=== PATIENT | male | born 1945 | race Caucasian/White ===

== ENCOUNTER 2016-03-16 10:26 | Outpatient (CLI) | payer MEDICARE | END 2016-03-16 10:27 | disposition home or self-care (01) | DX: Z95.2 Presence of prosthetic heart valve (principal); Z79.01 Long term (current) use of anticoagulants ==

== ENCOUNTER 2016-03-22 08:00 | Outpatient (CLI) | payer MEDICARE | END 2016-03-22 08:01 | disposition home or self-care (01) | DX: Z95.2 Presence of prosthetic heart valve (principal); Z79.01 Long term (current) use of anticoagulants ==

== ENCOUNTER 2016-03-24 06:15 | Day surgery (SDC) | payer MEDICARE ==
[~2016-03-24 06:15] MED LIST: MIDAZOLAM 2 MG/2 ML VIAL IVP ONE
[2016-03-24] MEDS ORDERED: PHENYLEPHRINE 2.5% OPHTH 2 ML DROPS ONE (06:24)
[2016-03-24] MEDS ORDERED: CYCLOPENTOLATE 1% OPHTH DROPS 2 ML OPTH ONE (06:45)
[2016-03-24] MEDS ORDERED: PROPARACAINE 0.5% OPHTH DROPS 15 ML OPTH ONE (06:45)
[2016-03-24] MEDS ORDERED: KETOROLAC 0.45% OPHTH DROPS OPTH ONE (06:45)
[2016-03-24] MEDS ORDERED: PHENYLEPHRINE 2.5% OPHTH 2 ML DROPS OPTH ONE (06:45)
[2016-03-24] MEDS ORDERED: LACTATED RINGERS 500 ML IV ONE (07:00)
[2016-03-24] MEDS ORDERED: EPINEPHrine 1 MG/ML AMP IVP ONE (07:30)
[2016-03-24] MEDS ORDERED: BSS/LIDOCAINE/EPINEPHRINE 1 ML SYRINGE IO ONE (07:30)
[2016-03-24] MEDS ORDERED: TRIAMCIN/MOXIFLOX/VANCO 1 ML VIAL IO ONE (07:30)
[2016-03-24] MEDS ORDERED: MIDAZOLAM 2 MG/2 ML VIAL IVP ONE (07:30)
[2016-03-24] MEDS ORDERED: LIDOCAINE-MPF 2% 5 ML VIAL IM ONE (07:30)
[2016-03-24] MEDS ORDERED: BRIMONIDINE 0.2% OPHTH DROPS 5 ML OPTH ONE (07:30)
[2016-03-24] MEDS ORDERED: CHONDR SULF/HYALURONATE SYRINGE IO ONE (07:30)
== END 2016-03-24 06:16 | disposition home or self-care (01) ==
PROC: 08RK3JZ Replacement of Left Lens with Synthetic Substitute, Percutaneous Approach (ICD-10-PCS; principal; 2016-03-24 07:30)
DX: H25.12 Age-related nuclear cataract, left eye (principal); I48.91 Unspecified atrial fibrillation; Z79.01 Long term (current) use of anticoagulants; G47.33 Obstructive sleep apnea (adult) (pediatric); H59.212 Accidental puncture and laceration of left eye and adnexa during an ophthalmic procedure; Y65.8 Other specified misadventures during surgical and medical care; Y92.234 Operating room of hospital as the place of occurrence of the external cause
CPT/HCPCS: 66984; A9270; V2632

== ENCOUNTER 2016-04-05 09:41 | Outpatient (CLI) | payer MEDICARE | END 2016-04-05 09:42 | disposition home or self-care (01) | DX: Z95.2 Presence of prosthetic heart valve (principal); Z79.01 Long term (current) use of anticoagulants ==

== ENCOUNTER 2016-04-29 14:34 | Outpatient (CLI) | payer MEDICARE | END 2016-04-29 14:35 | disposition home or self-care (01) | DX: Z95.2 Presence of prosthetic heart valve (principal); Z79.01 Long term (current) use of anticoagulants ==

== ENCOUNTER 2016-05-27 11:11 | Outpatient (CLI) | payer MEDICARE | END 2016-05-27 11:12 | disposition home or self-care (01) | DX: Z95.2 Presence of prosthetic heart valve (principal); Z79.01 Long term (current) use of anticoagulants ==

== ENCOUNTER 2016-06-03 10:00 | Outpatient (CLI) | payer MEDICARE | END 2016-06-03 10:01 | disposition home or self-care (01) | DX: Z95.2 Presence of prosthetic heart valve (principal); Z79.01 Long term (current) use of anticoagulants ==

== ENCOUNTER 2016-06-10 11:18 | Outpatient (CLI) | payer MEDICARE | END 2016-06-10 11:19 | disposition home or self-care (01) | DX: Z95.2 Presence of prosthetic heart valve (principal); Z79.01 Long term (current) use of anticoagulants ==

== ENCOUNTER 2016-06-24 11:01 | Outpatient (CLI) | payer MEDICARE | END 2016-06-24 11:02 | disposition home or self-care (01) | DX: Z95.2 Presence of prosthetic heart valve (principal); Z79.01 Long term (current) use of anticoagulants ==

== ENCOUNTER 2016-07-22 07:17 | Outpatient (CLI) | payer MEDICARE | END 2016-07-22 07:18 | disposition home or self-care (01) | LOC: LAB.F 07:17 | PROVIDERS: ATTEND Nurse Practitioner Family | DX: Z95.2 Presence of prosthetic heart valve (principal); Z79.01 Long term (current) use of anticoagulants | CPT/HCPCS: 85610 ==

== ENCOUNTER 2016-07-29 15:20 | Outpatient (CLI) | payer MEDICARE | END 2016-07-29 15:21 | disposition home or self-care (01) | LOC: LAB.F 15:20 | PROVIDERS: ATTEND Nurse Practitioner Family | DX: Z95.2 Presence of prosthetic heart valve (principal); Z79.01 Long term (current) use of anticoagulants | CPT/HCPCS: 85610 ==

== ENCOUNTER 2016-08-15 15:27 | Outpatient (CLI) | payer MEDICARE | END 2016-08-15 15:28 | disposition home or self-care (01) | LOC: LAB.S 15:27 | PROVIDERS: ATTEND Nurse Practitioner Family | DX: Z95.2 Presence of prosthetic heart valve (principal); Z79.01 Long term (current) use of anticoagulants | CPT/HCPCS: 85610 ==

== ENCOUNTER 2016-09-05 15:19 | Outpatient (CLI) | payer MEDICARE | END 2016-09-05 15:20 | disposition home or self-care (01) | LOC: LAB.F 15:19 | PROVIDERS: ATTEND Nurse Practitioner Family | DX: Z95.2 Presence of prosthetic heart valve (principal) | CPT/HCPCS: 85610 ==

== ENCOUNTER 2016-09-30 14:34 | Outpatient (CLI) | payer MEDICARE | END 2016-09-30 14:35 | disposition home or self-care (01) | LOC: LAB.F 14:34 | PROVIDERS: ATTEND Nurse Practitioner Family | DX: Z95.2 Presence of prosthetic heart valve (principal); Z79.01 Long term (current) use of anticoagulants | CPT/HCPCS: 85610 ==

== ENCOUNTER → 2016-10-10 | Outpatient (CLI) | payer MEDICARE | LOC: LAB.S 08:00 | PROVIDERS: ATTEND Nurse Practitioner Family | DX: Z95.2 Presence of prosthetic heart valve (principal); Z79.01 Long term (current) use of anticoagulants | CPT/HCPCS: 85610 ==

== ENCOUNTER 2016-10-19 15:19 | Outpatient (CLI) | payer MEDICARE | END 2016-10-19 15:20 | disposition home or self-care (01) | LOC: LAB.F 15:19 | PROVIDERS: ATTEND Nurse Practitioner Family | DX: Z95.2 Presence of prosthetic heart valve (principal); Z79.01 Long term (current) use of anticoagulants | CPT/HCPCS: 85610 ==

== ENCOUNTER 2016-11-04 08:29 | Outpatient (CLI) | payer MEDICARE | END 2016-11-04 08:30 | disposition home or self-care (01) | LOC: LAB.F 08:29 | PROVIDERS: ATTEND Nurse Practitioner Family | DX: Z95.2 Presence of prosthetic heart valve (principal); Z79.01 Long term (current) use of anticoagulants | CPT/HCPCS: 85610 ==

== ENCOUNTER 2016-12-05 15:33 | Outpatient (CLI) | payer MEDICARE | END 2016-12-05 15:34 | disposition home or self-care (01) | LOC: LAB.S 15:33 | PROVIDERS: ATTEND Nurse Practitioner Family | DX: Z95.2 Presence of prosthetic heart valve (principal); Z79.01 Long term (current) use of anticoagulants | CPT/HCPCS: 85610 ==

== ENCOUNTER 2017-01-06 09:52 | Outpatient (CLI) | payer MEDICARE | END 2017-01-06 09:53 | disposition home or self-care (01) | LOC: LAB.F 09:52 | PROVIDERS: ATTEND Nurse Practitioner Family | DX: Z95.2 Presence of prosthetic heart valve (principal); Z79.01 Long term (current) use of anticoagulants | CPT/HCPCS: 85610 ==

== ENCOUNTER 2017-01-27 09:56 | Outpatient (CLI) | payer MEDICARE | END 2017-01-27 09:57 | disposition home or self-care (01) | LOC: LAB.F 09:56 | PROVIDERS: ATTEND Nurse Practitioner Family | DX: Z95.2 Presence of prosthetic heart valve (principal); Z79.01 Long term (current) use of anticoagulants | CPT/HCPCS: 85610 ==

== ENCOUNTER 2017-03-24 10:35 | Outpatient (CLI) | payer MEDICARE | END 2017-03-24 10:36 | disposition home or self-care (01) | LOC: LAB.F 10:35 | PROVIDERS: ATTEND Nurse Practitioner Family | DX: Z95.2 Presence of prosthetic heart valve (principal); Z79.01 Long term (current) use of anticoagulants | CPT/HCPCS: 85610 ==

== ENCOUNTER 2017-03-27 10:08 | Outpatient (CLI) | payer MEDICARE | END 2017-03-27 10:09 | disposition home or self-care (01) | LOC: LAB.F 10:08 | PROVIDERS: ATTEND Nurse Practitioner Family | DX: Z95.2 Presence of prosthetic heart valve (principal); Z79.01 Long term (current) use of anticoagulants | CPT/HCPCS: 85610 ==

== ENCOUNTER 2017-04-03 14:38 | Outpatient (CLI) | payer MEDICARE | END 2017-04-03 14:39 | disposition home or self-care (01) | LOC: LAB.S 14:38 | PROVIDERS: ATTEND Nurse Practitioner Family | DX: Z95.2 Presence of prosthetic heart valve (principal); Z79.01 Long term (current) use of anticoagulants | CPT/HCPCS: 85610 ==

== ENCOUNTER 2017-04-10 15:18 | Outpatient (CLI) | payer MEDICARE | END 2017-04-10 15:19 | disposition home or self-care (01) | LOC: LAB.S 15:18 | PROVIDERS: ATTEND Nurse Practitioner Family | DX: Z95.2 Presence of prosthetic heart valve (principal); Z79.01 Long term (current) use of anticoagulants | CPT/HCPCS: 85610 ==

== ENCOUNTER 2017-04-24 08:00 | Outpatient (CLI) | payer MEDICARE | END 2017-04-24 08:01 | disposition home or self-care (01) | LOC: LAB.S 08:00 | PROVIDERS: ATTEND Nurse Practitioner Family | DX: Z95.2 Presence of prosthetic heart valve (principal); Z79.01 Long term (current) use of anticoagulants | CPT/HCPCS: 85610 ==

== ENCOUNTER 2017-05-05 09:25 | Outpatient (CLI) | payer MEDICARE | END 2017-05-05 09:26 | disposition home or self-care (01) | LOC: LAB.F 09:25 | PROVIDERS: ATTEND Nurse Practitioner Family | DX: Z95.2 Presence of prosthetic heart valve (principal); Z79.01 Long term (current) use of anticoagulants | CPT/HCPCS: 85610 ==

== ENCOUNTER 2017-05-12 09:49 | Outpatient (CLI) | payer MEDICARE | END 2017-05-12 09:50 | disposition home or self-care (01) | LOC: LAB.F 09:49 | PROVIDERS: ATTEND Nurse Practitioner Family | DX: Z95.2 Presence of prosthetic heart valve (principal); Z79.01 Long term (current) use of anticoagulants | CPT/HCPCS: 85610 ==

== ENCOUNTER 2017-05-15 08:00 | Outpatient (CLI) | payer MEDICARE | END 2017-05-15 08:01 | disposition home or self-care (01) | LOC: LAB.S 08:00 | PROVIDERS: ATTEND Nurse Practitioner Family | DX: Z95.2 Presence of prosthetic heart valve (principal); Z79.01 Long term (current) use of anticoagulants | CPT/HCPCS: 85610 ==

== ENCOUNTER 2017-05-22 10:49 | Outpatient (CLI) | payer MEDICARE | END 2017-05-22 10:50 | disposition home or self-care (01) | LOC: LAB.S 10:49 | PROVIDERS: ATTEND Nurse Practitioner Family | DX: Z95.2 Presence of prosthetic heart valve (principal); Z79.01 Long term (current) use of anticoagulants | CPT/HCPCS: 85610 ==

== ENCOUNTER 2017-06-02 08:30 | Outpatient (CLI) | payer MEDICARE | END 2017-06-02 08:31 | disposition home or self-care (01) | LOC: LAB.F 08:30 | PROVIDERS: ATTEND Nurse Practitioner Family | DX: Z95.2 Presence of prosthetic heart valve (principal); Z79.01 Long term (current) use of anticoagulants | CPT/HCPCS: 85610 ==

== ENCOUNTER 2017-06-16 09:28 | Outpatient (CLI) | payer MEDICARE | END 2017-06-16 09:29 | disposition home or self-care (01) | LOC: LAB.F 09:28 | PROVIDERS: ATTEND Nurse Practitioner Family | DX: Z95.2 Presence of prosthetic heart valve (principal); Z79.01 Long term (current) use of anticoagulants | CPT/HCPCS: 85610 ==

== ENCOUNTER 2017-07-14 07:45 | Outpatient (CLI) | payer MEDICARE | END 2017-07-14 07:46 | disposition home or self-care (01) | LOC: LAB.F 07:45 | PROVIDERS: ATTEND Nurse Practitioner Family | DX: Z95.2 Presence of prosthetic heart valve (principal); Z79.01 Long term (current) use of anticoagulants | CPT/HCPCS: 85610 ==

== ENCOUNTER 2017-07-28 08:43 | Outpatient (CLI) | payer MEDICARE | END 2017-07-28 08:44 | disposition home or self-care (01) | LOC: LAB.F 08:43 | PROVIDERS: ATTEND Nurse Practitioner Family | DX: Z79.01 Long term (current) use of anticoagulants (principal); Z95.2 Presence of prosthetic heart valve | CPT/HCPCS: 85610 ==

== ENCOUNTER 2017-08-07 14:47 | Outpatient (CLI) | payer MEDICARE ==
[2017-08-07 18:33] LABS: BASOPHILS # (AUTO) 0.1 10^3/uL (0.0-0.1); BASOPHILS % (AUTO) 1.2 %; EOSINOPHILS # (AUTO) 0.1 10^3/uL (0.0-0.7); EOSINOPHILS % (AUTO) 1.9 %; HGB - HEMOGLOBIN 14.7 g/dL (14.0-18.0); LYMPHOCYTES # (AUTO) 1.4 10^3/uL (1.5-3.5); LYMPHOCYTES % (AUTO) 25.8 %; MEAN CORPUSCULAR HEMOGLOBIN 30.3 pg (27.0-31.0); MEAN CORPUSCULAR HGB CONC 33.3 g/dL (32.0-36.0); MEAN CORPUSCULAR VOLUME 90.9 fL (80.0-94.0); MEAN PLATELET VOLUME 8.9 fL (7.4-11.4); MONOCYTES # (AUTO) 0.4 10^3/uL (0.0-1.0); MONOCYTES % (AUTO) 7.7 %; NEUTROPHILS # (AUTO) 3.5 10^3/uL (1.5-6.6); NEUTROPHILS % (AUTO) 63.4 %; PLT - PLATELET COUNT 212 10^3/uL (130-450); RED BLOOD COUNT 4.84 10^6/uL (4.70-6.10); RED CELL DISTRIBUTION WIDTH 13.8 % (12.0-15.0); WHITE BLOOD COUNT 5.5 x10^3/uL (4.8-10.8)
[2017-08-07 18:42] LABS: CREATININE 0.9 mg/dL (0.6-1.2)
== END 2017-08-07 14:48 | disposition home or self-care (01) ==
LOC: LAB.S 14:47
PROVIDERS: ATTEND Nurse Practitioner Family
DX: Z13.1 Encounter for screening for diabetes mellitus (principal); Z13.0 Encounter for screening for diseases of the blood and blood-forming organs and certain disorders involving the immune mechanism; Z95.3 Presence of xenogenic heart valve; Z95.2 Presence of prosthetic heart valve; Z79.01 Long term (current) use of anticoagulants
CPT/HCPCS: 36415; 80048; 85025; 85610

== ENCOUNTER 2017-08-09 08:03 | Outpatient (CLI) | payer MEDICARE | END 2017-08-09 08:04 | disposition home or self-care (01) | LOC: DI 08:03 | PROVIDERS: ATTEND Nurse Practitioner Family | DX: R05 Cough (principal); I77.810 Thoracic aortic ectasia; I51.7 Cardiomegaly; Z95.2 Presence of prosthetic heart valve | CPT/HCPCS: 93306 ==

== ENCOUNTER 2017-08-18 08:49 | Outpatient (CLI) | END 2017-08-18 08:50 | disposition home or self-care (01) ==

== ENCOUNTER 2017-08-25 08:28 | Outpatient (CLI) | payer MEDICARE | END 2017-08-25 08:29 | disposition home or self-care (01) | LOC: LAB.F 08:28 | PROVIDERS: ATTEND Nurse Practitioner Family | DX: Z95.2 Presence of prosthetic heart valve (principal); Z79.01 Long term (current) use of anticoagulants | CPT/HCPCS: 85610 ==

== ENCOUNTER 2017-09-01 09:37 | Outpatient (CLI) | payer MEDICARE | END 2017-09-01 09:38 | disposition home or self-care (01) | LOC: LAB.F 09:37 | PROVIDERS: ATTEND Nurse Practitioner Family | DX: Z95.2 Presence of prosthetic heart valve (principal); Z79.01 Long term (current) use of anticoagulants | CPT/HCPCS: 85610 ==

== ENCOUNTER 2017-09-08 09:06 | Outpatient (CLI) | payer MEDICARE | END 2017-09-08 09:07 | disposition home or self-care (01) | LOC: LAB.F 09:06 | PROVIDERS: ATTEND Nurse Practitioner Family | DX: Z79.01 Long term (current) use of anticoagulants (principal); Z95.2 Presence of prosthetic heart valve | CPT/HCPCS: 85610 ==

== ENCOUNTER 2017-10-09 16:09 | Outpatient (CLI) | payer MEDICARE ==
--- NOTE | 2017-10-09 16:39 | XRAY Report ---
Procedure Date: 10/09/2017 Accession Number: [id number] / [id number] Procedure: XRS - Cervical Spine 2 View CPT Code: FULL RESULT: EXAM: CERVICAL SPINE RADIOGRAPHY EXAM DATE: 10/09/2017 04:26 PM. CLINICAL HISTORY: CERVICALGIA. COMPARISONS: Cervical spine radiograph 05/18/2011. TECHNIQUE: 3 views. FINDINGS: Alignment: Straightening of the normal cervical lordosis may be positional and/or degenerative. Bones: The cervical vertebral bodies and posterior elements are well visualized from the skull base through C7-T1. No fractures or bone lesions. Disks: There is evidence of moderate multilevel cervical disk and facet degeneration, most pronounced at C4-C5 through C6-C7. Facets: As above. Soft Tissues: No prevertebral soft tissue swelling. The visualized lung apices are clear. Sternal wires are present. Tortuous, calcified aorta. IMPRESSION: 1. No acute osseous abnormality. 2. Multilevel cervical degeneration. RADIA
== END 2017-10-09 16:10 | disposition home or self-care (01) ==
LOC: DI.S 16:09
PROVIDERS: ATTEND Nurse Practitioner Family
DX: M50.321 Other cervical disc degeneration at C4-C5 level (principal); Z95.2 Presence of prosthetic heart valve; Z79.01 Long term (current) use of anticoagulants
CPT/HCPCS: 72040; 85610

== ENCOUNTER 2017-10-20 08:00 | Outpatient (CLI) | payer MEDICARE | END 2017-10-20 08:01 | LOC: LAB.F 08:00 | PROVIDERS: ATTEND Nurse Practitioner Family | DX: Z79.01 Long term (current) use of anticoagulants (principal); Z95.2 Presence of prosthetic heart valve | CPT/HCPCS: 85610 ==

== ENCOUNTER 2017-11-03 13:50 | Outpatient (CLI) | payer MEDICARE | END 2017-11-03 13:51 | disposition home or self-care (01) | LOC: LAB.F 13:50 | PROVIDERS: ATTEND Nurse Practitioner Family | DX: Z95.2 Presence of prosthetic heart valve (principal); Z79.1 Long term (current) use of non-steroidal anti-inflammatories (NSAID) | CPT/HCPCS: 85610 ==

== ENCOUNTER 2017-11-17 08:00 | Outpatient (CLI) | payer MEDICARE | END 2017-11-17 08:01 | disposition home or self-care (01) | LOC: LAB.F 08:00 | PROVIDERS: ATTEND Nurse Practitioner Family | DX: Z95.2 Presence of prosthetic heart valve (principal); Z79.01 Long term (current) use of anticoagulants | CPT/HCPCS: 85610 ==

== ENCOUNTER 2017-11-24 11:27 | Outpatient (CLI) | payer MEDICARE | END 2017-11-24 11:28 | disposition home or self-care (01) | LOC: LAB.F 11:27 | PROVIDERS: ATTEND Nurse Practitioner Family | DX: Z95.2 Presence of prosthetic heart valve (principal); Z79.01 Long term (current) use of anticoagulants | CPT/HCPCS: 85610 ==

== ENCOUNTER 2017-12-29 10:09 | Outpatient (CLI) | payer MEDICARE | END 2017-12-29 10:10 | disposition home or self-care (01) | LOC: LAB.F 10:09 | PROVIDERS: ATTEND Nurse Practitioner Family | DX: Z95.2 Presence of prosthetic heart valve (principal); Z79.01 Long term (current) use of anticoagulants | CPT/HCPCS: 85610 ==

== ENCOUNTER 2018-01-05 10:38 | Outpatient (CLI) | payer MEDICARE ==
[2018-01-05 18:00] LABS: INR 2.2 (0.8-1.2); PT - PROTHROMBIN TIME 24.3 secs (9.9-12.6)
== END 2018-01-05 10:39 | disposition home or self-care (01) ==
LOC: LAB.F 10:38
PROVIDERS: ATTEND Nurse Practitioner Family
DX: Z86.79 Personal history of other diseases of the circulatory system (principal)
CPT/HCPCS: 36415; 85610

== ENCOUNTER 2018-01-12 10:06 | Outpatient (CLI) | payer MEDICARE | END 2018-01-12 10:07 | disposition home or self-care (01) | LOC: LAB.F 10:06 | PROVIDERS: ATTEND Nurse Practitioner Family | DX: Z95.2 Presence of prosthetic heart valve (principal); Z79.01 Long term (current) use of anticoagulants | CPT/HCPCS: 85610 ==

== ENCOUNTER 2018-02-09 11:19 | Outpatient (CLI) | payer MEDICARE | END 2018-02-09 11:20 | disposition home or self-care (01) | LOC: LAB.F 11:19 | PROVIDERS: ATTEND Nurse Practitioner | DX: Z86.79 Personal history of other diseases of the circulatory system (principal); Z95.2 Presence of prosthetic heart valve | CPT/HCPCS: 85610 ==

== ENCOUNTER 2018-03-09 11:22 | Outpatient (CLI) | payer MEDICARE | END 2018-03-09 11:23 | disposition home or self-care (01) | LOC: LAB.F 11:22 | PROVIDERS: ATTEND Nurse Practitioner | DX: Z95.2 Presence of prosthetic heart valve (principal) | CPT/HCPCS: 85610 ==

== ENCOUNTER 2018-03-12 07:29 | Outpatient (CLI) | payer MEDICARE | END 2018-03-12 07:30 | disposition home or self-care (01) | LOC: LAB.F 07:29 | PROVIDERS: ATTEND Nurse Practitioner | DX: Z95.2 Presence of prosthetic heart valve (principal) | CPT/HCPCS: 85610 ==

== ENCOUNTER 2018-03-23 08:58 | Outpatient (CLI) | payer MEDICARE | END 2018-03-23 08:59 | disposition home or self-care (01) | LOC: LAB.F 08:58 | PROVIDERS: ATTEND Nurse Practitioner | DX: Z95.2 Presence of prosthetic heart valve (principal); Z86.79 Personal history of other diseases of the circulatory system | CPT/HCPCS: 85610 ==

== ENCOUNTER 2018-04-06 09:37 | Outpatient (CLI) | payer MEDICARE | END 2018-04-06 09:38 | disposition home or self-care (01) | LOC: LAB.F 09:37 | PROVIDERS: ATTEND Nurse Practitioner | DX: Z95.2 Presence of prosthetic heart valve (principal) | CPT/HCPCS: 85610 ==

== ENCOUNTER 2018-04-13 10:17 | Outpatient (CLI) | payer MEDICARE | END 2018-04-13 10:18 | disposition home or self-care (01) | LOC: LAB.F 10:17 | PROVIDERS: ATTEND Nurse Practitioner | DX: Z86.79 Personal history of other diseases of the circulatory system (principal); Z95.2 Presence of prosthetic heart valve | CPT/HCPCS: 85610 ==

== ENCOUNTER 2018-04-20 08:18 | Outpatient (CLI) | payer MEDICARE | END 2018-04-20 08:19 | disposition home or self-care (01) | LOC: LAB.F 08:18 | PROVIDERS: ATTEND Nurse Practitioner | DX: Z51.81 Encounter for therapeutic drug level monitoring (principal); Z86.79 Personal history of other diseases of the circulatory system; Z95.2 Presence of prosthetic heart valve | CPT/HCPCS: 85610 ==

== ENCOUNTER 2018-04-24 14:28 | Outpatient (CLI) | payer MEDICARE | END 2018-04-24 14:29 | disposition home or self-care (01) | LOC: SC 14:28 | PROVIDERS: ATTEND Internal Medicine Pulmonary Disease | DX: G47.33 Obstructive sleep apnea (adult) (pediatric) (principal) | CPT/HCPCS: 99203; G0463; 99212 ==

== ENCOUNTER 2018-05-04 09:40 | Outpatient (CLI) | payer MEDICARE | END 2018-05-04 09:41 | disposition home or self-care (01) | LOC: LAB.F 09:40 | PROVIDERS: ATTEND Nurse Practitioner | DX: Z86.79 Personal history of other diseases of the circulatory system (principal); Z95.2 Presence of prosthetic heart valve | CPT/HCPCS: 85610 ==

== ENCOUNTER 2018-05-07 13:24 | Outpatient (CLI) | payer MEDICARE | END 2018-05-07 13:25 | disposition home or self-care (01) | LOC: LAB.F 13:24 | PROVIDERS: ATTEND Nurse Practitioner | DX: Z86.79 Personal history of other diseases of the circulatory system (principal); Z95.2 Presence of prosthetic heart valve | CPT/HCPCS: 85610 ==

== ENCOUNTER 2018-05-14 10:35 | Outpatient (CLI) | payer MEDICARE | END 2018-05-14 10:36 | disposition home or self-care (01) | LOC: LAB.F 10:35 | PROVIDERS: ATTEND Nurse Practitioner | DX: Z95.2 Presence of prosthetic heart valve (principal); Z86.79 Personal history of other diseases of the circulatory system | CPT/HCPCS: 85610 ==

== ENCOUNTER 2018-05-21 12:38 | Outpatient (CLI) | payer MEDICARE | END 2018-05-21 23:59 | LOC: LAB.S 12:38 | PROVIDERS: ATTEND Nurse Practitioner | DX: Z86.79 Personal history of other diseases of the circulatory system (principal); Z95.2 Presence of prosthetic heart valve | CPT/HCPCS: 85610 ==

== ENCOUNTER 2018-05-28 13:25 | Outpatient (CLI) | payer MEDICARE | END 2018-05-28 23:59 | disposition home or self-care (01) | LOC: LAB.S 13:25 | PROVIDERS: ATTEND Nurse Practitioner | DX: Z86.79 Personal history of other diseases of the circulatory system (principal); Z95.2 Presence of prosthetic heart valve | CPT/HCPCS: 85610 ==

== ENCOUNTER 2018-06-04 08:00 | Outpatient (CLI) | payer MEDICARE | END 2018-06-04 23:59 | disposition home or self-care (01) | LOC: LAB.S 08:00 | PROVIDERS: ATTEND Nurse Practitioner | DX: Z86.79 Personal history of other diseases of the circulatory system (principal); Z95.2 Presence of prosthetic heart valve | CPT/HCPCS: 85610 ==

== ENCOUNTER 2018-06-18 08:00 | Outpatient (CLI) | payer MEDICARE | END 2018-06-18 23:59 | disposition home or self-care (01) | LOC: LAB.S 08:00 | PROVIDERS: ATTEND Nurse Practitioner | DX: Z95.2 Presence of prosthetic heart valve (principal); Z86.79 Personal history of other diseases of the circulatory system | CPT/HCPCS: 85610 ==

== ENCOUNTER 2018-06-20 10:30 | Outpatient (CLI) | payer MEDICARE | END 2018-06-20 10:31 | disposition home or self-care (01) | LOC: LAB.F 10:30 | PROVIDERS: ATTEND Nurse Practitioner | DX: Z86.79 Personal history of other diseases of the circulatory system (principal); Z95.2 Presence of prosthetic heart valve | CPT/HCPCS: 85610 ==

== ENCOUNTER 2018-06-29 07:19 | Outpatient (CLI) | payer MEDICARE | END 2018-06-29 07:20 | disposition home or self-care (01) | LOC: LAB.F 07:19 | PROVIDERS: ATTEND Nurse Practitioner | DX: Z86.79 Personal history of other diseases of the circulatory system (principal); Z95.2 Presence of prosthetic heart valve | CPT/HCPCS: 85610 ==

== ENCOUNTER 2018-07-09 08:00 | Outpatient (CLI) | payer MEDICARE | END 2018-07-09 23:59 | disposition home or self-care (01) | LOC: LAB.S 08:00 | PROVIDERS: ATTEND Nurse Practitioner | DX: Z95.2 Presence of prosthetic heart valve (principal); Z86.79 Personal history of other diseases of the circulatory system | CPT/HCPCS: 85610 ==

== ENCOUNTER 2018-07-16 08:00 | Outpatient (CLI) | payer MEDICARE | END 2018-07-16 23:59 | disposition home or self-care (01) | LOC: LAB.S 08:00 | PROVIDERS: ATTEND Nurse Practitioner | DX: Z95.2 Presence of prosthetic heart valve (principal); Z86.79 Personal history of other diseases of the circulatory system | CPT/HCPCS: 85610 ==

== ENCOUNTER 2018-07-24 07:48 | Outpatient (CLI) | payer MEDICARE | END 2018-07-24 07:49 | disposition home or self-care (01) | LOC: LAB.F 07:48 | PROVIDERS: ATTEND Nurse Practitioner | DX: Z86.79 Personal history of other diseases of the circulatory system (principal); Z95.2 Presence of prosthetic heart valve | CPT/HCPCS: 85610 ==

== ENCOUNTER 2018-07-30 07:03 | Outpatient (CLI) | payer MEDICARE | END 2018-07-30 07:04 | disposition home or self-care (01) | LOC: LAB.F 07:03 | PROVIDERS: ATTEND Nurse Practitioner | DX: Z86.79 Personal history of other diseases of the circulatory system (principal); Z95.2 Presence of prosthetic heart valve | CPT/HCPCS: 85610 ==

== ENCOUNTER 2018-08-07 07:10 | Outpatient (CLI) | payer MEDICARE | END 2018-08-07 07:11 | disposition home or self-care (01) | LOC: LAB.F 07:10 | PROVIDERS: ATTEND Nurse Practitioner | DX: Z86.79 Personal history of other diseases of the circulatory system (principal); Z95.2 Presence of prosthetic heart valve | CPT/HCPCS: 85610 ==

== ENCOUNTER 2018-08-17 07:23 | Outpatient (CLI) | payer MEDICARE | END 2018-08-17 07:24 | disposition home or self-care (01) | LOC: LAB.F 07:23 | PROVIDERS: ATTEND Nurse Practitioner | DX: Z86.79 Personal history of other diseases of the circulatory system (principal); Z95.2 Presence of prosthetic heart valve | CPT/HCPCS: 85610 ==

== ENCOUNTER 2018-08-28 15:13 | Outpatient (CLI) | payer MEDICARE | END 2018-08-28 15:14 | disposition home or self-care (01) | LOC: LAB.S 15:13 | PROVIDERS: ATTEND Registered Nurse | DX: Z86.79 Personal history of other diseases of the circulatory system (principal); Z95.2 Presence of prosthetic heart valve | CPT/HCPCS: 85610 ==

== ENCOUNTER 2018-09-04 06:56 | Outpatient (CLI) | payer MEDICARE | END 2018-09-04 06:57 | disposition home or self-care (01) | LOC: LAB.S 06:56 | PROVIDERS: ATTEND Nurse Practitioner | DX: Z86.79 Personal history of other diseases of the circulatory system (principal); Z95.2 Presence of prosthetic heart valve | CPT/HCPCS: 85610 ==

== ENCOUNTER 2018-09-11 08:16 | Outpatient (CLI) | payer MEDICARE | END 2018-09-11 08:17 | disposition home or self-care (01) | LOC: LAB.S 08:16 | PROVIDERS: ATTEND Registered Nurse | DX: Z95.2 Presence of prosthetic heart valve (principal) | CPT/HCPCS: 85610 ==

== ENCOUNTER 2018-10-05 09:23 | Outpatient (CLI) | payer MEDICARE | END 2018-10-05 09:24 | disposition home or self-care (01) | LOC: LAB.S 09:23 | PROVIDERS: ATTEND Registered Nurse | DX: Z95.2 Presence of prosthetic heart valve (principal) | CPT/HCPCS: 85610 ==

== ENCOUNTER 2018-10-09 06:55 | Outpatient (CLI) | payer MEDICARE | END 2018-10-09 06:56 | disposition home or self-care (01) | LOC: LAB.S 06:55 | PROVIDERS: ATTEND Registered Nurse | DX: Z95.2 Presence of prosthetic heart valve (principal) | CPT/HCPCS: 85610 ==

== ENCOUNTER 2018-10-16 06:58 | Outpatient (CLI) | payer MEDICARE | END 2018-10-16 06:59 | disposition home or self-care (01) | LOC: LAB.S 06:58 | PROVIDERS: ATTEND Registered Nurse | DX: Z95.2 Presence of prosthetic heart valve (principal) | CPT/HCPCS: 85610 ==

== ENCOUNTER 2018-10-22 06:51 | Outpatient (CLI) | payer MEDICARE | END 2018-10-22 06:52 | disposition home or self-care (01) | LOC: LAB.S 06:51 | PROVIDERS: ATTEND Registered Nurse | DX: Z95.2 Presence of prosthetic heart valve (principal) | CPT/HCPCS: 85610 ==

== ENCOUNTER 2018-10-30 07:10 | Outpatient (CLI) | payer MEDICARE | END 2018-10-30 07:11 | disposition home or self-care (01) | LOC: LAB.S 07:10 | PROVIDERS: ATTEND Registered Nurse | DX: Z95.2 Presence of prosthetic heart valve (principal) | CPT/HCPCS: 85610 ==

== ENCOUNTER 2018-11-06 07:11 | Outpatient (CLI) | payer MEDICARE | END 2018-11-06 07:12 | disposition home or self-care (01) | LOC: LAB.S 07:11 | PROVIDERS: ATTEND Registered Nurse | DX: Z95.2 Presence of prosthetic heart valve (principal) | CPT/HCPCS: 85610 ==

== ENCOUNTER 2018-11-12 06:57 | Outpatient (CLI) | payer MEDICARE | END 2018-11-12 06:58 | disposition home or self-care (01) | LOC: LAB.S 06:57 | PROVIDERS: ATTEND Registered Nurse | DX: Z95.2 Presence of prosthetic heart valve (principal) | CPT/HCPCS: 85610 ==

== ENCOUNTER 2018-11-14 07:07 | Outpatient (CLI) | payer MEDICARE | END 2018-11-14 07:08 | disposition home or self-care (01) | LOC: LAB.S 07:07 | PROVIDERS: ATTEND Registered Nurse | DX: Z95.2 Presence of prosthetic heart valve (principal) | CPT/HCPCS: 85610 ==

== ENCOUNTER 2018-11-20 07:03 | Outpatient (CLI) | payer MEDICARE | END 2018-11-20 07:04 | disposition home or self-care (01) | LOC: LAB.S 07:03 | PROVIDERS: ATTEND Registered Nurse | DX: Z95.2 Presence of prosthetic heart valve (principal) | CPT/HCPCS: 85610 ==

== ENCOUNTER 2018-11-26 11:13 | Outpatient (CLI) | payer MEDICARE | END 2018-11-26 11:14 | disposition home or self-care (01) | LOC: LAB.S 11:13 | PROVIDERS: ATTEND Registered Nurse | DX: Z95.2 Presence of prosthetic heart valve (principal) | CPT/HCPCS: 85610 ==

== ENCOUNTER 2018-12-03 07:14 | Outpatient (CLI) | payer MEDICARE | END 2018-12-03 07:15 | disposition home or self-care (01) | LOC: LAB.S 07:14 | PROVIDERS: ATTEND Registered Nurse | DX: Z95.2 Presence of prosthetic heart valve (principal) | CPT/HCPCS: 85610 ==

== ENCOUNTER 2018-12-11 13:05 | Outpatient (CLI) | payer MEDICARE | END 2018-12-11 13:06 | disposition home or self-care (01) | LOC: LAB.S 13:05 | PROVIDERS: ATTEND Registered Nurse | DX: Z95.2 Presence of prosthetic heart valve (principal) | CPT/HCPCS: 85610 ==

== ENCOUNTER 2018-12-14 07:18 | Outpatient (CLI) | payer MEDICARE | END 2018-12-14 07:19 | disposition home or self-care (01) | LOC: LAB.S 07:18 | PROVIDERS: ATTEND Registered Nurse | DX: Z95.2 Presence of prosthetic heart valve (principal) | CPT/HCPCS: 85610 ==

== ENCOUNTER 2018-12-21 09:39 | Outpatient (CLI) | payer MEDICARE | END 2018-12-21 09:40 | disposition home or self-care (01) | LOC: LAB.S 09:39 | PROVIDERS: ATTEND Registered Nurse | DX: Z95.2 Presence of prosthetic heart valve (principal) | CPT/HCPCS: 85610 ==

== ENCOUNTER 2018-12-25 07:02 | Outpatient (CLI) | payer MEDICARE | END 2018-12-25 07:03 | disposition home or self-care (01) | LOC: LAB.S 07:02 | PROVIDERS: ATTEND Registered Nurse | DX: Z86.79 Personal history of other diseases of the circulatory system (principal); R41.3 Other amnesia; Z95.2 Presence of prosthetic heart valve; Z79.01 Long term (current) use of anticoagulants | CPT/HCPCS: 36415; 81599; 82607; 84443; 85613; 85730 ==

== ENCOUNTER 2018-12-31 07:09 | Outpatient (CLI) | payer MEDICARE | END 2018-12-31 07:10 | disposition home or self-care (01) | LOC: LAB.S 07:09 | PROVIDERS: ATTEND Registered Nurse | DX: Z95.2 Presence of prosthetic heart valve (principal) | CPT/HCPCS: 85610 ==

== ENCOUNTER 2019-01-08 07:07 | Outpatient (CLI) | payer MEDICARE | END 2019-01-08 07:08 | disposition home or self-care (01) | LOC: LAB.S 07:07 | PROVIDERS: ATTEND Registered Nurse | DX: Z95.2 Presence of prosthetic heart valve (principal) | CPT/HCPCS: 85610 ==

== ENCOUNTER 2019-01-18 08:39 | Outpatient (CLI) | payer MEDICARE | END 2019-01-18 08:40 | disposition home or self-care (01) | LOC: LAB.S 08:39 | PROVIDERS: ATTEND Registered Nurse | DX: Z95.2 Presence of prosthetic heart valve (principal) | CPT/HCPCS: 85610 ==

== ENCOUNTER 2019-01-25 07:59 | Outpatient (CLI) | payer MEDICARE | END 2019-01-25 08:00 | disposition home or self-care (01) | LOC: LAB.S 07:59 | PROVIDERS: ATTEND Registered Nurse | DX: Z95.2 Presence of prosthetic heart valve (principal) | CPT/HCPCS: 85610 ==

== ENCOUNTER 2019-02-01 08:17 | Outpatient (CLI) | payer MEDICARE | END 2019-02-01 08:18 | disposition home or self-care (01) | LOC: LAB.S 08:17 | PROVIDERS: ATTEND Registered Nurse | DX: Z95.2 Presence of prosthetic heart valve (principal) | CPT/HCPCS: 85610 ==

== ENCOUNTER 2019-02-08 08:59 | Outpatient (CLI) | payer MEDICARE | END 2019-02-08 09:00 | disposition home or self-care (01) | LOC: LAB.S 08:59 | PROVIDERS: ATTEND Registered Nurse | DX: Z95.2 Presence of prosthetic heart valve (principal) | CPT/HCPCS: 85610 ==

== ENCOUNTER 2019-02-19 10:25 | Outpatient (CLI) | payer MEDICARE ==
[2019-02-19 14:24] LABS: INR 2.1 (0.8-1.2); PT - PROTHROMBIN TIME 23.3 secs (9.9-12.6)
[2019-02-19 14:41] LABS: ALBUMIN 4.2 g/dL (3.2-5.5); ALBUMIN/GLOBULIN RATIO 1.4 (1.0-2.2); BILIRUBIN,TOTAL 0.9 mg/dL (0.2-1.0); CALCIUM 8.9 mg/dL (8.5-10.3); CREATININE 0.9 mg/dL (0.6-1.2); TOTAL PROTEIN 7.2 g/dL (6.7-8.2)
== END 2019-02-19 10:26 | disposition home or self-care (01) ==
LOC: LAB.S 10:25
PROVIDERS: ATTEND Registered Nurse
DX: B35.1 Tinea unguium (principal); Z95.2 Presence of prosthetic heart valve
CPT/HCPCS: 36415; 80053; 85610

== ENCOUNTER 2019-02-22 08:00 | Outpatient (CLI) | payer MEDICARE | END 2019-02-22 23:59 | disposition home or self-care (01) | LOC: LAB.R 08:00 | PROVIDERS: ATTEND Registered Nurse | DX: J02.9 Acute pharyngitis, unspecified (principal) | CPT/HCPCS: 87070 ==

== ENCOUNTER 2019-02-28 14:36 | Outpatient (CLI) | payer MEDICARE, OTHER | END 2019-02-28 14:37 | disposition home or self-care (01) | LOC: LAB.S 14:36 | PROVIDERS: ATTEND Registered Nurse | DX: Z95.2 Presence of prosthetic heart valve (principal) | CPT/HCPCS: 85610 ==

== ENCOUNTER 2019-03-08 11:13 | Outpatient (CLI) | payer OTHER | END 2019-03-08 11:14 | disposition home or self-care (01) | LOC: LAB.S 11:13 | PROVIDERS: ATTEND Registered Nurse | DX: Z95.2 Presence of prosthetic heart valve (principal) | CPT/HCPCS: 85610 ==

== ENCOUNTER 2019-03-15 09:07 | Outpatient (CLI) | payer MEDICARE | END 2019-03-15 09:08 | disposition home or self-care (01) | LOC: LAB.S 09:07 | PROVIDERS: ATTEND Registered Nurse | DX: Z95.2 Presence of prosthetic heart valve (principal) | CPT/HCPCS: 85610 ==

== ENCOUNTER 2019-03-22 09:06 | Outpatient (CLI) | payer MEDICARE ==
[2019-03-22 18:49] LABS: ALBUMIN 4.3 g/dL (3.2-5.5); ALBUMIN/GLOBULIN RATIO 1.5 (1.0-2.2); BILIRUBIN,TOTAL 0.7 mg/dL (0.2-1.0); CALCIUM 8.8 mg/dL (8.5-10.3); CREATININE 0.8 mg/dL (0.6-1.2); TOTAL PROTEIN 7.2 g/dL (6.7-8.2)
== END 2019-03-22 09:07 | disposition home or self-care (01) ==
LOC: LAB.S 09:06
PROVIDERS: ATTEND Registered Nurse
DX: Z95.2 Presence of prosthetic heart valve (principal); B35.1 Tinea unguium
CPT/HCPCS: 36415; 80053; 85610

== ENCOUNTER 2019-03-28 12:35 | Outpatient (CLI) | payer MEDICARE | END 2019-03-28 12:36 | disposition home or self-care (01) | LOC: LAB.S 12:35 | PROVIDERS: ATTEND Registered Nurse | DX: Z95.2 Presence of prosthetic heart valve (principal) | CPT/HCPCS: 85610 ==

== ENCOUNTER 2019-04-05 09:22 | Outpatient (CLI) | payer MEDICARE | END 2019-04-05 09:23 | disposition home or self-care (01) | LOC: LAB.S 09:22 | PROVIDERS: ATTEND Registered Nurse | DX: Z95.2 Presence of prosthetic heart valve (principal) | CPT/HCPCS: 85610 ==

== ENCOUNTER 2019-04-12 08:19 | Outpatient (CLI) | payer MEDICARE | END 2019-04-12 08:20 | disposition home or self-care (01) | LOC: LAB.S 08:19 | PROVIDERS: ATTEND Registered Nurse | DX: Z95.2 Presence of prosthetic heart valve (principal) | CPT/HCPCS: 85610 ==

== ENCOUNTER 2019-04-19 09:23 | Outpatient (CLI) | payer MEDICARE | END 2019-04-19 09:24 | disposition home or self-care (01) | LOC: LAB.S 09:23 | PROVIDERS: ATTEND Registered Nurse | DX: Z95.2 Presence of prosthetic heart valve (principal) | CPT/HCPCS: 85610 ==

== ENCOUNTER 2019-04-26 08:57 | Outpatient (CLI) | payer MEDICARE | END 2019-04-26 08:58 | disposition home or self-care (01) | LOC: LAB.S 08:57 | PROVIDERS: ATTEND Registered Nurse | DX: Z95.2 Presence of prosthetic heart valve (principal) | CPT/HCPCS: 85610 ==

== ENCOUNTER 2019-05-03 09:13 | Outpatient (CLI) | payer MEDICARE | END 2019-05-03 09:14 | disposition home or self-care (01) | LOC: LAB.S 09:13 | PROVIDERS: ATTEND Registered Nurse | DX: Z95.2 Presence of prosthetic heart valve (principal) | CPT/HCPCS: 85610 ==

== ENCOUNTER 2019-05-10 09:01 | Outpatient (CLI) | payer MEDICARE | END 2019-05-10 09:02 | disposition home or self-care (01) | LOC: LAB.S 09:01 | PROVIDERS: ATTEND Registered Nurse | DX: Z95.2 Presence of prosthetic heart valve (principal) | CPT/HCPCS: 85610 ==

== ENCOUNTER 2019-05-17 08:27 | Outpatient (CLI) | payer MEDICARE | END 2019-05-17 08:28 | disposition home or self-care (01) | LOC: LAB.S 08:27 | PROVIDERS: ATTEND Registered Nurse | DX: Z95.2 Presence of prosthetic heart valve (principal) | CPT/HCPCS: 85610 ==

== ENCOUNTER 2019-05-24 08:35 | Outpatient (CLI) | payer MEDICARE | END 2019-05-24 08:36 | disposition home or self-care (01) | LOC: LAB.S 08:35 | PROVIDERS: ATTEND Registered Nurse | DX: Z95.2 Presence of prosthetic heart valve (principal) | CPT/HCPCS: 85610 ==

== ENCOUNTER 2019-06-07 12:03 | Outpatient (CLI) | payer MEDICARE | END 2019-06-07 12:04 | disposition home or self-care (01) | LOC: LAB 12:03 | PROVIDERS: ATTEND Registered Nurse | DX: Z95.2 Presence of prosthetic heart valve (principal) | CPT/HCPCS: 85610 ==

== ENCOUNTER 2019-06-14 10:34 | Outpatient (CLI) | payer MEDICARE | END 2019-06-14 10:35 | disposition home or self-care (01) | LOC: LAB 10:34 | PROVIDERS: ATTEND Registered Nurse | DX: Z95.2 Presence of prosthetic heart valve (principal) | CPT/HCPCS: 85610 ==

== ENCOUNTER 2019-06-28 11:00 | Outpatient (CLI) | payer MEDICARE | END 2019-06-28 11:01 | disposition home or self-care (01) | LOC: LAB 11:00 | PROVIDERS: ATTEND Registered Nurse | DX: Z95.2 Presence of prosthetic heart valve (principal) | CPT/HCPCS: 85610 ==

== ENCOUNTER 2019-07-12 09:46 | Outpatient (CLI) | payer MEDICARE | END 2019-07-12 09:47 | disposition home or self-care (01) | LOC: LAB 09:46 | PROVIDERS: ATTEND Registered Nurse | DX: Z95.2 Presence of prosthetic heart valve (principal) | CPT/HCPCS: 85610 ==

== ENCOUNTER 2019-07-26 09:59 | Outpatient (CLI) | payer MEDICARE | END 2019-07-26 10:00 | disposition home or self-care (01) | LOC: LAB 09:59 | PROVIDERS: ATTEND Registered Nurse | DX: Z95.2 Presence of prosthetic heart valve (principal) | CPT/HCPCS: 85610 ==

== ENCOUNTER 2019-08-22 12:47 | Outpatient (CLI) | payer MEDICARE | END 2019-08-22 12:48 | disposition home or self-care (01) | LOC: LAB.S 12:47 | PROVIDERS: ATTEND Registered Nurse | DX: Z95.2 Presence of prosthetic heart valve (principal) | CPT/HCPCS: 85610 ==

== ENCOUNTER 2019-09-20 09:32 | Outpatient (CLI) | payer MEDICARE | END 2019-09-20 09:33 | disposition home or self-care (01) | LOC: LAB.S 09:32 | PROVIDERS: ATTEND Registered Nurse | DX: Z95.2 Presence of prosthetic heart valve (principal) | CPT/HCPCS: 85610 ==

== ENCOUNTER 2019-10-11 08:09 | Outpatient (CLI) | payer OTHER ==
[2019-10-11 15:11] LABS: BASOPHILS % (AUTO) 0.8 %; EOSINOPHILS # (AUTO) 0.1 10^3/uL (0.0-0.7); HGB - HEMOGLOBIN 14.9 g/dL (14.0-18.0); LYMPHOCYTES # (AUTO) 0.8 10^3/uL (1.5-3.5); LYMPHOCYTES % (AUTO) 16.8 %; MEAN CORPUSCULAR HGB CONC 32.6 g/dL (32.0-36.0); MEAN PLATELET VOLUME 11.1 fL (7.4-11.4); MONOCYTES # (AUTO) 0.4 10^3/uL (0.0-1.0); MONOCYTES % (AUTO) 7.6 %; NEUTROPHILS # (AUTO) 3.6 10^3/uL (1.5-6.6); NEUTROPHILS % (AUTO) 73.6 %; PLT - PLATELET COUNT 220 10^3/uL (130-450); RED BLOOD COUNT 4.97 10^6/uL (4.70-6.10); RED CELL DISTRIBUTION WIDTH 12.9 % (12.0-15.0); WHITE BLOOD COUNT 4.9 x10^3/uL (4.8-10.8)
--- NOTE | 2019-10-11 15:36 | XRAY Report ---
PROCEDURE: Knee 3 View BILAT INDICATIONS: KNEE PAIN TECHNIQUE: 3 views of the bilateral knee(s) were acquired. COMPARISON: None. FINDINGS: Bones: No fractures or dislocations. No suspicious bony lesions. Left knee demonstrates moderate to severe medial as well as moderate patellofemoral compartment narro wing. There are no erosions. Prominent medial compartment periarticular osteophytes are present. The right knee demonstrates moderate to severe medial and minimal lateral as well as moderate patellofemo ral compartment narrowing. Minimal scattered periarticular osteophytes are present. Soft tissues: Minimal bilateral effusions. No suspicious soft tissue calcifications. IMPRESSION: 1. Bilateral osteoarthritic changes most severe in the medial compartment as above. Reviewed by: Toya Hanson MD on 10/11/2019 3:35 PM PDT Approved by: Toya Hanson MD on 10/11/2019 3:35 PM PDT Station ID: [id number]
[2019-10-11 16:17] LABS: ALBUMIN 4.4 g/dL (3.2-5.5); ALBUMIN/GLOBULIN RATIO 1.4 (1.0-2.2); ALKALINE PHOSPHATASE 55 IU/L (42-121); ALT ALANINE AMINOTRANSFERASE 23 IU/L (10-60); AST ASPARTATE AMINOTRANSFERASE 21 IU/L (10-42); BILIRUBIN,TOTAL 0.8 mg/dL (0.2-1.0); BUN - BLOOD UREA NITROGEN 17 mg/dL (6-20); CALCIUM 9.3 mg/dL (8.5-10.3); CARBON DIOXIDE - CO2 30 mmol/L (21-32); CHLORIDE 103 mmol/L (101-111); CHOL/HDL RATIO 3.2 (<5.0); CHOLESTEROL 221 mg/dL; CREATININE 0.9 mg/dL (0.6-1.2); GLUCOSE 102 mg/dL (70-100); HDL CHOLESTEROL 69 mg/dL; LDL CHOLESTEROL,CALCULATED 134 mg/dL; LDL/HDL RATIO 1.9 (<3.6); SODIUM 138 mmol/L (135-145); TOTAL PROTEIN 7.5 g/dL (6.7-8.2); VLDL CHOLESTEROL 18 mg/dL
== END 2019-10-11 08:10 | disposition home or self-care (01) ==
LOC: LAB.S 08:09 → DI.S 08:10
PROVIDERS: ATTEND Registered Nurse
DX: M17.0 Bilateral primary osteoarthritis of knee (principal); Z95.2 Presence of prosthetic heart valve; I48.0 Paroxysmal atrial fibrillation; R41.3 Other amnesia
CPT/HCPCS: 36415; 80053; 80061; 83721; 84443; 85025; 85610

== ENCOUNTER 2019-11-22 09:11 | Outpatient (CLI) | payer MEDICARE | END 2019-11-22 09:12 | disposition home or self-care (01) | LOC: LAB.S 09:11 | PROVIDERS: ATTEND Family Medicine | DX: Z95.2 Presence of prosthetic heart valve (principal) | CPT/HCPCS: 85610 ==

== ENCOUNTER 2019-12-27 10:03 | Outpatient (CLI) | payer MEDICARE | END 2019-12-27 10:04 | disposition home or self-care (01) | LOC: LAB.S 10:03 | PROVIDERS: ATTEND Family Medicine | DX: Z95.2 Presence of prosthetic heart valve (principal) | CPT/HCPCS: 85610 ==

== ENCOUNTER 2019-12-30 14:40 | Outpatient (CLI) | payer MEDICARE | END 2019-12-30 14:41 | disposition home or self-care (01) | LOC: LAB.S 14:40 | PROVIDERS: ATTEND Family Medicine | DX: Z95.2 Presence of prosthetic heart valve (principal) | CPT/HCPCS: 85610 ==

== ENCOUNTER 2020-01-06 09:37 | Outpatient (CLI) | payer MEDICARE | END 2020-01-06 09:38 | disposition home or self-care (01) | LOC: LAB.S 09:37 | PROVIDERS: ATTEND Registered Nurse | DX: Z95.2 Presence of prosthetic heart valve (principal) | CPT/HCPCS: 85610 ==

== ENCOUNTER 2020-01-13 12:45 | Outpatient (CLI) | payer MEDICARE | END 2020-01-13 12:46 | disposition home or self-care (01) | LOC: LAB.S 12:45 | PROVIDERS: ATTEND Family Medicine | DX: Z95.2 Presence of prosthetic heart valve (principal) | CPT/HCPCS: 85610 ==

== ENCOUNTER 2020-01-20 12:28 | Outpatient (CLI) | payer MEDICARE | END 2020-01-20 12:29 | disposition home or self-care (01) | LOC: LAB.S 12:28 | PROVIDERS: ATTEND Family Medicine | DX: Z95.2 Presence of prosthetic heart valve (principal) | CPT/HCPCS: 85610 ==

== ENCOUNTER 2020-01-31 11:17 | Outpatient (CLI) | payer MEDICARE | END 2020-01-31 11:18 | disposition home or self-care (01) | LOC: LAB.S 11:17 | PROVIDERS: ATTEND Registered Nurse | DX: Z95.2 Presence of prosthetic heart valve (principal) | CPT/HCPCS: 85610 ==

== ENCOUNTER 2020-02-17 13:37 | Outpatient (CLI) | payer MEDICARE | END 2020-02-17 13:38 | disposition home or self-care (01) | LOC: LAB.S 13:37 | PROVIDERS: ATTEND Family Medicine | DX: Z95.2 Presence of prosthetic heart valve (principal) | CPT/HCPCS: 85610 ==

== ENCOUNTER 2020-03-06 09:12 | Outpatient (CLI) | payer MEDICARE ==
--- OUTSIDE RECORDS SUMMARY | 2020-03-11 01:31 | EXTERNAL MEDICAL SUMMARY RPT | Continuity of Care Document ---
: Demographics Phone Unavailable Preferred Language Malay Marital Status Unknown Jain Affiliation Unknown Race Unknown Ethnic Group Unknown Author Organization [place] Address [address] [place] [address] Phone Care Team Providers Name Role Phone Nadiya HARKINS, Unavailable Unavailable Nadiya Parnell Unavailable Unavailable Jr Nieves Unavailable Unavailable Problems date description facility 2019-12-19 00:00:00 Other disease of nasal cavity [facility] Care and sinuses [facility] 2019-12-19 00:00:00 Cyst and mucocele of nose and [facility] nasal sinus [facility] 2019-12-19 00:00:00 Never smoker [facility] 2019-12-19 00:00:00 Infection of mucous cyst of [facility] nasal sinus [facility] 2019-12-27 10:03 PRESENCE OF PROSTHETIC HEART [facility] 2019-12-30 14:40 PRESENCE OF PROSTHETIC HEART [facility] 2020-01-06 09:37 PRESENCE OF PROSTHETIC HEART [facility] 2020-01-13 12:45 PRESENCE OF PROSTHETIC HEART [facility] 2020-01-20 12:28 PRESENCE OF PROSTHETIC HEART [facility] 2020-01-31 11:17 PRESENCE OF PROSTHETIC HEART [facility] 2020-02-17 13:37 PRESENCE OF PROSTHETIC HEART [facility] 2020-03-06 09:12 PRESENCE OF PROSTHETIC HEART [facility] Allergies date description facility SULFA (SULFONAMIDE ANTIBIOTICS) [facility] DROPERIDOL [facility] PROPOXYPHENE [facility] NAPROXEN [facility] CEPHALEXIN [facility] CLINDAMYCIN [facility] METRONIDAZOLE [facility] ERYTHROMYCIN [facility] ACETAMINOPHEN [facility] LIDOCAINE [facility] METOCLOPRAMIDE [facility] METRONIDAZOLE [facility]INE [facility] BUDESONIDE-FORMOTEROL FUMARATE [facility] CARBAMAZEPINE [facility] CEFPROZIL [facility] CHLORDIAZEPOXIDE-CLIDINIUM [facility] DICYCLOMINE HCL [facility] NO KNOWN ENVIRONMENTAL ALLERGIES [facility] PENICILLINS [facility] UNCODED NONSCREENABLE ALLERGEN [facility] ADHESIVE BANDAGE [facility] BIOFLAVONOIDS [facility] CARBAMAZEPINE [facility] METFORMIN [facility] PENICILLINS [facility] NO KNOWN ALLERGIES [facility] CITRUS AND DERIVATIVES [facility] edical [place] MILK [facility] IODINE [facility] LATEX [facility] No Known Drug Allergies [facility] MONOSODIUM GLUTAMATE [facility] RAGWEED POLLEN [facility] FENTANYL [facility] MIDAZOLAM [facility] JUNIPER [facility] AMOXICILLIN-POT CLAVULANATE [facility] SULFAMETHOXAZOLE-TRIMETHOPRIM [facility] No Known Drug Allergies [facility] Procedures date description facility 2019-12-27 00:00:00 ANTICOAG MGMT PT [facility] [place] [facility] date description facility 2019-12-27 00[facility]00[facility] date description facility 2020-01-01 00:00:00 ANTICOAG MGMT PT [facility] date description facility 2020-01-01 00:00:[facility] [place] [facility] date description facility 2020-01-06 00:00:00 ANTICOAG MGMT PT [facility] [place] date description facility 2020-01-06 00:00:00 [facility] [place] [facility] date description facility 2020-01-13 00:00:00 ANTICOAG MGMT PT [facility] [place] date description facility 2020-01-13 00:00:00 [facility] [place] [facility] date description facility 2020-01-20 00:00:00 ANTICOAG MGMT PT [facility] [place] date description facility 2020-01-20 00:00:00 [facility] [place] [facility] date description facility 2020-02-03 00:00:00 ANTICOAG MGMT PT [facility]IN [facility] [place] date description facility 2020-02-03 00:00:00 [facility] [place] [facility] date description facility 2020-02-17 00:00:00 ANTICOAG MGMT PT [facility]IN [facility] [place] date description facility 2020-02-17 00:00:00 [facility] [place] [facility] date description facility 2020-03-06 00:00:00 ANTICOAG MGMT PT WARFARIN [facility] date description facility 2020-03-06 00:00:00 [facility] Results test status date ordered by attending specimen shubham e null F 2019-12-27 DEMM. [facility] 2019-02 0 10:09:00 10:08:00 facility observation status value reference units lab abnor mal line notes range code [facility] F 5.0 0.8-1.[address] [facility] C summerd to TAMIKA beavers MA at 10 26 12/27/19 . Read back(Y/N )? Y Oral Anticoag ulant Indicati on INR rang e Venous Thrombos is, P.E. 2.0 - 3.0 Mech anical Valve 2.5 - 3.5 test status date ordered by attending specimen shubham e null F 2019-12-30 [email or web address].01 [facility] 2019-02 14:48:00 14:48:00 facility observation status value reference units lab abnor mal line notes range code [facility] F 1.5 0.8-1.2 H Y [facility] O ral Anticoag ulant Indicati on INR rang e Venous Thrombos is, P.E. 2.0 - 3.0 Mech anical Valve 2.5 - 3.5 test status date ordered by attending specimen shubham e null F 2020-01-06 KATU.11 Nadiya Parnell 9 09:43:00 09:43:00 facility observation status value reference units lab abnor mal line notes range code [facility] F 2.4 0.8-1.2 H Y [facility] O ral Anticoag ulant Indicati on INR rang e Venous Thrombos is, P.E. 2.0 - 3.0 Mech anical Valve 2.5 - 3.5 test status date ordered by attending specimen shubham e [facility] Lisandra 2020-01-13 DEM[facility]. [facility] 13:01:00 13:00:00 facility observation status value reference units lab abnor mal line notes range code [facility] F 3.8 0.8-1.2 H Y [facility] O ral Anticoag ulant Indicati on INR rang e Venous Thrombos is, P.E. 2.0 - 3.0 Mech anical Valve 2.5 - 3.5 test status date ordered by attending specimen shubham e null Lisandra 2020-01-20 DEMM. Jr Taykate 2019-02 12:42:00 12:42:00 facility observation status value reference units lab abnor mal line notes range code [facility] F 3.5 0.8-1.2 H Y [facility] O ral Anticoag ulant Indicati on INR rang e Venous Thrombos is, P.E. 2.0 - 3.0 Mech anical Valve 2.5 - 3.5 test status date ordered by attending specimen shubham e null F 2020-01-31 KATU.[email or web address] Nadiya Parnell 4 11:25:00 11:25:00 facility observation status value reference units lab abnor mal line notes range code [facility] F 3.0 0.8-1.2 H Y [facility] O ral Anticoag ulant Indicati on INR rang e Venous Thrombos is, P.E. 2.0 - 3.0 [facility] anical Valve 2.5 - 3.5 test status date ordered by attending specimen shubham e null F 2020-02-17 DEMM.01 Jr Taymler 2019-02 13:47:00 13:47:00 facility observation status value reference units lab abnor mal line notes range code [facility] F 3.4 0.8-1.2 H Y [facility] O ral Anticoag ulant Indicati on INR rang e Venous Thrombos is, P.E. 2.0 - 3.0 [facility] anical Valve 2.5 - 3.5 test status date ordered by attending specimen shubham e null F 2020-03-06 [email or web address].01A Jr Taymler 03-06 09:23:00 09:23:00 facility observation status value reference units lab abnor mal line notes range code [facility] F 3.2 0.8-1.2 H Y [facility] O ral Anticoag ulant Indicati on INR rang e Venous Thrombos is, P.E. 2.0 - 3.0 [facility] anical Valve 2.5 - 3.5 test status date ordered by attending specimen shubham e international_no unknown 2019-12-27 unknown unknown unkno wn rmalized_ratio_IN 00:00:00 R_ INR_in_Platelet_ unknown 2019-12-27 unknown unknown unkno wn poor_plasma_by_Co 00:00:00 agulation_assay international_no unknown 2020-01-01 unknown unknown unkno wn rmalized_ratio_IN 00:00:00 R_ INR_in_Platelet_ unknown 2020-01-01 unknown unknown unkno wn poor_plasma_by_Co 00:00:00 agulation_assay international_no unknown 2020-01-06 unknown unknown unkno wn rmalized_ratio_IN 00:00:00 R_ INR_in_Platelet_ unknown 2020-01-06 unknown unknown unkno wn poor_plasma_by_Co 00:00:00 agulation_assay international_no unknown 2020-01-13 unknown unknown unkno wn rmalized_ratio_IN 00:00:00 R_ INR_in_Platelet_ unknown 2020-01-13 unknown unknown unkno wn poor_plasma_by_Co 00:00:00 agulation_assay international_no unknown 2020-01-20 unknown unknown unkno wn rmalized_ratio_IN 00:00:00 R_ INR_in_Platelet_ unknown 2020-01-20 unknown unknown unkno wn poor_plasma_by_Co 00:00:00 agulation_assay international_no unknown 2020-02-03 unknown unknown unkno wn rmalized_ratio_IN 00:00:00 R_ INR_in_Platelet_ unknown 2020-02-03 unknown unknown unkno wn poor_plasma_by_Co 00:00:00 agulation_assay international_no unknown 2020-02-17 unknown unknown unkno wn rmalized_ratio_IN 00:00:00 R_ INR_in_Platelet_ unknown 2020-02-17 unknown unknown unkno wn poor_plasma_by_Co 00:00:00 agulation_assay international_no unknown 2020-03-06 unknown unknown unkno wn rmalized_ratio_IN 00:00:00 R_ INR_in_Platelet_ unknown 2020-03-06 unknown unknown unkno wn poor_plasma_by_Co 00:00:00 agulation_assay facility observation status value reference units lab abnor mal line range code notes [facility] internationa unknown 5.1 unknown _309 unknown unknown Primary Care l_normalized_ [place] ratio_INR_ [facility] INR_in_Plate unknown 5.1 unknown _6301 unknown unknown [facility] let_poor_plas -6 [facility] ma_by_Coagula tion_assay [facility] internationa unknown 1.5 unknown _309 unknown unknown [facility] l_normalized_ [place] [facility] ratio_INR_ [facility] INR_in_Plate unknown 1.5 unknown _6301 unknown unknown [facility] let_poor_plas -6 [facility] ma_by_Coagula tion_assay [facility] internationa unknown 2.4 unknown _309 unknown unknown [facility] l_normalized_ [place] [facility] ratio_INR_ [facility] INR_in_Plate unknown 2.4 unknown _6301 unknown unknown [facility] let_poor_plas -6 [facility] ma_by_Coagula tion_assay [facility] internationa unknown 3.8 unknown _309 unknown unknown [facility] l_normalized_ [place] [facility] ratio_INR_ [facility] INR_in_Plate unknown 3.8 unknown _6301 unknown unknown [facility] let_poor_plas -6 [facility] ma_by_Coagula tion_assay [facility] internationa unknown 3.5 unknown _309 unknown unknown [facility] l_normalized_ [place] [facility] ratio_INR_ [facility] INR_in_Plate unknown 3.5 unknown _6301 unknown unknown Primary Care let_poor_plas -6 [place] [facility] ma_by_Coagula tion_assay [facility] internationa unknown 3.0 unknown _309 unknown unknown [facility] l_normalized_ [facility] ratio_INR_ [facility] INR_in_Plate unknown 3.0 unknown _6301 unknown unknown Primary Care let_poor_plas -6 [place] [facility] ma_by_Coagula tion_assay [facility] internationa unknown 3.4 unknown _309 unknown unknown [facility] l_normalized_ [place] [facility] ratio_INR_ [facility] INR_in_Plate unknown 3.4 unknown _6301 unknown unknown Primary Care let_poor_plas -6 [place] [facility] ma_by_Coagula tion_assay [facility] internationa unknown 3.2 unknown _309 unknown unknown [facility] l_normalized_ [place] [facility] ratio_INR_ [facility] INR_in_Plate unknown 3.2 unknown _6301 unknown unknown [facility] let_poor_plas -6 [place] [facility] ma_by_Coagula tion_assay Social History date description facility 2019-12-19 00:00:00 Never smoker [facility] [place] [facility] Social History date description facility 2019-12-19 00:00:00 Never smoker [facility] date description facility [id number]
== END 2020-03-06 09:13 | disposition home or self-care (01) ==
LOC: LAB.S 09:12
PROVIDERS: ATTEND Family Medicine
DX: Z95.2 Presence of prosthetic heart valve (principal)
CPT/HCPCS: 85610

== ENCOUNTER 2020-04-02 08:00 | Outpatient (CLI) | payer MEDICARE | END 2020-04-02 23:59 | disposition home or self-care (01) | LOC: LAB.F 08:00 | PROVIDERS: ATTEND Registered Nurse | DX: Z79.01 Long term (current) use of anticoagulants (principal) ==

== ENCOUNTER 2020-04-09 08:00 | Outpatient (CLI) | payer MEDICARE | END 2020-04-09 23:59 | disposition home or self-care (01) | LOC: LAB.F 08:00 | PROVIDERS: ATTEND Registered Nurse | DX: Z79.01 Long term (current) use of anticoagulants (principal) ==

== ENCOUNTER 2020-04-16 08:04 | Outpatient (CLI) | payer MEDICARE | END 2020-04-16 08:05 | disposition home or self-care (01) | LOC: LAB.S 08:04 | PROVIDERS: ATTEND Family Medicine | DX: Z95.2 Presence of prosthetic heart valve (principal) | CPT/HCPCS: 85610 ==

== ENCOUNTER 2020-04-20 09:57 | Outpatient (CLI) | payer MEDICARE ==
[2020-04-20 11:21] LABS: BASOPHILS # (AUTO) 0.1 10^3/uL (0.0-0.1); BASOPHILS % (AUTO) 0.9 %; EOSINOPHILS # (AUTO) 0.1 10^3/uL (0.0-0.7); EOSINOPHILS % (AUTO) 1.7 %; HGB - HEMOGLOBIN 15.5 g/dL (14.0-18.0); LYMPHOCYTES # (AUTO) 1.1 10^3/uL (1.5-3.5); LYMPHOCYTES % (AUTO) 20.9 %; MEAN CORPUSCULAR HEMOGLOBIN 30.1 pg (27.0-31.0); MEAN CORPUSCULAR VOLUME 91.1 fL (80.0-94.0); MEAN PLATELET VOLUME 10.4 fL (7.4-11.4); MONOCYTES # (AUTO) 0.5 10^3/uL (0.0-1.0); MONOCYTES % (AUTO) 9.4 %; NEUTROPHILS # (AUTO) 3.6 10^3/uL (1.5-6.6); NEUTROPHILS % (AUTO) 66.9 %; PLT - PLATELET COUNT 232 10^3/uL (130-450); RED BLOOD COUNT 5.15 10^6/uL (4.70-6.10); RED CELL DISTRIBUTION WIDTH 12.8 % (12.0-15.0); WHITE BLOOD COUNT 5.3 x10^3/uL (4.8-10.8)
[2020-04-20 11:33] LABS: ALBUMIN 4.5 g/dL (3.2-5.5); ALBUMIN/GLOBULIN RATIO 1.4 (1.0-2.2); BILIRUBIN,TOTAL 1.4 mg/dL (0.2-1.0); CALCIUM 9.9 mg/dL (8.5-10.3); CREATININE 0.9 mg/dL (0.6-1.2); TOTAL PROTEIN 7.8 g/dL (6.7-8.2)
== END 2020-04-20 09:58 | disposition home or self-care (01) ==
LOC: LAB 09:57
PROVIDERS: ATTEND Orthopaedic Surgery
DX: Z01.812 Encounter for preprocedural laboratory examination (principal); M17.0 Bilateral primary osteoarthritis of knee; Z20.822 Contact with and (suspected) exposure to COVID-19
CPT/HCPCS: 36415; 80053; 85025; U0004; 0202U

== ENCOUNTER 2020-04-22 06:39 | Day surgery (SDC) | payer MEDICARE ==
[~2020-04-22 06:39] MED LIST changes: +ACETAMINOPHEN 1,000 MG/100 ML 100 ML IV ONE; +CELECOXIB 100 MG CAPSULE PO ONE; +DEXAMETHASONE 10 MG/ML VIAL ONE; -MIDAZOLAM 2 MG/2 ML VIAL IVP ONE; +ceFAZolin 2 GM/50 ML 2 GM/50 ML BAG IV ONE
[2020-04-22] MEDS ORDERED: LACTATED RINGERS 1,000 ML IV ONE ×3 (06:45→12:18)
[2020-04-22] MEDS ORDERED: MIDAZOLAM 2 MG/2 ML VIAL ONE (08:19)
[2020-04-22] MEDS ORDERED: ePHEDrine 50 MG/ML VIAL IVP ONE (08:29)
[2020-04-22] MEDS ORDERED: PROPOFOL 500 MG/50 ML 500 MG/50 ML VIAL ONE (08:37)
[2020-04-22] MEDS ORDERED: SEVOFLURANE 250 ML LIQUID INH ONE (08:37)
[2020-04-22] MEDS ORDERED: ONDANSETRON 4 MG/2 ML VIAL ONE (08:37)
[2020-04-22] MEDS ORDERED: PROPOFOL 200 MG/20 ML VIAL IVP ONE (08:37)
--- NOTE | 2020-04-22 09:14 | ANESTHESIA ---
Pre-Anesthesia VS, & Labs - Diagnosis Bilateral knee osteoarthritis - Procedure left total knee arthroplasty Vital Signs: Temp Pulse Resp BP Pulse Ox 36.6 C 68 16 153/86 H 99 04/22/20 06:45 04/22/20 06:45 04/22/20 06:45 04/22/20 06:45 04/22/20 06:45 Height: 5 ft 2 in Weight (kg): 79.3 kg Body Mass Index: 31.9 BMI Classification: Obese - NPO >8 hours - Lab Results Current Lab Results: Laboratory Tests 04/22/20 07:08: POC Whole Bld Glucose 96 Home Medications and Allergies Home Medications: Ambulatory Orders C,E,Zinc,Copper 11/Fdess8n/Lut [Ocuvite Adult 50 Plus Softgel] 1 each PO DAILY 04/16/20 Warfarin [Coumadin] 5 mg PO DAILY 11/05/13 Cholecalciferol (Vitamin D3) [Vitamin D3] 1 tab PO DAILY 03/24/16 Multivitamin [Multiple Vitamins] 1 tab PO DAILY 03/24/16 C,E,Zinc,Copper 11/Wxbxy2y/Lut [Ocuvite Adult 50 Plus Softgel] 1 each PO DAILY 04/16/20 Allergies/Adverse Reactions: Allergies Allergy/AdvReac Type Severity Reaction Status Date / Time No Known Drug Allergies Allergy Verified 11/05/13 14:22 Anes History & Medical History - Anesthetic History Family history of Anesthesia Complications: Denies Family history of Malignant Hyperthermia: Denies - Medical History Cardiovascular: reports: Hypertension, Atrial fibrillation, Arrhythmia (A fib), Valve disorder Pulmonary: reports: Sleep apnea, CPAP use Gastrointestinal: reports: None Urinary: reports: None Musculoskeletal: reports: Osteoarthritis Endocrine/Autoimmune: reports: None Skin: reports: Other Smoking Status: Never smoker Psychosocial: reports: No issues indicated History of Cancer?: No - Surgical History Eyes Ears Nose Throat (EENT): reports: Cataracts, Other Cardiothoracic: reports: Valve replacement Exam Dental: Dentures full Upper Mouth Openin Fingerbreadth Neck Mobility: Reduced Mallampati classification: II Thyromental Distance: less than 4 cm Respiratory: Lungs clear Cardiovascular: Other (A fib) Extremities: No clubbing Neurological: Normal gait Mental/Cognitive Status: Alert/Oriented X3 Cognitive Status: Within normal limits Plan Anesthesia Type: Spinal, Adductor Block Regional Block: Per Surgeon's request for Post Op pain control Consent for Procedure(s) Verified and Reviewed: Yes Code Status: Attempt Resuscitation ASA classification: 2-Mild systemic disease Is this case an emergency?: No
[2020-04-22] MEDS ORDERED: METOCLOPRAMIDE 10 MG/2 ML VIAL IVP PRN (09:15)
[2020-04-22] MEDS ORDERED: ePHEDrine 50 MG/ML VIAL IVP PRN (09:15)
[2020-04-22] MEDS ORDERED: ONDANSETRON 4 MG/2 ML VIAL IVP PRN ×2 (09:15→11:43)
[2020-04-22] MEDS ORDERED: HYDROmorphone 0.5 MG/0.5 ML SYRINGE IVP PRN (09:15)
[2020-04-22] MEDS ORDERED: NALOXONE 0.4 MG/ML VIAL IVP PRN (09:15)
[2020-04-22] MEDS ORDERED: ATROPINE ABBOJECT 1 MG/10 ML SYRINGE IVP PRN (09:15)
[2020-04-22] MEDS ORDERED: fentaNYL 100 MCG/2 ML VIAL IVP PRN (09:15)
[2020-04-22] MEDS ORDERED: MORPHINE 2 MG/ML CARPUJECT IVP PRN (09:15)
[2020-04-22] MEDS ORDERED: LACTATED RINGERS 1,000 ML IV SCH (10:00)
[2020-04-22] MEDS ORDERED: VANCOMYCIN 1 GM VIAL IV ONE (10:22)
[2020-04-22] MEDS ORDERED: ROPIVACAINE 0.5% PF 20 ML AMPULE ONE (10:29)
[2020-04-22] MEDS ORDERED: LIDOCAINE 2%-EPI 1:100000 20 ML MDV SUBQ ONE (10:53)
[2020-04-22] MEDS ORDERED: BUPIVACAINE 0.5% PF 30 ML VIAL INFIL ONE (10:53)
[2020-04-22] MEDS ORDERED: LIDOCAINE 2%-EPI 1:100000 20 ML MDV ONE (10:53)
[2020-04-22] MEDS ORDERED: BUPIVACAINE 0.5% PF 30 ML VIAL ONE (10:54)
--- NOTE | 2020-04-22 11:16 | OPERATIVE REPORT ---
Operative Report - General Procedure Date: 04/22/20 Planned Procedure: Left total knee arthroplasty Pre-Op Diagnosis: Varus osteoarthritis left knee Procedure Performed: Left total knee arthroplasty using all cemented components, [employer] tung 2: #6 cruciate retaining femoral component, #5 tibial baseplate with 9 mm deep dish articular insert, 29 mm biconvex all polyethylene patellar component; [employer] gentamicin antibiotic cement Post Op Diagnosis: Same as preoperative diagnosis - Procedure Note Primary Surgeon: Duke Goins MD Secondary Surgeon: Michel LOERA Anesthesia Provider: Josee Julio CRNA Anesthesia Technique: Spinal Estimated Blood Loss (mL): 200 Indications: This is a 75-year-old man with bilateral symptomatic varus osteoarthritis of knees, progressively worsening without relief from nonoperative treatment. He had fixed varus deformities bilaterally, good stability, joint line tenderness, x-rays which showed cjzn-so-eycb contact to the medial compartment with osteophytes consistent with advanced varus osteoarthritis of left knee. He had preoperative medical evaluation. He does have a history of a valve replacement and is on chronic Coumadin anticoagulation. He was seen by both cardiology and primary care. Informed consent was obtained with patient agreeing to the proposed procedure and has attended joint camp Findings: He had eburnated bone surfaces to the medial compartment on both sides of the joint with osteophytes about the entire femur and distal tibia. There was partial thickness loss to the lateral compartment. There was nonspecific synovitis. His posterior cruciate was intact, anterior cruciate ligament was absent. Complications: None noted - Other Other Information/Narrative: The patient was brought to the operating room and was placed in a supine position. She was given a adductor canal block by anesthesia. A sterile pneumatic tourniquet was applied to the proximal left thigh over cast padding. This was a conical shaped Sobia thigh tourniquet that was sterile. A bump was placed on the operating room table to facilitate knee flexion of the left knee during surgery. A timeout procedure was performed by the entire operating room team and all were in agreement. A midline longitudinal incision was made with the knee in flexion. A medial parapatellar arthrotomy was made. The anterior horn of medial and lateral menisci were released and part of patellar fat pad was excised. The knee was flexed and the patella was dislocated laterally. A drill hole was made in the intramedullary notch with a 9.5 mm drill. Osteophytes about the proximal tibia and femur had been removed with a rongeur. The distal femoral cutting guide was aligned parallel to the posterior condyles. The intramedullary josh and guide was advanced and the distal femoral guide was stabilized with half pins. The distal 5 degrees valgus cut was made through the distal femoral guide. Next the extra medullary tibial guide was assembled and applied and aligned to the mechanical axis in both sagittal and coronal planes. Tibial referencing was done to allow 3 mm of bone from the most affected side and 10 mm from the least affected side. The tibial guide was stabilized with half pins. Retractors were placed medially and laterally to protect the collateral ligaments and a retractor was placed directly against the posterior bone to sublux the tibia anteriorly. An oscillating saw was used to make the tibial proximal cut. The tibial block was removed as a single piece and the me nisci were removed as well. The extension gap was assessed with a extension block spacer using a 10 mm spacer and this was found to fit well as well as the 9 mm spacer block with the knee in 90 degrees of flexion. Next the femoral positioning guide was applied and aligned to the epicondylar axis and [place] line. This was secured in place with approximately 3 degrees of external rotation. The size of the femur at the anterior lateral trochlea was a #6. Drill holes were made in the 5 and 1 #6 cutting block was inserted and secured. The 5 cuts were made to the captured block using oscillating saw. The flexion gap was assessed with the 10 mm spacer and was found to fit well. The patella was then prepared. A biconvex patellar reamer was used. The tibial trial #5 was then applied to the tibia and aligned to the mechanical axis. The medullary drill and punch fin was utilized. Trial reduction was performed with the femoral and tibial components in place. Notch resection was then through the trial component. Pulsatile lavage was performed. A tourniquet was applied during the cementing process. The components were inserted sequentially: Tibia, femur and lastly patellar component. Excess cement was removed and the knee was placed in extension during the hardening. Three minute Dilute Betadine irrigation was performed. The knee had full range of motion, good patellar t racking. There was good stability of the knee in full extension mid flexion and 90 degrees of flexion. There was good alignment of the left knee. The tourniquet had been deflated and had been in place for 16 minutes. Hemostasis was achieved with electrocautery. The deep closure was performed with #2 Ethibond proximal and distal to the patella with the knee in 40 degrees of flexion. #1 ethibond suture was then used to close the arthrotomy incision. 2-0 Vicryl was used to close the subcutaneous tissue. 3-0 Monocryl was used to do a subcuticular skin closure. Dermabond was applied to the skin incision. After the Dermabond had hardened, a silver impregnated dressing was applied. The patient tolerated the procedure well and received 2 g of Ancef intravenously and 2 g of tranexamic acidDilute Betadine irrigation was utilized as well as vancomycin powder for the deep and superficial closures. A physician culinary assistant was utilized and was felt to be medically necessary to help with prepping draping, retraction and protection of vital structures, closure of wound and dressing.
[2020-04-22] MEDS ORDERED: DOCUSATE SODIUM 100 MG CAPSULE PO PRN (11:43)
[2020-04-22] MEDS ORDERED: SODIUM CHLORIDE FLUSH 0.9% 10 ML SYRINGE IVP PRN (11:43)
[2020-04-22] MEDS ORDERED: POTASSIUM CHLORIDE INJ 20 MEQ in SODIUM CHLORIDE 0.9% 1,000 ML IV SCH (12:00)
--- NOTE | 2020-04-22 12:32 | XRAY Report ---
PROCEDURE: Knee 2 View LT INDICATIONS: Postop TECHNIQUE: 2 views of the left knee were acquired. COMPARISON: Knee radiographs 10/11/2019 FINDINGS: Bones: Postsurgical changes are seen from left total knee arthroplasty. Hardware components are in ex pected alignment. No suspicious bony lesions. Soft tissues: Postoperative changes are seen in the soft tissues overlying the knee. IMPRESSION: Status post left total knee arthroplasty with expected postoperative findings. Reviewed by: Mac Rangel MD on 04/22/2020 12:31 PM PST Approved by: Mac Ranegl MD on 04/22/2020 12:31 PM PST Station ID: [id number]
[2020-04-22 12:45] LABS: INR 1.2 (0.8-1.2); PT - PROTHROMBIN TIME 13.3 secs (9.9-12.6)
[2020-04-22] MEDS: ACETAMINOPHEN 500 MG TABLET PO SCH ×2 (13:30→17:36)
[2020-04-22] MEDS: ceFAZolin 2 GM/50 ML 2 GM/50 ML BAG IV SCH ×2 (13:30→21:30)
[2020-04-22] MEDS: NS W/20 MEQ KCL 1,000 ML IV SCH (14:18)
--- NOTE | 2020-04-22 15:15 | ANESTHESIA POST OP EVALUATION ---
Anesthesia Post Eval - Post Anesthesia Eval Vitals: Last Vital Signs Temp 36.8 C 04/22/20 14:25 Pulse 67 04/22/20 14:25 Resp 18 04/22/20 14:25 BP 106/72 04/22/20 14:25 Pulse Ox 95 04/22/20 14:25 CV Function Including HR & BP: positive: Stable Pain Control: positive: Satisfactory Nausea & Vomiting: positive: Negative Mental Status: positive: Patient Participates Respiratory Status: Airway Patent Hydration Status: Satisfactory Anesthesia Complications: positive: None
--- NOTE | 2020-04-22 16:10 | CONSULTATION NOTE ---
DATE OF SERVICE: 04/22/2020 Physician: Priscila Tony MD HISTORY OF PRESENT ILLNESS: This is a 75-year-old male of origin. He only speaks Romanian. His is at bedside and is interpreting. The patient has a history of an aortic valve replacement, mechanical valve, done in 2004. He is on chronic Coumadin therapy. He has a history of sleep apnea and uses CPAP at home and has a history of osteoarthritis and history of mild cognitive decline with aging. The patient underwent clearance by Cardiology and his PCP to undergo elective knee surgery and he presented for total knee arthroplasty, which was done today successfully. The Hospitalist team is being called on consult to follow along for his non-orthopedic problems. The patient stopped his Coumadin 5 days before the surgery as advised by Orthopedics and his Road Contractor. There was no bridging with heparin or Lovenox or aspirin, according to the . The patient denies any cardiopulmonary complaints. He is currently postop and has knee pain, requiring narcotics. PAST MEDICAL HISTORY: Mechanical aortic valve replacement in 2004 on chronic Coumadin, sleep apnea on CPAP at home, osteoarthritis, mild cognitive impairment from aging. ALLERGIES: NONE. MEDICATIONS 1. Coumadin 5 mg daily, which he takes in the late afternoon. 2. Multivitamin daily. 3. Vitamin D3 2000 units daily. 4. Ocuvite daily. REVIEW OF SYSTEMS: A comprehensive review of systems was performed and the pertinent positives are listed, the rest are negative. SOCIAL HISTORY: He lives with his . He is a nonsmoker, unknown alcohol intake. FAMILY HISTORY: No inherited diseases. PHYSICAL EXAM GENERAL: Elderly male who is somnolent, but arouses and answers questions and speaks normally. He is in no gross distress. VITAL SIGNS: Blood pressure 129/76, heart rate 64 in sinus rhythm, afebrile, room air saturation 96%. HEENT: Unremarkable with moist oral mucosa. NECK: No JVD at a 30-degree upright angle. CHEST: Clear anteriorly. HEART: [place] mechanical S1 and S2, and a 1/6 systolic ejection murmur at the base. There is no gallop. ABDOMEN: Soft, nontender. Normal bowel sounds. EXTREMITIES: No clubbing, cyanosis, edema and the left knee is in a bandage. NEUROLOGIC: Grossly intact. LABORATORY DATA: Done several days before surgery and showed essentially normal BMP and CBC. Today, his INR is 1.2. Preop, he had a COVID test that was negative. EKG: None. IMAGING: No chest x-ray. IMPRESSION/DIAGNOSES: 1. Aortic valve disease 2. S/P mechanical aortic valve replacement, on Coumadin normally. 3. Status post left knee surgery today. 4. Osteoarthritis. 5. Sleep apnea, on CPAP. PLAN: Orthopedics wants the Coumadin not be started for 24 hours from postop, therefore at about 11:30 a.m. tomorrow, so as not to cause excessive bleeding into the operated knee. I am in agreement with this. He can then take his usual dose daily and the INR can then "buildup" to a therapeutic INR. A target INR would be 2.0 - 3.0 in a patient with a mechanical valve. Place the patient on telemetry while here. Continue with his other medications including his Ocuvite, multivitamins and vitamin D3. Proceed with physical therapy as planned post-knee surgery. Continue with pain medications as per Orthopedic orders. We will follow along with you. Thank you for allowing me to participate in the care of this patient. cc: MD Nadiya Tesfaye ARNP TD: 04/22/2020 16:01 CORRIE
[2020-04-22] MEDS: SODIUM CHLORIDE FLUSH 0.9% 10 ML SYRINGE IVP SCH (17:24)
[2020-04-22] MEDS: ethyl alcohoL 62% SWAB AMPULE NAS SCH (21:29)
[2020-04-23] MEDS: ACETAMINOPHEN 500 MG TABLET PO SCH ×4 (00:13→15:46)
[2020-04-23] MEDS: NS W/20 MEQ KCL 1,000 ML IV SCH (00:17)
[2020-04-23] MEDS: SODIUM CHLORIDE FLUSH 0.9% 10 ML SYRINGE IVP SCH ×2 (01:21→08:33)
[2020-04-23 04:43] LABS: BASOPHILS % (AUTO) 0.2 %; LYMPHOCYTES % (AUTO) 8.2 %; MEAN CORPUSCULAR HEMOGLOBIN 29.4 pg (27.0-31.0); MEAN CORPUSCULAR HGB CONC 32.3 g/dL (32.0-36.0); MEAN CORPUSCULAR VOLUME 90.9 fL (80.0-94.0); MEAN PLATELET VOLUME 10.9 fL (7.4-11.4); MONOCYTES # (AUTO) 1.3 10^3/uL (0.0-1.0); MONOCYTES % (AUTO) 10.5 %; NEUTROPHILS # (AUTO) 9.6 10^3/uL (1.5-6.6); NEUTROPHILS % (AUTO) 80.6 %; PLT - PLATELET COUNT 212 10^3/uL (130-450); RED BLOOD COUNT 4.08 10^6/uL (4.70-6.10); RED CELL DISTRIBUTION WIDTH 13.1 % (12.0-15.0); WHITE BLOOD COUNT 11.9 x10^3/uL (4.8-10.8)
[2020-04-23 04:47] LABS: INR 1.3 (0.8-1.2); PT - PROTHROMBIN TIME 14.3 secs (9.9-12.6)
[2020-04-23 04:52] LABS: CALCIUM 8.3 mg/dL (8.5-10.3); CREATININE 0.8 mg/dL (0.6-1.2)
[2020-04-23] MEDS: oxyCODONE 5 MG TABLET PO PRN ×2 (05:24→09:51)
--- NOTE | 2020-04-23 07:59 | PROVIDER PROGRESS NOTE ---
Subjective - General Procedure Date: 04/22/20 Post Op Days: 1 - Review of Systems Wound/Incisions: positive: Dressing dry and intact General: negative: Fever, Chills Pulmonary: negative: Shortness of breath Cardiovascular: negative: Chest pain Musculoskeletal: positive: Joint pain - Other Other Information/Narrative: Patient had an increase in pain when his block wore off, well controlled with oral medication Objective - Patient Data Vital Signs: Vital Signs x48h Temp Pulse Resp BP Pulse Ox 04/23/20 07:35 36.5 C 74 18 146/78 H 94 04/23/20 04:00 36.4 C L 73 18 124/82 H 95 04/23/20 00:00 36.5 C 78 18 118/67 94 Weight: Weight 04/21/20 04/22/20 04/23/20 23:59 23:59 23:59 Weight (kg) 79.3 kg Intake & Output: Intake and Output Totals x24h 04/21/20 04/22/20 04/23/20 23:59 23:59 23:59 Intake Total 600 1000 Output Total 2775 750 Balance -2175 250 - Lab Results Lab Results: 04/23/20 03:54 04/23/20 03:54 Other Lab Results: Lab Results x24hrs 04/23/20 04/23/20 04/23/20 Range/Units 03:54 03:54 03:54 WBC 11.9 H (4.8-10.8) x10^3/uL RBC 4.08 L (4.70-6.10) 10^6/uL Hgb 12.0 L (14.0-18.0) g/dL Hct 37.1 L (42.0-52.0) % MCV 90.9 (80.0-94.0) fL MCH 29.4 (27.0-31.0) pg MCHC 32.3 (32.0-36.0) g/dL RDW 13.1 (12.0-15.0) % Plt Count 212 (130-450) 10^3/uL MPV 10.9 (7.4-11.4) fL Neut # (Auto) 9.6 H (1.5-6.6) 10^3/uL Lymph # (Auto) 1.0 L (1.5-3.5) 10^3/uL [place] # (Auto) 1.3 H (0.0-1.0) 10^3/uL Eos # (Auto) 0.0 (0.0-0.7) 10^3/uL Baso # (Auto) 0.0 (0.0-0.1) 10^3/uL Absolute Nucleated RBC 0.00 x10^3/uL Nucleated RBC % 0.0 /100WBC PT 14.3 H (9.9-12.6) secs INR 1.3 H (0.8-1.2) Sodium 136 (135-145) mmol/L Potassium 3.7 (3.5-5.0) mmol/L Chloride 104 (101-111) mmol/L Carbon Dioxide 22 (21-32) mmol/L Anion Gap 10.0 (6-13) BUN 14 (6-20) mg/dL Creatinine 0.8 (0.6-1.2) mg/dL Estimated GFR (MDRD) 95 (>89) Glucose 120 H (70-100) mg/dL Calcium 8.3 L (8.5-10.3) mg/dL 04/22/20 Range/Units 12:35 WBC (4.8-10.8) x10^3/uL RBC (4.70-6.10) 10^6/uL Hgb (14.0-18.0) g/dL Hct (42.0-52.0) % MCV (80.0-94.0) fL MCH (27.0-31.0) pg MCHC (32.0-36.0) g/dL RDW (12.0-15.0) % Plt Count (130-450) 10^3/uL MPV (7.4-11.4) fL Neut # (Auto) (1.5-6.6) 10^3/uL Lymph # (Auto) (1.5-3.5) 10^3/uL [place] # (Auto) (0.0-1.0) 10^3/uL Eos # (Auto) (0.0-0.7) 10^3/uL Baso # (Auto) (0.0-0.1) 10^3/uL Absolute Nucleated RBC x10^3/uL Nucleated RBC % /100WBC PT 13.3 H (9.9-12.6) secs INR 1.2 (0.8-1.2) Sodium (135-145) mmol/L Potassium (3.5-5.0) mmol/L Chloride (101-111) mmol/L Carbon Dioxide (21-32) mmol/L Anion Gap (6-13) BUN (6-20) mg/dL Creatinine (0.6-1.2) mg/dL Estimated GFR (MDRD) (>89) Glucose (70-100) mg/dL Calcium (8.5-10.3) mg/dL - Imaging Results Radiology Imaging: positive: EMP read indepedently (Postop x-rays show good placement of total knee arthroplasty hardware no apparent loosening good anatomical alignment) - Current Medications Current Medications: Current Medications Generic Name Dose Route Start Last Admin Trade Name Freq PRN Reason Stop Dose Admin Acetaminophen 1,000 mg 04/22/20 12:00 04/23/20 05:41 Acetaminophen 500 Mg Tablet PO 1,000 mg Q6HR RUT Administration Alcohol 1 amp 04/22/20 21:00 04/22/20 21:29 Ethyl Alcohol 62% Swab Ampule IVORY 1 amp BID RUT Administration Potassium Chloride/Sodium Chloride 1,000 mls @ 100 mls/hr 04/22/20 14:00 04/23/20 00:17 Normal Saline 0.9% W/20 Meq Kcl IV 100 mls/hr .Q10H RUT Administration Oxycodone HCl 5 mg 04/22/20 11:43 04/23/20 05:24 Oxycodone 5 Mg Tablet PO 5 mg Q6HR PRN Administration PAIN >8 Sodium Chloride 10 ml 04/22/20 17:00 04/23/20 01:21 Sodium Chloride Flush 0.9% 10 Ml Syringe IVP Not Given 0100,0900,1700 RUT - Physical Exam Wound/Incisions: positive: Dressing dry and intact Skin: positive: Color nml (Patient able to move left foot and toes. Patient able to flex quad muscles.) ABX Reporting Has patient been on IV antibiotics over the past 48 hours?: Yes Impression/Plan - Problem List Problem List: Patient is a 75-year-old male Who takes Coumadin for a mechanical aortic valvepostop day 1 left total knee arthroplasty. Patient's pain is well controlled, patient is able to move his operative leg including foot and ankle and flex his quad. Provided he completes his physical therapy today and is able to safely discharge home he is cleared from a orthopedic standpoint. Patient is comanaged by hospitalist. Patient to receive initial dose 5 mg of Coumadin today around 11:30 AM and then to take his home Coumadin after discharge today starting tomorrow as normal.
--- NOTE | 2020-04-23 08:06 | Discharge Plan ---
Discharge Plan Problem Reviewed?: Yes Disposition: Home, Self Care Activity Restrictions: Wt Bearing as Tolerated Shower Restrictions: No Driving Restrictions: Yes (Need orthopedic clearance before driving) Assistance Devices: Walker (Front wheeled walker) Weight Bearing: As tolerated Additional Instructions or Follow Up instructions: Medication instructions: Take 1000 mg Tylenol and 50 mg Tramadol at 7 AM 1 PM And 8 PM Every day regardless of pain. Use 5 mg oxycodone for breakthrough pain greater than 8 out of 10. Take Celebrex 100 mg once a day at 8 AM for 7 days. Continue taking your regular dose of Coumadin every day starting on 04/25/2020 at home. Your follow-up appointment is this 04/27/2020 at 11:45 AM at the [facility] orthopedic clinic in [place]. No Smoking: If you smoke, Please STOP! Call for help. Follow-up with: Nadiya Parnell ARNP [Primary Care Provider] -
[2020-04-23] MEDS ORDERED: NS W/20 MEQ KCL 1,000 ML IV SCH (08:07)
[2020-04-23] MEDS: ethyl alcohoL 62% SWAB AMPULE NAS SCH (08:33)
[2020-04-23] MEDS ORDERED: CELECOXIB 100 MG CAPSULE PO SCH (09:00)
[2020-04-23] MEDS ORDERED: CHOLECALCIFEROL 25 MCG TABLET PO SCH (09:00)
[2020-04-23] MEDS ORDERED: MULTIVITAMIN TABLET PO SCH (09:00)
[2020-04-23] MEDS ORDERED: KETOROLAC 30 MG/ML VIAL IVP PRN (10:37)
[2020-04-23] MEDS ORDERED: WARFARIN 1 MG TABLET PO SCH (11:00)
[2020-04-23] MEDS ORDERED: WARFARIN 5 MG TABLET PO SCH (11:00)
[2020-04-23 15:34] VITALS: BP 134/83
== END 2020-04-23 16:15 | disposition home or self-care (01) ==
LOC: SDS 06:39 → MS3 13:00 → SDS 04-23 16:15
PROVIDERS: ATTEND Orthopaedic Surgery
DX: M17.12 Unilateral primary osteoarthritis, left knee (principal); I48.0 Paroxysmal atrial fibrillation; I10 Essential (primary) hypertension; G47.39 Other sleep apnea; M48.061 Spinal stenosis, lumbar region without neurogenic claudication; G89.29 Other chronic pain; M54.9 Dorsalgia, unspecified; E66.9 Obesity, unspecified; Z68.31 Body mass index [BMI] 31.0-31.9, adult; R41.840 Attention and concentration deficit; H35.30 Unspecified macular degeneration; Z79.01 Long term (current) use of anticoagulants; Z79.899 Other long term (current) drug therapy; Z95.2 Presence of prosthetic heart valve; Z99.89 Dependence on other enabling machines and devices
CPT/HCPCS: 27447; 36415; 73560; 80048; 85025; 85610; 97110; 97162; 97165; 97530; A9270; C1713; J0131; J0690; J3370; J3490; J7120

== ENCOUNTER 2020-04-28 08:51 | Outpatient (CLI) | payer MEDICARE | END 2020-04-28 08:52 | disposition home or self-care (01) | LOC: LAB.S 08:51 | PROVIDERS: ATTEND Family Medicine | DX: Z95.2 Presence of prosthetic heart valve (principal) | CPT/HCPCS: 85610 ==

== ENCOUNTER 2020-05-05 10:26 | Outpatient (CLI) | payer MEDICARE | END 2020-05-05 10:27 | disposition home or self-care (01) | LOC: LAB.S 10:26 | PROVIDERS: ATTEND Family Medicine | DX: Z95.2 Presence of prosthetic heart valve (principal) | CPT/HCPCS: 85610 ==

== ENCOUNTER 2020-05-08 07:05 | Outpatient (CLI) | payer MEDICARE | END 2020-05-08 07:06 | disposition home or self-care (01) | LOC: LAB.S 07:05 | PROVIDERS: ATTEND Family Medicine | DX: Z95.2 Presence of prosthetic heart valve (principal) | CPT/HCPCS: 85610 ==

== ENCOUNTER 2020-05-15 09:24 | Outpatient (CLI) | payer MEDICARE | END 2020-05-15 09:25 | disposition home or self-care (01) | LOC: LAB.S 09:24 | PROVIDERS: ATTEND Family Medicine | DX: Z95.2 Presence of prosthetic heart valve (principal) | CPT/HCPCS: 85610 ==

== ENCOUNTER 2020-05-18 11:15 | Outpatient (CLI) | payer MEDICARE ==
--- NOTE | 2020-05-20 20:58 | SLEEP CARE CONSULTATION ---
Information from patient questionnaire entered by Yvette Bullock. I have reviewed and concur with the information entered by Yvette Bullock. This document represents the service I personally performed and the decisions made by me, Brinda Adler MD, [facility]. History of Present Illness Service Date and Time: 05/18/2020 1115 Previous diagnosis: Severe, Obstructive Sleep Apnea-Hypopnea Syndrome AHI: 43.2 (in 2005) Reason for follow up: annual (last seen 03/2018) Equipment type: CPAP Equipment obtained from: [facility] Mask style: Full face Prior sleep studies: Yes Year and Where: 2005 - [facility] Type of Sleep Study: Polysomnography HPI additional information: HPI: Mr. Travis Peace was diagnosed to have severe obstructive sleep apnea- hypopnea syndrome and returns today with his for follow up of CPAP therapy. The patient purchased the device from [facility] and was fitted with a full face mask. He uses the device nightly and all through the night except during his recent knee replacement surgery. The compliance report shows that he uses the device 77 nights out of the past 90 nights, averaging 7.7 hours a night. He complains of insomnia but no particular problem with the device such as soreness on the face, dry nose, epistaxis, nasal congestion or headache. He thinks that the pressure of 8 cmH2O is comfortable. On the CPAP therapy he notices improvement in his sleep quality, and that he wakes up feeling fresher in the morning and more awake/alert during the day. His notices no snore at all. Kenner Sleepiness Scale score is 14. The average residual AHI is 1.1; and average air leak is 1.5 L/minute. CPAP Compliance Data - Data Reviewed with Patient Average duration of nightly device use: 7 hr 43 min Compliance rate %: 77 (90 days) Current pressure setting (cmH2O): 8 Average residual AHI: 1.1 Subjective Initial Kenner Sleepiness Scale score: 14 (in 2005) Current Kenner Sleepiness Scale score: 14 Allergies and Home Medications Drug allergies reviewed: Yes Home medication list reviewed: Yes Review of Systems Review of systems same as previous: Yes Physical Exam Height: 5 ft 2 in Weight: 172 lb Body Mass Index: 31.4 BMI Classification: Obese Impression and Plan IMPRESSION: 1. Obstructive Sleep Apnea-Hypopnea Syndrome, severe with the patient continuing to do well on nasal CPAP therapy. He has excellent compliance and significant clinical benefits. The current pressure appears effective and comfortable. Overall, he is very satisfied with treatment and plans to continue with it long-term. No adjustment is necessary today. The reason he is not getting supplies is that he thinks [facility] is still his supplier. 2. Insomnia, due to circadian rhythm disruption by his recent hospitalization. This should correct on its own once he can walk better and able to have more activities during the day. PLAN: 1. Continue with autoCPAP set at 8 cm H2O. 2. Contact [employer] for supplies. 3. Return in one year for follow up or earlier if there is any problem with the treatment. Visit Type: In Office Other Participants: Spouse/Significant Other Time Spent with Patient (minutes): 20 Provider Statement: I spent 100% of the Face to Face Visit with the patient with greater than 50% spent counseling the patient and coordination of care.
== END 2020-05-18 11:16 | disposition home or self-care (01) ==
LOC: SC 11:15
PROVIDERS: ATTEND Internal Medicine Pulmonary Disease
DX: G47.33 Obstructive sleep apnea (adult) (pediatric) (principal); E66.9 Obesity, unspecified; Z68.31 Body mass index [BMI] 31.0-31.9, adult
CPT/HCPCS: 99212; G0463

== ENCOUNTER 2020-05-19 17:21 | Outpatient (CLI) | payer MEDICARE | END 2020-05-19 17:22 | disposition critical access hospital (66) | LOC: EMS 17:21 | PROVIDERS: ATTEND Emergency Medicine | DX: R53.1 Weakness (principal); R53.83 Other fatigue; R47.02 Dysphasia | CPT/HCPCS: A0425; A0429 ==

== ENCOUNTER 2020-05-19 17:56 | Emergency (ER) | payer MEDICARE ==
--- NOTE | 2020-05-19 18:16 | ED Physician Documentation ---
History of Present Illness - Stated complaint Stated Complaint: AMS - Chief complaint Chief Complaint: Neuro - Additonal information Additional information: 75-year-old male is brought to the emergency department for evaluation of confusion and altered mental status. Through chart review it appears that he had a left knee replacement on 22 April last month. He had been recuperating at home. EMS reports that the family stated patient has been intermittently confused since being discharged from the hospital and has been sometimes slow to respond. This afternoon he laid down to take a nap and about 30 minutes later the family had a difficult time waking him up and found him unresponsive or very difficult to arouse therefore they called 911. Per EMS his blood glucose was 96 and he had a negative FAST exam. Here on presentation this gentleman is somewhat slow to respond but is able to follow commands though his verbal words are confused. There is likely a language barrier however as he is Estonian-speaking only. Much of this history is obtained from the . She reports that over the last week the patient has developed a cough. She does report that he is taking tramadol on average of twice daily but is not sure if this is contributing to his confusion. She did not like the way he responded to the oxycodone so she is refused to give him this. She denies that he has had any fevers or vomiting. He has not had any slurred words facial droop or focal arm and leg weakness. He does not have a history of previous TIA or CVA. Review of Systems Unable to obtain: AMS PD PAST MEDICAL HISTORY - Past Medical History Cardiovascular: Hypertension, Atrial fibrillation, Arrhythmia, Valve disorder Respiratory: Sleep apnea, CPAP use Endocrine/Autoimmune: None GI: None : None HEENT: Chronic vision loss, Chronic hearing loss, Other Psych: None Musculoskeletal: Osteoarthritis Derm: Other - Past Surgical History Past Surgical History: Yes Cardiovascular: Valve replacement HEENT: Cataracts, Other - Present Medications Home Medications: Ambulatory Orders Medication Instructions Recorded Confirmed Cholecalciferol (Vitamin D3) 1 tab PO DAILY 03/24/16 04/16/20 [Vitamin D3] Multivitamin [Multiple Vitamins] 1 tab PO DAILY 03/24/16 04/16/20 C,E,Zinc,Copper 11/Bfinu0j/Lut 1 each PO DAILY 04/16/20 04/16/20 [Ocuvite Adult 50 Plus Softgel] Warfarin [Coumadin] 5 mg PO .NATALIA ORELLANA,DEBO,BRETT,FR 04/23/20 04/23/20 Warfarin [Coumadin] 7.5 mg PO .Monday04/23/20 04/23/20 Amox/Clav 875/125 [Augmentin] 1 each PO Q12H #20 tablet 05/19/20 - Allergies Allergies/Adverse Reactions: Allergies Allergy/AdvReac Type Severity Reaction Status Date / Time No Known Drug Allergies Allergy Verified 05/19/20 18:05 - Social History Does the pt smoke?: No Smoking Status: Never smoker Does the pt drink ETOH?: No Does the pt have substance abuse?: No PD ED PE EXPANDED - General General: Well developed/nourished, Lethargic - Neck Neck: Supple w/out meningeal sx. No: Adenopathy - Cardiac Cardiac: Regular Rate, Regular Rhythm, Radial strong equal, Pedal strong equal, Cap refill < 2 sec - Respiratory Respiratory: Clear to ausultation arianna. No: Distress, Labored - Abdomen Abdomen: Normal Bowel sounds. No: Tender to palpation - Extremities Extremities: Tenderness, Left knee (Swollen left knee with a midline surgical incision generally intact. There is tenderness to palpation of the knee. Superior margins of the incision mildly erythematous without drainage). No: Deformity - Neuro Neuro: Confused, CNII-XII intact - GCS Eye Opening: Spontaneous Motor: Obeys Commands Verbal: Confused Total: 14 Results - Vitals Vitals: Vital Signs - 24 hr 05/19/20 05/19/20 05/19/20 18:05 20:02 21:00 Temperature 37.9 C 37.9 C 37.9 C Heart Rate 77 74 76 Respiratory 20 22 24 Rate Blood Pressure 146/87 H 126/91 H 134/80 H O2 Saturation 98 100 98 Oxygen O2 Source Room air - EKG (time done) 1814 Rate: Rate (enter#) (73) Rhythm: NSR, Other (with PAC) [place]: Normal Intervals: Normal NC QRS: LVH Ischemia: Q waves (inferior leads) Compare to prior EKG: Old EKG unavailable Computer interpretation: Agree with computer - Labs Labs: Laboratory Tests 05/19/20 05/19/20 05/19/20 18:26 18:26 18:26 WBC 7.0 RBC 4.07 L Hgb 11.7 L Hct 37.1 L MCV 91.2 MCH 28.7 MCHC 31.5 L RDW 13.3 Plt Count 413 MPV 9.2 Neut # (Auto) 4.8 Lymph # (Auto) 1.1 L [place] # (Auto) 0.8 Eos # (Auto) 0.1 Baso # (Auto) 0.1 Absolute Nucleated RBC 0.00 Nucleated RBC % 0.0 PT INR Sodium 135 Potassium 3.7 Chloride 99 L Carbon Dioxide 26 Anion Gap 10.0 BUN 17 Creatinine 1.0 Estimated GFR (MDRD) 73 L Glucose 110 H Lactic Acid 1.0 Calcium 9.1 Total Bilirubin 0.6 AST 17 ALT 16 Alkaline Phosphatase 67 Troponin I High Sens Total Protein 6.8 Albumin 3.9 Globulin 2.9 Albumin/Globulin Ratio 1.3 Urine Color Urine Clarity Urine pH Ur Specific Heath Urine Protein Urine Glucose (UA) Urine Ketones Urine Occult Blood Urine Nitrite Urine Bilirubin Urine Urobilinogen Ur Leukocyte Esterase Urine RBC Urine WBC Ur Squamous Epith Cells Urine Bacteria Urine Culture Comments Urine Opiates Screen Ur Oxycodone Screen Urine Methadone Screen Ur Propoxyphene Screen Ur Barbiturates Screen Ur Tricyclics Screen Ur Phencyclidine Scrn Ur Amphetamine Screen U Methamphetamines Scrn U Benzodiazepines Scrn Urine Cocaine Screen U Cannabinoids Screen 05/19/20 05/19/20 05/19/20 18:26 18:26 18:52 WBC RBC Hgb Hct MCV MCH MCHC RDW Plt Count MPV Neut # (Auto) Lymph # (Auto) [place] # (Auto) Eos # (Auto) Baso # (Auto) Absolute Nucleated RBC Nucleated RBC % PT 28.6 H INR 2.7 H Sodium Potassium Chloride Carbon Dioxide Anion Gap BUN Creatinine Estimated GFR (MDRD) Glucose Lactic Acid Calcium Total Bilirubin AST ALT Alkaline Phosphatase Troponin I High Sens 10.6 Total Protein Albumin Globulin Albumin/Globulin Ratio Urine Color Urine Clarity Urine pH Ur Specific Heath Urine Protein Urine Glucose (UA) Urine Ketones Urine Occult Blood Urine Nitrite Urine Bilirubin Urine Urobilinogen Ur Leukocyte Esterase Urine RBC Urine WBC Ur Squamous Epith Cells Urine Bacteria Urine Culture Comments Urine Opiates Screen NEGATIVE Ur Oxycodone Screen NEGATIVE Urine Methadone Screen NEGATIVE Ur Propoxyphene Screen NEGATIVE Ur Barbiturates Screen NEGATIVE Ur Tricyclics Screen NEGATIVE Ur Phencyclidine Scrn NEGATIVE Ur Amphetamine Screen NEGATIVE U Methamphetamines Scrn NEGATIVE U Benzodiazepines Scrn NEGATIVE Urine Cocaine Screen NEGATIVE U Cannabinoids Screen NEGATIVE 05/19/20 18:52 WBC RBC Hgb Hct MCV MCH MCHC RDW Plt Count MPV Neut # (Auto) Lymph # (Auto) [place] # (Auto) Eos # (Auto) Baso # (Auto) Absolute Nucleated RBC Nucleated RBC % PT INR Sodium Potassium Chloride Carbon Dioxide Anion Gap BUN Creatinine Estimated GFR (MDRD) Glucose Lactic Acid Calcium Total Bilirubin AST ALT Alkaline Phosphatase Troponin I High Sens Total Protein Albumin Globulin Albumin/Globulin Ratio Urine Color YELLOW Urine Clarity CLEAR Urine pH 6.0 Ur Specific Heath 1.025 Urine Protein NEGATIVE Urine Glucose (UA) NEGATIVE Urine Ketones NEGATIVE Urine Occult Blood NEGATIVE Urine Nitrite NEGATIVE Urine Bilirubin NEGATIVE Urine Urobilinogen 0.2 (NORMAL) Ur Leukocyte Esterase NEGATIVE Urine RBC None Seen Urine WBC 0-3 Ur Squamous Epith Cells RARE Squamous Urine Bacteria None Seen Urine Culture Comments NOT INDICATED Urine Opiates Screen Ur Oxycodone Screen Urine Methadone Screen Ur Propoxyphene Screen Ur Barbiturates Screen Ur Tricyclics Screen Ur Phencyclidine Scrn Ur Amphetamine Screen U Methamphetamines Scrn U Benzodiazepines Scrn Urine Cocaine Screen U Cannabinoids Screen - Rads (name of study) CXR Radiology: Final report received (Patchy left basilar opacities concerning for aspiration versus pneumonia) CT head Radiology: Final report received (No acute intracranial process) PD MEDICAL DECISION MAKING - ED course Complexity details: reviewed old records, reviewed results, re-evaluated patient, considered differential, d/w patient, d/w family ED course: This is a very well-appearing 75-year-old male that is brought to the emergency department for evaluation of confusion. He did undergo a left total knee replacement about 1 month ago and has been participating in rehab. Per his he is taking tramadol on average of about twice daily. He had also taken Celebrex for pain control as well as oxycodone for a short period of time. She does report that he has had a cough for about 1 week. On presentation he had a negative FAST exam. He did seem confused though there was a significant language barrier and by the time that his arrived to the bedside she reported that he was answering questions appropriately. CT of the head was negative. Urine drug screen urinalysis showed no signs of infection. Screening labs showed no leukocytosis. He did not have an elevated lactate. His vital signs here were normal though he did have a mild temperature elevation of 37.9. The incision on his left knee is healing well without secondary signs of infection. He is able to participate adequately in physical therapy. Chest x-ray revealed left lower lobe opacity consistent with suspected pneumonia or even aspiration pneumonia. I did discuss this case at [address] Tavarez. Patient does not meet the admission criteria and he would recommend outpatient treatment for the pneumonia. 2100: is at the bedside. I discussed the evaluation for confusion as well as the results which show a left lower lobe pneumonia. I suspect that the confusion is likely two factorial related to ramadol which can cause confusion in the elderly as well as an early pneumonia in the left lung. This gentleman was given ceftriaxone and azithromycin IV here in the emergency department and will be discharged with a 10-day course of Augmentin. I discussed with the that if at any point his cough does not improve, he has worsening confusion, develops any fevers he is to return immediately to the emergency department. Departure - Departure Disposition: 01 Home, Self Care Clinical Impression: Confusion Pneumonia Qualifiers: Pneumonia type: due to unspecified organism Laterality: left Lung location: lower lobe of lung Qualified Code(s): J18.9 - Pneumonia, unspecified organism Condition: Stable Record reviewed to determine appropriate education?: Yes Instructions: Pneumonia Dc Follow-Up: Nadiya Parnell ARNP [Primary Care Provider] - Duke Goins MD [Provider Admit Priv/Credential] - Prescriptions: Amox/Clav 875/125 [Augmentin] 1 each PO Q12H #20 tablet Comments: Endy was seen in the emergency department today for confusion. As we discussed his screening labs and urine were all essentially normal. We did do a CT of the head that was also normal. In addition to that we did perform a x- ray of his chest which did suggest that he has an early pneumonia in his left lower lobe. As we discussed I suspect that the intermittent confusion he has been having is likely due to the tramadol that he is using for pain as well as the early pneumonia. Please fill the prescription for the Augmentin and begin taking twice daily for the next 10 days. Please avoid the use of tramadol if at all possible. I would expect confusion to be improving over the next 24-48 hours. If at any point his symptoms are not improving, he develops fevers, has a worsening cough then please return immediately to the emergency department. Please discuss this emergency department visit with his primary care doctor as well as Dr. Sawyer who did the knee replacement.
[2020-05-19 18:33] LABS: BASOPHILS # (AUTO) 0.1 10^3/uL (0.0-0.1); BASOPHILS % (AUTO) 0.9 %; EOSINOPHILS # (AUTO) 0.1 10^3/uL (0.0-0.7); EOSINOPHILS % (AUTO) 1.7 %; HCT - HEMATOCRIT 37.1 % (42.0-52.0); HGB - HEMOGLOBIN 11.7 g/dL (14.0-18.0); LYMPHOCYTES # (AUTO) 1.1 10^3/uL (1.5-3.5); LYMPHOCYTES % (AUTO) 15.9 %; MEAN CORPUSCULAR HEMOGLOBIN 28.7 pg (27.0-31.0); MEAN CORPUSCULAR HGB CONC 31.5 g/dL (32.0-36.0); MEAN CORPUSCULAR VOLUME 91.2 fL (80.0-94.0); MEAN PLATELET VOLUME 9.2 fL (7.4-11.4); MONOCYTES # (AUTO) 0.8 10^3/uL (0.0-1.0); MONOCYTES % (AUTO) 11.9 %; NEUTROPHILS # (AUTO) 4.8 10^3/uL (1.5-6.6); NEUTROPHILS % (AUTO) 69.3 %; PLT - PLATELET COUNT 413 10^3/uL (130-450); RED BLOOD COUNT 4.07 10^6/uL (4.70-6.10); RED CELL DISTRIBUTION WIDTH 13.3 % (12.0-15.0)
[2020-05-19 18:39] LABS: INR 2.7 (0.8-1.2); PT - PROTHROMBIN TIME 28.6 secs (9.9-12.6)
[2020-05-19 18:45] LABS: ALBUMIN 3.9 g/dL (3.2-5.5); ALBUMIN/GLOBULIN RATIO 1.3 (1.0-2.2); BILIRUBIN,TOTAL 0.6 mg/dL (0.2-1.0); CALCIUM 9.1 mg/dL (8.5-10.3); POTASSIUM 3.7 mmol/L (3.5-5.0); TOTAL PROTEIN 6.8 g/dL (6.7-8.2)
[2020-05-19 18:56] LABS: MUDS CUTOFF CONCENTRATIONS CUTOFF CONC BELOW:
[2020-05-19 19:00] LABS: BILIRUBIN,URINE NEGATIVE (NEGATIVE); GLUCOSE, URINE (UA) NEGATIVE (NEGATIVE); KETONES,URINE (UA) NEGATIVE (NEGATIVE); LEUKOCYTE ESTERASE, URINE NEGATIVE (NEGATIVE); NITRITE,URINE NEGATIVE (NEGATIVE); OCCULT BLOOD,URINE NEGATIVE (NEGATIVE); PROTEIN,URINE NEGATIVE (NEGATIVE); UROBILINOGEN,URINE 0.2 (NORMAL) E.U./dL (NORMAL)
[2020-05-19 19:02] LABS: CLARITY,URINE CLEAR (CLEAR)
[2020-05-19 19:09] LABS: BACTERIA,URINE None Seen /HPF (None Seen); RBC,URINE None Seen /HPF (0-5); SQUAMOUS EPITHELIAL CELL,UR RARE Squamous (<= Few); WBC,URINE 0-3 /HPF (0-3)
[2020-05-19 19:10] LABS: AMPHETAMINE SCREEN,URINE NEGATIVE (NEGATIVE); BARBITURATE SCREEN,UR NEGATIVE (NEGATIVE); BENZODIAZEPINES SCREEN, URINE NEGATIVE (NEGATIVE); COCAINE SCREEN URINE NEGATIVE (NEGATIVE); METHADONE SCREEN, URINE NEGATIVE (NEGATIVE); METHAMPHETAMINES SCREEN, URINE NEGATIVE (NEGATIVE); OPIATE SCREEN, URINE NEGATIVE (NEGATIVE); OXYCODONE SCREEN, URINE NEGATIVE (NEGATIVE); PROPOXYPHENE SCREEN, URINE NEGATIVE (NEGATIVE); THC CANNABINOID SCREEN, URINE NEGATIVE (NEGATIVE); TRICYCLIC ANTIDEPRESSANT,URINE NEGATIVE (NEGATIVE)
--- NOTE | 2020-05-19 19:28 | CT Report ---
PROCEDURE: HEAD WO INDICATIONS: AMS TECHNIQUE: Noncontrast 4.5 mm thick angled axial sections acquired from the foramen magnum to the vertex. For r adiation dose reduction, the following was used: automated exposure control, adjustment of mA and/or kV according to patient size. COMPARISON: Acute altered mental status. FINDINGS: Image quality: Excellent. CSF spaces: Basal cisterns are patent. No extra-axial fluid collections. The ventricles are symmet rell in size and shape. Brain: No intracranial bleeds or masses. There is cerebral volume loss for age, with resultant vent ricular and sulcal prominence. There are periventricular and deep white matter chronic small vessel ischemic changes. There is intracranial internal carotid artery atherosclerosis. Skull and face: Calvarium and visualized facial bones appear intact, without suspicious lesions. Sinuses: Visualized sinuses and mastoids are clear. IMPRESSION: No acute intracranial disease process. Reviewed by: Carolyn Cool MD, PhD on 05/19/2020 7:27 PM PDT Approved by: Carolyn Cool MD, PhD on 05/19/2020 7:27 PM PDT Station ID: [id number]
--- NOTE | 2020-05-19 19:29 | XRAY Report ---
PROCEDURE: Chest 1 View X-Ray INDICATIONS: chest pain TECHNIQUE: One view of the chest was acquired. COMPARISON: None FINDINGS: Surgical changes and devices: Median sternotomy wires. Lungs and pleura: No pleural effusions or pneumothorax. Patchy opacity noted in the left lung base c oncerning for pneumonia versus aspiration. Mediastinum: Mediastinal contours appear normal. Heart size is normal. Bones and chest wall: No suspicious bony lesions. Overlying soft tissues appear unremarkable. IMPRESSION: Patchy left basilar opacities concerning for aspiration versus pneumonia. Reviewed by: Carolyn Cool MD, PhD on 05/19/2020 7:28 PM PDT Approved by: Carolyn Cool MD, PhD on 05/19/2020 7:28 PM PDT Station ID: [id number]
[2020-05-19] MEDS ORDERED: cefTRIAXone 1 GM in SODIUM CHLORIDE 0.9% MINIBAG 100 ML IV STA (19:36)
[2020-05-19] MEDS ORDERED: metroNIDAZOLE 500 MG/100 ML 500 MG/100 ML BAG IV ONE (19:36)
[2020-05-19] MEDS ORDERED: cefTRIAXone 1 GM VIAL ONE (19:54)
[2020-05-19 21:09] VITALS: BP 134/80
== END 2020-05-19 21:38 | disposition home or self-care (01) ==
LOC: EDUNIT# → SUPCPDRO 17:56 → ED 17:56
DX: J18.9 Pneumonia, unspecified organism (principal); I10 Essential (primary) hypertension; I48.91 Unspecified atrial fibrillation; Z79.01 Long term (current) use of anticoagulants
CPT/HCPCS: 36415; 80053; 80306; 81001; 83605; 84484; 85025; 85610; 87040; 87086; 93005; 96365; 96368; 99284

== ENCOUNTER 2020-05-21 09:52 | Outpatient (CLI) | payer MEDICARE | END 2020-05-21 09:53 | disposition home or self-care (01) | LOC: LAB.S 09:52 | PROVIDERS: ATTEND Family Medicine | DX: Z95.2 Presence of prosthetic heart valve (principal) | CPT/HCPCS: 85610 ==

== ENCOUNTER 2020-05-21 12:01 | Emergency (ER) | payer MEDICARE ==
[2020-05-21] MEDS ORDERED: SODIUM CHLORIDE 0.9% 1,000 ML IV STA (12:32)
[2020-05-21 12:53] LABS: VBG BASE EXCESS 2.3 mmol/L (-2 - +2); VBG OXYGEN SATURATION 39.4 % (60-80); VBG PCO2 47.6 mmHg (41-51); VBG PH 7.387 (7.31-7.41); VBG PO2 22.6 mmHg (25-47); VBG TOTAL CO2 29.4 mmol/L (24-29)
[2020-05-21 12:54] LABS: BASOPHILS # (AUTO) 0.1 10^3/uL (0.0-0.1); BASOPHILS % (AUTO) 1.1 %; EOSINOPHILS # (AUTO) 0.2 10^3/uL (0.0-0.7); EOSINOPHILS % (AUTO) 2.7 %; HCT - HEMATOCRIT 37.2 % (42.0-52.0); HGB - HEMOGLOBIN 11.8 g/dL (14.0-18.0); LYMPHOCYTES # (AUTO) 0.9 10^3/uL (1.5-3.5); LYMPHOCYTES % (AUTO) 13.7 %; MEAN CORPUSCULAR HEMOGLOBIN 28.9 pg (27.0-31.0); MEAN CORPUSCULAR HGB CONC 31.7 g/dL (32.0-36.0); MEAN CORPUSCULAR VOLUME 91.2 fL (80.0-94.0); MEAN PLATELET VOLUME 9.6 fL (7.4-11.4); MONOCYTES # (AUTO) 0.6 10^3/uL (0.0-1.0); NEUTROPHILS # (AUTO) 4.8 10^3/uL (1.5-6.6); NEUTROPHILS % (AUTO) 73.2 %; PLT - PLATELET COUNT 383 10^3/uL (130-450); RED BLOOD COUNT 4.08 10^6/uL (4.70-6.10); RED CELL DISTRIBUTION WIDTH 13.2 % (12.0-15.0); WHITE BLOOD COUNT 6.6 x10^3/uL (4.8-10.8)
[2020-05-21 13:07] LABS: ALBUMIN 3.8 g/dL (3.2-5.5); ALBUMIN/GLOBULIN RATIO 1.2 (1.0-2.2); BILIRUBIN,TOTAL 0.5 mg/dL (0.2-1.0); CALCIUM 9.3 mg/dL (8.5-10.3); CREATININE 0.8 mg/dL (0.6-1.2); POTASSIUM 4.1 mmol/L (3.5-5.0); TOTAL PROTEIN 7.1 g/dL (6.7-8.2)
[2020-05-21] MEDS ORDERED: IOVERSOL 320 100 ML VIAL IVP ONE ×2 (13:18→14:01)
[2020-05-21 13:43] LABS: BILIRUBIN,URINE NEGATIVE (NEGATIVE); GLUCOSE, URINE (UA) NEGATIVE (NEGATIVE); KETONES,URINE (UA) NEGATIVE (NEGATIVE); LEUKOCYTE ESTERASE, URINE NEGATIVE (NEGATIVE); NITRITE,URINE NEGATIVE (NEGATIVE); OCCULT BLOOD,URINE NEGATIVE (NEGATIVE); PH,URINE 6.5 PH (5.0-7.5); PROTEIN,URINE NEGATIVE (NEGATIVE); UROBILINOGEN,URINE 1 (NORMAL) E.U./dL (NORMAL)
[2020-05-21 13:45] LABS: CLARITY,URINE CLEAR (CLEAR)
[2020-05-21 14:03] LABS: BACTERIA,URINE None Seen /HPF (None Seen); RBC,URINE None Seen /HPF (0-5); SQUAMOUS EPITHELIAL CELL,UR NONE SEEN (<= Few); WBC,URINE 0-3 /HPF (0-3)
--- NOTE | 2020-05-21 14:30 | CT Report ---
PROCEDURE: ANGIO CHEST W/WO INDICATIONS: PE study CONTRAST: IV CONTRAST: Optiray 320 ml: 80 PO CONTRAST: *NO PO CONTRAST TECHNIQUE: After the administration of intravenous contrast, 2 mm thick sections acquired from the pulmonary api reyes to the posterior costophrenic angles. 3-dimensional maximum intensity projection (MIP) coronal a nd sagittal reformats were then acquired through the thorax. For radiation dose reduction, the follow ing was used: automated exposure control, adjustment of mA and/or kV according to patient size. COMPARISON: None FINDINGS: Image quality: Excellent. Pulmonary arteries: Pulmonary arteries are normal in size, and demonstrate no intraluminal filling d efects to suggest central pulmonary embolism. Lungs and pleura: Lungs are clear. Atelectasis noted in the dependent portion of the lungs. 4 mm ca lcified granuloma noted in the left lung base. No pleural effusions or pneumothorax. Central and per ipheral airways are patent. Mediastinum: Heart is enlarged. Aortic valve prosthesis noted. Atherosclerotic calcifications noted in the aorta, great vessels and coronary vasculature. No mediastinal or hilar adenopathy. 5.0 x 5.1 cm ascending thoracic aortic aneurysm. Esophagus is normal in caliber, without hiatal hernia. Bones and chest wall: Median sternotomy wires. No suspicious bony lesions. Ribs and thoracic spine appear intact throughout. Spine degenerative disc disease and facet arthropathy are noted. No axillar y or supraclavicular adenopathy. Abdomen: Visualized upper abdominal solid organs appear normal in the early arterial phase of enhanc ement. IMPRESSION: 1. No pulmonary embolus. 2. No lung consolidation or pleural effusions. 3. Atherosclerosis including the coronary vasculature. 4. Cardiomegaly. 5. 5.0 x 5.1 cm descending thoracic aortic aneurysm. Reviewed by: Carolyn Cool MD, PhD on 05/21/2020 2:29 PM PDT Approved by: Carolyn Cool MD, PhD on 05/21/2020 2:29 PM PDT Station ID: [id number]
--- NOTE | 2020-05-21 16:29 | ED Physician Documentation ---
History of Present Illness - Stated complaint Stated Complaint: ams - Chief complaint Chief Complaint: Neuro - History obtained from History obtained from: Patient, Family (, daughter) - Additonal information Additional information: 75yM with pmh medication induced delirium on recent hospitalization, also with history of knee replacement at that time in March, p/w intermittent confusion since surgery. patient was on tramadol but it was discontinued two days ago due to suspected contribution to his confusion. also with intermittent nonproductive cough and mild sob. he was dx with possible pna on xray two days ago. denies fevers, chest pain, back pain, hemoptysis, leg swelling (aside from at surgical site). no prior hx clots. of note patient is on warfarin s/p valvular replacement but it was briefly paused for surgery. Review of Systems Unable to obtain: Confused PD PAST MEDICAL HISTORY - Past Medical History Cardiovascular: Hypertension, Atrial fibrillation, Arrhythmia, Valve disorder Respiratory: Sleep apnea, CPAP use Endocrine/Autoimmune: None GI: None : None HEENT: Chronic vision loss, Chronic hearing loss, Other Psych: None Musculoskeletal: Osteoarthritis Derm: Other - Past Surgical History Past Surgical History: Yes Cardiovascular: Valve replacement HEENT: Cataracts, Other - Present Medications Home Medications: Ambulatory Orders Medication Instructions Recorded Confirmed Cholecalciferol (Vitamin D3) 1 tab PO DAILY 03/24/16 05/21/20 [Vitamin D3] Multivitamin [Multiple Vitamins] 1 tab PO DAILY 03/24/16 05/21/20 C,E,Zinc,Copper 11/Bofhv7h/Lut 1 each PO DAILY 04/16/20 05/21/20 [Ocuvite Adult 50 Plus Softgel] Warfarin [Coumadin] 5 mg PO .ORELLANA,MO,TU,WE,FR 04/23/20 05/21/20 Warfarin [Coumadin] 7.5 mg PO .Monday04/23/20 05/21/20 Amox/Clav 875/125 [Augmentin] 1 each PO Q12H #20 tablet 05/19/20 05/21/20 - Allergies Allergies/Adverse Reactions: Allergies Allergy/AdvReac Type Severity Reaction Status Date / Time No Known Drug Allergies Allergy Verified 05/21/20 12:12 - Social History Does the pt smoke?: No Smoking Status: Never smoker Does the pt drink ETOH?: No Does the pt have substance abuse?: No PD ED PE NORMAL - Vitals Vital signs reviewed: Yes - General General: No acute distress, Well developed/nourished, Other (AOX2) - HEENT HEENT: Atraumatic, PERRL, EOMI, Moist mucous membranes - Neck Neck: Supple, no meningeal sign - Cardiac Cardiac: RRR - Respiratory Respiratory: No respiratory distress, Clear bilaterally, Other (BL dependent rhonchi. mild tachypnea with shallow breaths. no increased wob) - Abdomen Abdomen: Non tender, Non distended - Derm Derm: Normal color, Warm and dry - Neuro Neuro: cord splicer 2-12 intact, No motor deficit, No sensory deficit, Normal speech - Psych Psych: Normal mood, Normal affect Results - Vitals Vitals: Vital Signs - 24 hr 05/21/20 05/21/20 05/21/20 12:07 13:07 13:30 Temperature 36.7 C Heart Rate 72 68 86 Respiratory 14 22 20 Rate Blood Pressure 138/75 H 146/92 H 146/95 H O2 Saturation 97 100 99 05/21/20 05/21/20 05/21/20 14:08 14:30 15:00 Temperature Heart Rate 73 70 72 Respiratory 25 H 20 26 H Rate Blood Pressure 151/80 H 156/87 H 141/82 H O2 Saturation 99 99 98 05/21/20 05/21/20 05/21/20 15:42 16:00 16:30 Temperature 98.5 C H Heart Rate 71 75 Respiratory 22 22 Rate Blood Pressure 117/64 144/90 H O2 Saturation 98 98 05/21/20 16:42 Temperature Heart Rate 74 Respiratory 20 Rate Blood Pressure 144/90 H O2 Saturation 95 Oxygen O2 Source Room air - Labs Labs: Laboratory Tests 05/21/20 05/21/20 05/21/20 12:48 12:48 12:48 WBC 6.6 RBC 4.08 L Hgb 11.8 L Hct 37.2 L MCV 91.2 MCH 28.9 MCHC 31.7 L RDW 13.2 Plt Count 383 MPV 9.6 Neut # (Auto) 4.8 Lymph # (Auto) 0.9 L [place] # (Auto) 0.6 Eos # (Auto) 0.2 Baso # (Auto) 0.1 Absolute Nucleated RBC 0.00 Nucleated RBC % 0.0 VBG pH VBG pCO2 VBG pO2 VBG HCO3 VBG Total CO2 VBG O2 Saturation VBG Base Excess Sodium 138 Potassium 4.1 Chloride 102 Carbon Dioxide 28 Anion Gap 8.0 BUN 18 Creatinine 0.8 Estimated GFR (MDRD) 95 Glucose 109 H Lactic Acid 0.9 Calcium 9.3 Total Bilirubin 0.5 AST 17 ALT 16 Alkaline Phosphatase 66 Total Protein 7.1 Albumin 3.8 Globulin 3.3 Albumin/Globulin Ratio 1.2 Urine Color Urine Clarity Urine pH Ur Specific [place] Urine Protein Urine Glucose (UA) Urine Ketones Urine Occult Blood Urine Nitrite Urine Bilirubin Urine Urobilinogen Ur Leukocyte Esterase Urine RBC Urine WBC Ur Squamous Epith Cells Urine Bacteria Urine Culture Comments 05/21/20 05/21/20 12:48 13:30 WBC RBC Hgb Hct MCV MCH MCHC RDW Plt Count MPV Neut # (Auto) Lymph # (Auto) [place] # (Auto) Eos # (Auto) Baso # (Auto) Absolute Nucleated RBC Nucleated RBC % VBG pH 7.387 VBG pCO2 47.6 VBG pO2 22.6 L VBG HCO3 28.0 VBG Total CO2 29.4 H VBG O2 Saturation 39.4 L VBG Base Excess 2.3 H Sodium Potassium Chloride Carbon Dioxide Anion Gap BUN Creatinine Estimated GFR (MDRD) Glucose Lactic Acid Calcium Total Bilirubin AST ALT Alkaline Phosphatase Total Protein Albumin Globulin Albumin/Globulin Ratio Urine Color YELLOW Urine Clarity CLEAR Urine pH 6.5 Ur Specific [place] 1.020 Urine Protein NEGATIVE Urine Glucose (UA) NEGATIVE Urine Ketones NEGATIVE Urine Occult Blood NEGATIVE Urine Nitrite NEGATIVE Urine Bilirubin NEGATIVE Urine Urobilinogen 1 (NORMAL) Ur Leukocyte Esterase NEGATIVE Urine RBC None Seen Urine WBC 0-3 Ur Squamous Epith Cells NONE SEEN Urine Bacteria None Seen Urine Culture Comments NOT INDICATED PD MEDICAL DECISION MAKING - ED course ED course: I d/w family in regards to his results including aortic aneurysm which will need ct surgery f/u at [facility]. he may also need admission for occult pneumonia. No fever on rectal temp and he is feeling better in the ED. AOX2. I discussed with Dr. Ramos who is our hospitalist today and she is familiar with the patient and states that he is highly sensitive to narcotic medication including tramadol. He has stopped the medication as of 2 days ago and we have advised the family to continue withdrawing all narcotic potentially sedating medications since he is so sensitive to it. Since his CT shows only atelectasis and no pneumonia we will plan to discharge with close outpatient follow-up with his primary doctor. Incentive spirometer and respiratory therapy education given. Please strict return precautions given. d/w Kinsey Baker - plan for CT surgeon Dr. Palacios to see him as an outpatient. Departure - Departure Disposition: 01 Home, Self Care Clinical Impression: Dementia, Atelectasis, Cough, Ascending aortic aneurysm Condition: Good Instructions: Aneurysm Abdominal Aortic, ED Confusion Follow-Up: Ana Palacios MD [Physician No Access] - Print Language: Liberian Comments: You were seen in the emergency department for cough and confusion. Your CT of your chest did not show any signs of a pulmonary embolism or pneumonia. You do have some smashed lung in the lower lung zuniga. This is called atelectasis. It is important to use an incentive spirometer and take lots of deep breaths and walk around regularly every day. Continue the full course of antibiotics (Augmentin) as prescribed. In addition to this, we did find that you have a Thoracic aortic aneurysm. I spoke with CT surgery at [facility] and they are expecting you to call to make a follow-up appointment. Their number is [phone]. Dr. Palacios is a cardiothoracic surgeon that can help with follow-up about this aneurysm. Please return to the emergency department if you have any new or worsening symptoms. Call today to make an appointment with your primary doctor. Discharge Date/Time: 05/21/20 17:00
[2020-05-21 16:38] VITALS: BP 144/90
== END 2020-05-21 17:00 | disposition home or self-care (01) ==
LOC: ED 12:01
DX: F03.90 Unspecified dementia, unspecified severity, without behavioral disturbance, psychotic disturbance, mood disturbance, and anxiety (principal); J98.11 Atelectasis; R05 Cough; I71.2 Thoracic aortic aneurysm, without rupture; Z95.2 Presence of prosthetic heart valve
CPT/HCPCS: 36415; 71275; 80053; 81001; 82803; 83605; 85025; 85610; 87040; 96360; 99284; 99285; Q9967; 87086

== ENCOUNTER 2020-05-28 10:34 | Outpatient (CLI) | payer MEDICARE | END 2020-05-28 10:35 | disposition home or self-care (01) | LOC: LAB.S 10:34 | PROVIDERS: ATTEND Family Medicine | DX: Z95.2 Presence of prosthetic heart valve (principal) | CPT/HCPCS: 85610 ==

== ENCOUNTER 2020-06-04 09:23 | Outpatient (CLI) | payer MEDICARE ==
--- NOTE | 2020-06-04 10:23 | XRAY Report ---
PROCEDURE: Knee Standing LT INDICATIONS: LEFT KNEE PAIN, POST-OP TECHNIQUE: 4 views of the left knee. COMPARISON: 04/22/2020. FINDINGS: Bones: Patient is status post left total knee arthroplasty with anatomic left knee alignment. No acut e fractures or dislocations. No gross hardware loosening or failure. No suspicious bony lesions. Rochelle int spaces appear normal with weightbearing. Soft tissues: Moderate suprapatellar joint effusion is seen.. No suspicious soft tissue calcificatio n. IMPRESSION: Prior left total knee arthroplasty with anatomic left knee alignment. No gross hardware complication. No acute fracture or dislocation. Reviewed by: Emmanuel Butcher MD on 06/04/2020 10:22 AM PDT Approved by: Emmanuel Butcher MD on 06/04/2020 10:22 AM PDT Station ID: [id number]
== END 2020-06-04 23:59 | disposition home or self-care (01) ==
LOC: DI.N 09:23
PROVIDERS: ATTEND Orthopaedic Surgery
DX: Z96.652 Presence of left artificial knee joint (principal)

== ENCOUNTER 2020-06-05 09:59 | Outpatient (CLI) | payer MEDICARE | END 2020-06-05 10:00 | disposition home or self-care (01) | LOC: LAB.S 09:59 | PROVIDERS: ATTEND Family Medicine | DX: Z95.2 Presence of prosthetic heart valve (principal) | CPT/HCPCS: 85610 ==

== ENCOUNTER 2020-06-12 10:06 | Outpatient (CLI) | payer MEDICARE | END 2020-06-12 10:07 | disposition home or self-care (01) | LOC: LAB.S 10:06 | PROVIDERS: ATTEND Family Medicine | DX: Z95.2 Presence of prosthetic heart valve (principal) | CPT/HCPCS: 85610 ==

== ENCOUNTER 2020-06-19 09:29 | Outpatient (CLI) | payer MEDICARE | END 2020-06-19 09:30 | disposition home or self-care (01) | LOC: LAB.S 09:29 | PROVIDERS: ATTEND Family Medicine | DX: Z95.2 Presence of prosthetic heart valve (principal) | CPT/HCPCS: 85610 ==

== ENCOUNTER 2020-07-03 10:11 | Outpatient (CLI) | payer MEDICARE | END 2020-07-03 10:12 | disposition home or self-care (01) | LOC: LAB.S 10:11 | PROVIDERS: ATTEND Family Medicine | DX: Z95.2 Presence of prosthetic heart valve (principal) | CPT/HCPCS: 36416; 85610 ==

== ENCOUNTER 2020-07-15 13:21 | Emergency (ER) | payer MEDICARE ==
[2020-07-15] MEDS ORDERED: IOVERSOL 320 100 ML VIAL IVP ONE ×2 (13:44→14:30)
--- NOTE | 2020-07-15 13:45 | ED Physician Documentation ---
PD HPI ALTERED MENTAL STATUS - Stated complaint Stated Complaint: RT ARM NUMBNESS,SENT BY CLINIC - Chief complaint Chief Complaint: Neuro - History obtained from History obtained from: Patient, Family - Additional information Additional information: 75-year-old gentleman with history of aortic valve replacement done in 2004 on warfarin, sleep apnea using CPAP and cognitive decline had a knee replacement in March here. Postoperatively was on tramadol and oxycodone and that made him confused. Despite not taking any narcotics in the last month the confusion continues and today developed intermittent squeezing right retro-orbital pain and was seen at urgent care. They noted some right hand weakness with abnormal khygps-je-vtky testing and a question of ataxia and he was referred here for f chayitother evaluation and treatment. Of note more recently was diagnosed with a 5 cm a sending aortic aneurysm which is being observed by a cardiothoracic surgeon with serial CTs. Review of Systems Unable to obtain: Confused PD PAST MEDICAL HISTORY - Past Medical History Cardiovascular: Hypertension, Atrial fibrillation, Arrhythmia, Valve disorder Respiratory: Sleep apnea, CPAP use Endocrine/Autoimmune: None GI: None : None HEENT: Chronic vision loss, Chronic hearing loss, Other Psych: None Musculoskeletal: Osteoarthritis Derm: Other - Past Surgical History Past Surgical History: Yes Cardiovascular: Valve replacement HEENT: Cataracts, Other - Present Medications Home Medications: Ambulatory Orders Medication Instructions Recorded Confirmed Cholecalciferol (Vitamin D3) 1 tab PO DAILY 03/24/16 07/15/20 [Vitamin D3] Multivitamin [Multiple Vitamins] 1 tab PO DAILY 03/24/16 07/15/20 C,E,Zinc,Copper 11/Xvctx5n/Lut 1 each PO DAILY 04/16/20 07/15/20 [Ocuvite Adult 50 Plus Softgel] Chlorthalidone 12.5 mg DAILY 07/15/20 07/15/20 Lisinopril [Zestril] 20 mg PO DAILY 07/15/20 07/15/20 Warfarin [Coumadin] 5 mg DAILY 07/15/20 07/15/20 - Allergies Allergies/Adverse Reactions: Allergies Allergy/AdvReac Type Severity Reaction Status Date / Time No Known Drug Allergies Allergy Verified 07/15/20 13:28 - Social History Does the pt smoke?: No Smoking Status: Never smoker Does the pt drink ETOH?: No Does the pt have substance abuse?: No PD ED PE NORMAL - Vitals Vital signs reviewed: Yes - General General: Other (He is alert and oriented to person and place, mediocre for events and completely flounders when asked the month and year.) - HEENT HEENT: PERRL, EOMI - Neck Neck: Supple, no meningeal sign, No bony TTP - Cardiac Cardiac: RRR, Other (Mechanical S2 which is loud) - Respiratory Respiratory: No respiratory distress, Clear bilaterally - Abdomen Abdomen: Soft, Non tender - Back Back: No CVA TTP, No spinal TTP - Derm Derm: Normal color, Warm and dry - Neuro Neuro: programming engineer 2-12 intact, No motor deficit, No sensory deficit, Normal speech, Other (NIH stroke scale is 2 due to lack of orientation. Otherwise everything seems normal and symmetric. Gait is slightly narrow based and waddling but without obvious ataxia.) Eye Opening: Spontaneous Motor: Obeys Commands Verbal: Oriented GCS Score: 15 Results - Vitals Vitals: Vital Signs - 24 hr 07/15/20 07/15/20 13:28 14:07 Heart Rate 68 63 Respiratory 28 H 22 Rate Blood Pressure 125/91 H 122/75 O2 Saturation 98 100 Oxygen O2 Source Room air - EKG (time done) 1333 Rate: Rate (enter#) (67) Rhythm: NSR [place]: Normal Intervals: Prolonged TN, Other (IVCD) QRS: Normal, LVH Ischemia: Q waves (inferior) Compare to prior EKG: Unchanged from prior EKG - Labs Labs: Laboratory Tests 07/15/20 07/15/20 07/15/20 13:37 13:37 13:37 WBC 6.5 RBC 5.00 Hgb 13.6 L Hct 42.0 MCV 84.0 MCH 27.2 MCHC 32.4 RDW 14.9 Plt Count 307 MPV 10.1 Neut # (Auto) 4.6 Lymph # (Auto) 1.0 L [place] # (Auto) 0.7 Eos # (Auto) 0.2 Baso # (Auto) 0.1 Absolute Nucleated RBC 0.00 Nucleated RBC % 0.0 PT 25.2 H INR 2.4 H Sodium 134 L Potassium 3.6 Chloride 96 L Carbon Dioxide 28 Anion Gap 10.0 BUN 31 H Creatinine 1.2 Estimated GFR (MDRD) 59 L Glucose 103 H Calcium 9.4 Magnesium 2.5 Total Bilirubin 1.0 AST 18 ALT 18 Alkaline Phosphatase 61 Total Protein 7.9 Albumin 4.6 Globulin 3.3 Albumin/Globulin Ratio 1.4 PD MEDICAL DECISION MAKING - ED course ED course: 75-year-old male with ongoing confusion since knee replacement in March. No longer on pain medication. This is concerning for dementia, but went to walk-in clinic today with some new intermittent right retro-orbital pain and concern for strokelike symptoms. NIH stroke scale here was negative except for disorientation. CT angiography of the head and neck was basically normal. He was pain-free while in the department. I had a long talk with the patient, his , and their daughter by phone and discussed the findings and need for follow-up. Departure - Departure Disposition: Home, Self Care Clinical Impression: Confusion Headache Qualifiers: Headache chronicity pattern: acute headache Intractability: not intractable Condition: Good Record reviewed to determine appropriate education?: Yes Instructions: ED Cephalgia Unspecified Comments: Your INR today is 2.4 which is good. Other labs look fine and the CAT scan of your head and neck was without any evidence of stroke or blood clots in your head. Return for new or worsening symptoms. Follow-up with your primary care physician, next available appointment. The persistent confusion despite not taking any medications that would cause confusion is concerning for dementia. Discuss this with your physician. Tu INR hoy es de 2,4, lo cual es isbell. Otros laboratorios se christiana nic y la tomografa computarizada de sams fermin y alejandra se realiz sin ninguna evidencia de accidente cerebrovascular o cogulos de patrick en la fermin. Regrese por sntomas nuevos o que empeoran. Alphonso un seguimiento con sams mdico de atencin primaria, prxima shade disponible. La confusin persistente a pesar de no taj ningn medicamento que pueda causar confusin es preocupante para la demencia. Discuta esto con sams mdico.
[2020-07-15 13:50] LABS: BASOPHILS # (AUTO) 0.1 10^3/uL (0.0-0.1); BASOPHILS % (AUTO) 1.1 %; EOSINOPHILS # (AUTO) 0.2 10^3/uL (0.0-0.7); EOSINOPHILS % (AUTO) 2.6 %; HGB - HEMOGLOBIN 13.6 g/dL (14.0-18.0); LYMPHOCYTES % (AUTO) 15.4 %; MEAN CORPUSCULAR HEMOGLOBIN 27.2 pg (27.0-31.0); MEAN CORPUSCULAR HGB CONC 32.4 g/dL (32.0-36.0); MEAN PLATELET VOLUME 10.1 fL (7.4-11.4); MONOCYTES # (AUTO) 0.7 10^3/uL (0.0-1.0); MONOCYTES % (AUTO) 10.4 %; NEUTROPHILS # (AUTO) 4.6 10^3/uL (1.5-6.6); NEUTROPHILS % (AUTO) 70.3 %; PLT - PLATELET COUNT 307 10^3/uL (130-450); RED CELL DISTRIBUTION WIDTH 14.9 % (12.0-15.0); WHITE BLOOD COUNT 6.5 x10^3/uL (4.8-10.8)
[2020-07-15 13:58] LABS: INR 2.4 (0.8-1.2); PT - PROTHROMBIN TIME 25.2 secs (9.9-12.6)
[2020-07-15 14:03] LABS: ALBUMIN 4.6 g/dL (3.2-5.5); ALBUMIN/GLOBULIN RATIO 1.4 (1.0-2.2); CALCIUM 9.4 mg/dL (8.5-10.3); CREATININE 1.2 mg/dL (0.6-1.2); MAGNESIUM 2.5 mg/dL (1.7-2.8); POTASSIUM 3.6 mmol/L (3.5-5.0); TOTAL PROTEIN 7.9 g/dL (6.7-8.2)
--- NOTE | 2020-07-15 14:24 | CT Report ---
PROCEDURE: ANGIO HEAD W/WO INDICATIONS: CVA sx CONTRAST: IV CONTRAST: Optiray 320 ml: 80 PO CONTRAST: *NO PO CONTRAST TECHNIQUE: Precontrast 4.5 mm thick angled axial sections acquired from the foramen magnum to the vertex. Afte r the administration of intravenous contrast, 1 mm thick sections acquired through the [place] of [place] is. Postcontrast 4.5 mm thick sections then re-acquired from the foramen magnum to the vertex. 3-di mensional vqiiljy-ozyqjpcvb-ahbwkkttsb (MIP) and/or volume rendering reformats were acquired of the c entral intracranial vasculature. For radiation dose reduction, the following was used: automated ex posure control, adjustment of mA and/or kV according to patient size. COMPARISON: Prior head CT, 05/19/2020. Correlation is also made with the accompanying neck CT angiogr am, 07/14/2020. FINDINGS: Image quality: Excellent. Anterior circulation: Intracranial internal carotid arteries are normal in size and flow. The flow within the paired anterior cerebral arteries is normal and symmetric. The flow within the middle cer ebral arteries is normal and symmetric. The anterior communicating artery is seen. No sanaz aneurysm s can be seen, although there is an infundibulum seen involving the origin of the right A2 segment, a s on series 13 image 55. Posterior circulation: Visualized portions of the vertebral arteries demonstrate normal caliber, and join to form a normal appearing basilar artery. Flow within the posterior cerebral arteries is norm al and symmetric. No aneurysms are seen. CSF spaces: Ventricles are normal in size and shape. Basal cisterns are patent. No extra-axial flu id collections. Brain: No midline shift. No intracranial bleeds or masses. [place]-white matter interface appears int act. Skull and face: Calvarium and facial bones appear intact, without suspicious lesions. Sinuses: Visualized sinuses and mastoids are clear. IMPRESSION: No significant intracranial abnormality is seen. No intracranial hemorrhage is seen. No significant intracranial arterial abnormalities are seen. Reviewed by: Giuliano Patel MD on 07/15/2020 1:22 PM KDOI Approved by: Giuliano Patel MD on 07/15/2020 1:22 PM KODI Station ID: [id number]
--- NOTE | 2020-07-15 14:26 | CT Report ---
PROCEDURE: ANGIO NECK W INDICATIONS: CVA sx CONTRAST: IV CONTRAST: Optiray 320 ml: 80 PO CONTRAST: *NO PO CONTRAST TECHNIQUE: After the administration of intravenous contrast, 1.5 mm axial sections acquired from the aortic arch to the [place] of [place]. Coronal 3-D maximum intensity projection (MIP) and/or volume rendering ref ormats were then performed. For radiation dose reduction, the following was used: automated exposur e control, adjustment of mA and/or kV according to patient size. COMPARISON: Correlation is made with the accompanying head CT angiogram, 07/15/2020. FINDINGS: Image quality: Limited by artifact from collateral circulation. Carotid system: The great vessels demonstrate a conventional anatomy as they arise from the aortic a rch. The origins of the common carotid arteries appear patent. The common carotid arteries demonstr ate normal calibers and courses. The bifurcation regions appear normal bilaterally. The internal ca rotid arteries demonstrate normal caliber and course. Posterior circulation: The origins of the vertebral arteries appear patent. The more superior porti ons of the vertebral arteries demonstrate normal course and caliber. They join to form a normal appe aring basilar artery. Soft tissues: Narrowing of the left brachycephalic vein can be seen along the right side, as on seri es 2 image 20. There is associated collateral venous circulation. Visualized neck soft tissues demonstrate no suspicious abnormalities. The thyroid is normal in size and there are no incidental findings. Bones: No suspicious bony lesions. Visualized cervical spine appears normally aligned. Moderate deg enerative changes are seen, which are worst involving the lower cervical spine at the C6-C7 level. S ternotomy changes are noted. IMPRESSION: No hemodynamically significant stenosis can be seen within the arteries of the neck. 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 Sternotomy wires noted. The estimate of stenosis included in the report of the imaging study was calculated using the NASCET method Reviewed by: Giuliano Patel MD on 07/15/2020 1:25 PM AKDT Approved by: Giuliano Patel MD on 07/15/2020 1:25 PM AKDT Station ID: [id number]
[2020-07-15 15:24] VITALS: BP 109/77
== END 2020-07-15 15:24 | disposition home or self-care (01) ==
LOC: ED 13:21
DX: R41.0 Disorientation, unspecified (principal); R51.9 Headache, unspecified; I44.0 Atrioventricular block, first degree; I10 Essential (primary) hypertension; Z95.828 Presence of other vascular implants and grafts; Z79.01 Long term (current) use of anticoagulants
CPT/HCPCS: 36415; 70496; 70498; 80053; 83735; 85025; 85610; 93005; 99281; 99284; Q9967

== ENCOUNTER 2020-08-03 09:22 | Outpatient (CLI) | payer MEDICARE | END 2020-08-03 09:23 | disposition home or self-care (01) | LOC: LAB.S 09:22 | PROVIDERS: ATTEND Family Medicine | DX: Z95.2 Presence of prosthetic heart valve (principal) | CPT/HCPCS: 36416; 85610 ==

== ENCOUNTER 2020-08-07 09:30 | Outpatient (CLI) | payer MEDICARE | END 2020-08-07 09:31 | disposition home or self-care (01) | LOC: LAB.S 09:30 | PROVIDERS: ATTEND Family Medicine | DX: Z95.2 Presence of prosthetic heart valve (principal) | CPT/HCPCS: 36416; 85610 ==

== ENCOUNTER 2020-08-14 09:12 | Outpatient (CLI) | payer MEDICARE | END 2020-08-14 09:13 | disposition home or self-care (01) | LOC: LAB.S 09:12 | PROVIDERS: ATTEND Family Medicine | DX: Z95.2 Presence of prosthetic heart valve (principal) | CPT/HCPCS: 36416; 85610 ==

== ENCOUNTER 2020-08-24 08:30 | Outpatient (CLI) | payer MEDICARE | END 2020-08-24 08:31 | disposition home or self-care (01) | LOC: LAB.S 08:30 | PROVIDERS: ATTEND Family Medicine | DX: Z95.2 Presence of prosthetic heart valve (principal) | CPT/HCPCS: 36416; 85610 ==

== ENCOUNTER 2020-09-04 08:58 | Outpatient (CLI) | payer MEDICARE | END 2020-09-04 08:59 | disposition home or self-care (01) | LOC: LAB.S 08:58 | PROVIDERS: ATTEND Family Medicine | DX: Z95.2 Presence of prosthetic heart valve (principal) | CPT/HCPCS: 36416; 85610 ==

== ENCOUNTER 2020-09-18 10:17 | Outpatient (CLI) | payer MEDICARE | END 2020-09-18 10:18 | disposition home or self-care (01) | LOC: LAB.S 10:17 | PROVIDERS: ATTEND Family Medicine | DX: Z95.2 Presence of prosthetic heart valve (principal) | CPT/HCPCS: 36416; 85610 ==

== ENCOUNTER 2020-09-25 00:14 | Emergency (ER) | payer MEDICARE ==
[2020-09-25 00:22] VITALS: BP 132/77
[2020-09-25] MEDS ORDERED: BACITRACIN ZINC OINT 1 PACKET TOP STA (00:39)
[2020-09-25] MEDS ORDERED: OXYMETAZOLINE HCL 100 SPRAYS BOTTLE NAS STA (00:39)
[2020-09-25] MEDS ORDERED: TRANEXAMIC ACID 1,000 MG/10 ML VIAL NAS STA (00:39)
[2020-09-25] MEDS ORDERED: SILVER NITRATE APPLICATOR TOP STA (00:52)
--- NOTE | 2020-09-25 01:34 | ED Physician Documentation ---
History of Present Illness - Stated complaint Stated Complaint: NOSE BLEED - Chief complaint Chief Complaint: Heent - History obtained from History obtained from: Patient, Family () - Additonal information Additional information: 75-year-old man on Coumadin with last INR 2.73 weeks ago presents with epistaxis spontaneously occurring this evening in the left nare. It resolved with direct pressure and afrin in the emergency department. No other complaints Review of Systems Nose: reports: Epistaxis PD PAST MEDICAL HISTORY - Past Medical History Cardiovascular: Hypertension, Atrial fibrillation, Arrhythmia, Valve disorder Respiratory: Sleep apnea, CPAP use Endocrine/Autoimmune: None GI: None : None HEENT: Chronic vision loss, Chronic hearing loss, Other Psych: None Musculoskeletal: Osteoarthritis Derm: Other - Past Surgical History Past Surgical History: Yes Cardiovascular: Valve replacement HEENT: Cataracts, Other - Present Medications Home Medications: Ambulatory Orders Medication Instructions Recorded Confirmed Cholecalciferol (Vitamin D3) 1 tab PO DAILY 03/24/16 07/15/20 [Vitamin D3] Multivitamin [Multiple Vitamins] 1 tab PO DAILY 03/24/16 07/15/20 C,E,Zinc,Copper 11/Kwvqa0c/Lut 1 each PO DAILY 04/16/20 07/15/20 [Ocuvite Adult 50 Plus Softgel] Chlorthalidone 12.5 mg ORAL DAILY 07/15/20 07/15/20 Lisinopril [Zestril] 20 mg PO DAILY 07/15/20 07/15/20 Warfarin [Coumadin] 5 mg DAILY 07/15/20 07/15/20 Warfarin [Coumadin] 7.5 mg PO 1400 09/25/20 09/25/20 - Allergies Allergies/Adverse Reactions: Allergies Allergy/AdvReac Type Severity Reaction Status Date / Time No Known Drug Allergies Allergy Verified 09/25/20 00:17 - Social History Does the pt smoke?: No Smoking Status: Never smoker Does the pt drink ETOH?: No Does the pt have substance abuse?: No PD ED PE NORMAL - Vitals Vital signs reviewed: Yes - General General: Alert and oriented X 3, No acute distress, Well developed/nourished - HEENT HEENT: Atraumatic, PERRL, EOMI, Moist mucous membranes, Pharynx benign, Other (BL nares without NSH or source of bleeding) Results - Vitals Vitals: Vital Signs - 24 hr 09/25/20 00:18 Temperature 36.5 C Heart Rate 74 Respiratory 16 Rate Blood Pressure 132/77 H O2 Saturation 97 Oxygen O2 Source Room air PD MEDICAL DECISION MAKING - ED course ED course: Patient presented with spontaneous epistaxis. Extensive exploration of the naris revealed no source of bleeding for silver nitrate cautery. Education given about epistaxis care. Return precautions given. Upon discharge, his mentioned concerns about a chronic cough he has at nighttime. Patient denies hemoptysis, shortness of breath, fever and states that he has a chronic cough at nighttime. Since he is asymptomatic at present I advised patient to follow-up with his primary doctor in regards to these symptoms. Return precautions given. Departure - Departure Disposition: 01 Home, Self Care Clinical Impression: Epistaxis Condition: Good Instructions: Nosebleed Comments: You were seen in the emergency department for nosebleed that stopped after direct pressure and Afrin nasal spray. Please follow-up with your primary doctor. Return to the emergency department if you have any new or worsening symptoms or other concerns.
== END 2020-09-25 01:51 | disposition home or self-care (01) ==
LOC: ED 00:14
DX: R04.0 Epistaxis (principal); Z95.2 Presence of prosthetic heart valve
CPT/HCPCS: 36416; 85610; 99282; A9270

== ENCOUNTER 2020-09-25 12:18 | Outpatient (CLI) | payer MEDICARE | END 2020-09-25 12:19 | disposition home or self-care (01) | LOC: LAB.S 12:18 | PROVIDERS: ATTEND Family Medicine | DX: Z95.2 Presence of prosthetic heart valve (principal) | CPT/HCPCS: 36416; 85610 ==

== ENCOUNTER 2020-10-09 10:11 | Outpatient (CLI) | payer MEDICARE | END 2020-10-09 10:12 | disposition home or self-care (01) | LOC: LAB.S 10:11 | PROVIDERS: ATTEND Family Medicine | DX: Z95.2 Presence of prosthetic heart valve (principal) | CPT/HCPCS: 85610 ==

== ENCOUNTER 2020-11-02 09:10 | Outpatient (CLI) | payer MEDICARE | END 2020-11-02 09:11 | disposition home or self-care (01) | LOC: LAB.S 09:10 | PROVIDERS: ATTEND Family Medicine | DX: Z95.2 Presence of prosthetic heart valve (principal) | CPT/HCPCS: 36416; 85610 ==

== ENCOUNTER 2020-11-05 10:48 | Outpatient (CLI) | payer MEDICARE | END 2020-11-05 10:49 | disposition home or self-care (01) | LOC: LAB.S 10:48 | PROVIDERS: ATTEND Family Medicine | DX: Z95.2 Presence of prosthetic heart valve (principal) | CPT/HCPCS: 36416; 85610 ==

== ENCOUNTER 2020-11-10 21:40 | Emergency (ER) | payer MEDICARE ==
[2020-11-10 22:19] LABS: BILIRUBIN,URINE NEGATIVE (NEGATIVE); GLUCOSE, URINE (UA) NEGATIVE (NEGATIVE); KETONES,URINE (UA) NEGATIVE (NEGATIVE); LEUKOCYTE ESTERASE, URINE NEGATIVE (NEGATIVE); NITRITE,URINE NEGATIVE (NEGATIVE); OCCULT BLOOD,URINE NEGATIVE (NEGATIVE); PROTEIN,URINE NEGATIVE (NEGATIVE); UROBILINOGEN,URINE 0.2 (NORMAL) E.U./dL (NORMAL)
[2020-11-10 22:20] LABS: CLARITY,URINE CLEAR (CLEAR)
[2020-11-10] MEDS ORDERED: LOSARTAN 50 MG TABLET PO STA (22:26)
--- NOTE | 2020-11-10 22:27 | ED Physician Documentation ---
History of Present Illness - Stated complaint Stated Complaint: IRREGULAR BLOOD PRESSURE - Chief complaint Chief Complaint: General - History obtained from History obtained from: Patient - History of Present Illness Timing: Today - Additonal information Additional information: 75-year-old male with a history of hypertension and aortic valve replacement with an aortic aneurysm watch his blood pressure very closely and he has noted today that his blood pressure is elevated. He is noted a little bit of a headache without other symptoms. His brings in his medication list he is apparently reduced his chlorthalidone and losartan about 2 weeks ago cut both doses in half. Review of Systems Constitutional: denies: Fever Eyes: denies: Decreased vision Ears: denies: Ear pain Nose: denies: Congestion Throat: denies: Sore throat Cardiac: denies: Chest pain / pressure, Palpitations Respiratory: denies: Dyspnea, Cough GI: denies: Abdominal Pain, Nausea, Vomiting : denies: Dysuria, Frequency Skin: denies: Rash Musculoskeletal: denies: Neck pain, Back pain, Extremity pain Neurologic: reports: Headache. denies: Generalized weakness, Focal weakness, Numbness, Head injury, LOC PD PAST MEDICAL HISTORY - Past Medical History Past Medical History: Yes Cardiovascular: Hypertension, Atrial fibrillation, Arrhythmia, Valve disorder Respiratory: Sleep apnea, CPAP use Endocrine/Autoimmune: None GI: None : None HEENT: Chronic vision loss, Chronic hearing loss, Other Psych: None Musculoskeletal: Osteoarthritis Derm: Other - Past Surgical History Past Surgical History: Yes Cardiovascular: Valve replacement HEENT: Cataracts, Other - Present Medications Home Medications: Ambulatory Orders Medication Instructions Recorded Confirmed Cholecalciferol (Vitamin D3) 1 tab PO DAILY 03/24/16 11/10/20 [Vitamin D3] Multivitamin [Multiple Vitamins] 1 tab PO DAILY 03/24/16 11/10/20 C,E,Zinc,Copper 11/Oogaw0f/Lut 1 each PO DAILY 04/16/20 11/10/20 [Ocuvite Adult 50 Plus Softgel] Chlorthalidone 12.5 mg ORAL DAILY 07/15/20 11/10/20 Lisinopril [Zestril] 20 mg PO DAILY 07/15/20 11/10/20 Warfarin [Coumadin] 5 mg DAILY 07/15/20 11/10/20 Warfarin [Coumadin] 7.5 mg PO 1400 09/25/20 11/10/20 - Allergies Allergies/Adverse Reactions: Allergies Allergy/AdvReac Type Severity Reaction Status Date / Time No Known Drug Allergies Allergy Verified 11/10/20 22:06 - Social History Does the pt smoke?: No Smoking Status: Never smoker Does the pt drink ETOH?: No Does the pt have substance abuse?: No PD ED PE NORMAL - Vitals Vital signs reviewed: Yes (hypertensive ) - General General: Alert and oriented X 3, No acute distress, Well developed/nourished - HEENT HEENT: Atraumatic, PERRL, EOMI - Neck Neck: Supple, no meningeal sign, No bony TTP - Cardiac Cardiac: RRR, Other (end systolic click) - Respiratory Respiratory: No respiratory distress - Abdomen Abdomen: Soft, Non tender - Back Back: No CVA TTP, No spinal TTP - Derm Derm: Normal color, Warm and dry, No rash - Extremities Extremities: No deformity, No edema - Neuro Neuro: Alert and oriented X 3, drill runner 2-12 intact, No motor deficit, No sensory deficit, Normal speech Eye Opening: Spontaneous Motor: Obeys Commands Verbal: Oriented GCS Score: 15 - Psych Psych: Normal mood, Normal affect Results - Vitals Vitals: Vital Signs - 24 hr 11/10/20 11/10/20 11/10/20 21:59 22:06 22:26 Temperature 36.4 C L 36.4 C L Heart Rate 62 62 63 Respiratory 16 16 22 Rate Blood Pressure 146/81 H 146/81 H 154/81 H O2 Saturation 98 98 98 11/10/20 11/10/20 22:47 23:03 Temperature Heart Rate 60 61 Respiratory 19 21 Rate Blood Pressure 131/82 H 128/79 O2 Saturation 98 97 Oxygen O2 Source Room air - EKG (time done) 2209 Rate: Rate (enter#) (65) Rhythm: NSR Intervals: Prolonged VT, Wide QRS Ischemia: Q waves Compare to prior EKG: Unchanged from prior EKG (SPT 07-15-20 no changes ) Computer interpretation: Agree with computer - Labs Labs: Laboratory Tests 11/10/20 11/10/20 11/10/20 21:58 22:35 22:35 WBC 5.1 RBC 4.14 L Hgb 11.9 L Hct 36.8 L MCV 88.9 MCH 28.7 MCHC 32.3 RDW 13.8 Plt Count 286 MPV 10.3 Neut # (Auto) 3.5 Lymph # (Auto) 1.0 L Forrest # (Auto) 0.5 Eos # (Auto) 0.1 Baso # (Auto) 0.1 Absolute Nucleated RBC 0.00 Nucleated RBC % 0.0 PT 34.1 H INR 3.1 H Sodium Potassium Chloride Carbon Dioxide Anion Gap BUN Creatinine Estimated GFR (MDRD) Glucose Calcium Total Bilirubin AST ALT Alkaline Phosphatase Total Protein Albumin Globulin Albumin/Globulin Ratio Lipase Urine Color YELLOW Urine Clarity CLEAR Urine pH 6.0 Ur Specific [place] 1.010 Urine Protein NEGATIVE Urine Glucose (UA) NEGATIVE Urine Ketones NEGATIVE Urine Occult Blood NEGATIVE Urine Nitrite NEGATIVE Urine Bilirubin NEGATIVE Urine Urobilinogen 0.2 (NORMAL) Ur Leukocyte Esterase NEGATIVE Ur Microscopic Review NOT INDICATED Urine Culture Comments NOT INDICATED 11/10/20 22:35 WBC RBC Hgb Hct MCV MCH MCHC RDW Plt Count MPV Neut # (Auto) Lymph # (Auto) Forrest # (Auto) Eos # (Auto) Baso # (Auto) Absolute Nucleated RBC Nucleated RBC % PT INR Sodium 138 Potassium 3.6 Chloride 101 Carbon Dioxide 26 Anion Gap 11.0 BUN 24 H Creatinine 0.8 Estimated GFR (MDRD) 95 Glucose 104 H Calcium 9.3 Total Bilirubin 0.9 AST 20 ALT 19 Alkaline Phosphatase 51 Total Protein 7.5 Albumin 4.1 Globulin 3.4 Albumin/Globulin Ratio 1.2 Lipase 32 Urine Color Urine Clarity Urine pH Ur Specific [place] Urine Protein Urine Glucose (UA) Urine Ketones Urine Occult Blood Urine Nitrite Urine Bilirubin Urine Urobilinogen Ur Leukocyte Esterase Ur Microscopic Review Urine Culture Comments Procedures - Bedside sono Bedside sono by EMP: With his bedside ultrasound the heart is briefly imaged without sign of pericardial effusion. - IVC sono (time) 2229 Bedside IVC sono: IVC measures (cm) (1.43), Euvolemia PD MEDICAL DECISION MAKING - ED course Complexity details: reviewed old records, reviewed results, re-evaluated patient, considered differential, d/w patient, d/w family ED course: 75-year-old male with history of aortic aneurysm ascending watch his blood pressure very closely and today has had elevated numbers. He has not had withdrawal from other medications he has not had withdrawal from alcohol or narcotic. He has not had excessive salt load. He has been taking his medications regularly but he has had a reduction in his dose of 2 of his blood pressure medications were cut in half a little over 2 weeks ago. We evaluated the patient from the perspective of the risk of his aneurysm and I have administered his losartan at his prior full dose. I did not find evidence of pericardial effusion with bedside ultrasound which is reassuring for concern of active dissection. Departure - Departure Disposition: 01 Home, Self Care Clinical Impression: Hypertension Qualifiers: Hypertension type: unspecified Qualified Code(s): I10 - Essential (primary) hypertension Condition: Stable Instructions: ED HTN Established Follow-Up: Nadiya Parnell ARNP [Primary Care Provider] - Comments: Today we have found that your blood pressure was elevated and my recommendation is to restart your losartan at the full dose of 25 mg daily. Follow-up with your primary care provider for blood pressure recheck this week.
[2020-11-10 22:40] LABS: BASOPHILS # (AUTO) 0.1 10^3/uL (0.0-0.1); EOSINOPHILS # (AUTO) 0.1 10^3/uL (0.0-0.7); EOSINOPHILS % (AUTO) 1.8 %; HCT - HEMATOCRIT 36.8 % (42.0-52.0); HGB - HEMOGLOBIN 11.9 g/dL (14.0-18.0); LYMPHOCYTES % (AUTO) 19.8 %; MEAN CORPUSCULAR HEMOGLOBIN 28.7 pg (27.0-31.0); MEAN CORPUSCULAR HGB CONC 32.3 g/dL (32.0-36.0); MEAN CORPUSCULAR VOLUME 88.9 fL (80.0-94.0); MEAN PLATELET VOLUME 10.3 fL (7.4-11.4); MONOCYTES # (AUTO) 0.5 10^3/uL (0.0-1.0); MONOCYTES % (AUTO) 10.1 %; NEUTROPHILS # (AUTO) 3.5 10^3/uL (1.5-6.6); NEUTROPHILS % (AUTO) 67.1 %; PLT - PLATELET COUNT 286 10^3/uL (130-450); RED BLOOD COUNT 4.14 10^6/uL (4.70-6.10); RED CELL DISTRIBUTION WIDTH 13.8 % (12.0-15.0); WHITE BLOOD COUNT 5.1 x10^3/uL (4.8-10.8)
[2020-11-10 22:46] LABS: INR 3.1 (0.8-1.2); PT - PROTHROMBIN TIME 34.1 secs (9.9-12.6)
[2020-11-10 22:55] LABS: ALBUMIN 4.1 g/dL (3.2-5.5); ALBUMIN/GLOBULIN RATIO 1.2 (1.0-2.2); BILIRUBIN,TOTAL 0.9 mg/dL (0.2-1.0); CALCIUM 9.3 mg/dL (8.5-10.3); CREATININE 0.8 mg/dL (0.6-1.2); POTASSIUM 3.6 mmol/L (3.5-5.0); TOTAL PROTEIN 7.5 g/dL (6.7-8.2)
[2020-11-11 00:13] VITALS: BP 128/78
--- NOTE | 2020-11-11 12:50 | XRAY Report ---
PROCEDURE: Chest 1 View X-Ray INDICATIONS: chest pain TECHNIQUE: One view of the chest was acquired. COMPARISON: Chest x-ray 04/21/2020 FINDINGS: Surgical changes and devices: Sternal wires. Lungs and pleura: No pleural effusions or pneumothorax. Left basilar scarring versus atelectasis. Mediastinum: Mediastinal contours appear normal. Heart size is normal. Bones and chest wall: No suspicious bony lesions. Overlying soft tissues appear unremarkable. IMPRESSION: No acute pulmonary process. The above findings are concordant with preliminary report.. Reviewed by: Toya Hanson MD on 11/11/2020 12:49 PM PDT Approved by: Toya Hanson MD on 11/11/2020 12:49 PM PDT Station ID: [id number]
== END 2020-11-11 00:12 | disposition home or self-care (01) ==
LOC: ED 21:40
DX: I10 Essential (primary) hypertension (principal); I48.91 Unspecified atrial fibrillation; Z79.01 Long term (current) use of anticoagulants
CPT/HCPCS: 36415; 71045; 80053; 81003; 83690; 85025; 85610; 93005; 99283; 99284; A9270; 81001; 87086

== ENCOUNTER 2020-11-13 10:40 | Outpatient (CLI) | payer MEDICARE | END 2020-11-13 10:41 | disposition home or self-care (01) | LOC: LAB.S 10:40 | PROVIDERS: ATTEND Family Medicine | DX: Z95.2 Presence of prosthetic heart valve (principal) | CPT/HCPCS: 36416; 85610 ==

== ENCOUNTER 2020-11-16 10:32 | Outpatient (CLI) | payer MEDICARE | END 2020-11-16 10:33 | disposition home or self-care (01) | LOC: LAB.S 10:32 | PROVIDERS: ATTEND Family Medicine | DX: Z95.2 Presence of prosthetic heart valve (principal) | CPT/HCPCS: 36416; 85610 ==

== ENCOUNTER 2020-11-30 10:20 | Outpatient (CLI) | payer MEDICARE | END 2020-11-30 10:21 | disposition home or self-care (01) | LOC: LAB.S 10:20 | PROVIDERS: ATTEND Family Medicine | DX: Z95.2 Presence of prosthetic heart valve (principal) | CPT/HCPCS: 36416; 85610 ==

== ENCOUNTER 2020-12-11 14:25 | Outpatient (CLI) | payer MEDICARE | END 2020-12-11 14:26 | disposition home or self-care (01) | LOC: LAB.S 14:25 | PROVIDERS: ATTEND Family Medicine | DX: Z95.2 Presence of prosthetic heart valve (principal) | CPT/HCPCS: 36416; 85610 ==

== ENCOUNTER 2020-12-29 23:58 | Emergency (ER) | payer MEDICARE ==
--- NOTE | 2020-12-30 00:58 | ED Physician Documentation ---
History of Present Illness - Stated complaint Stated Complaint: HIGH BP - Chief complaint Chief Complaint: Neuro - History obtained from History obtained from: Patient - History of Present Illness Timing: Today Pain level now: 3 Improved by: nothing Worsened by: no exacerbating factors - Additonal information Additional information: chief complaint is concern he has regarding persistent blood pressure readings all day today that have been a little high, per patient. he cannot recall specific numbers regarding his blood pressures. he has had episodic mild global headache although this resolved TROUBLE TRACER. he received an influenza vaccination yesterday. Review of Systems Eyes: reports: Reviewed and negative Cardiac: reports: Reviewed and negative Respiratory: reports: Reviewed and negative GI: reports: Reviewed and negative Musculoskeletal: reports: Reviewed and negative Neurologic: reports: Headache (resolved TROUBLE TRACER). denies: Generalized weakness, Focal weakness, Numbness PD PAST MEDICAL HISTORY - Past Medical History Past Medical History: Yes Cardiovascular: Hypertension, Atrial fibrillation, Arrhythmia, Valve disorder, Other Respiratory: Sleep apnea, CPAP use Endocrine/Autoimmune: None GI: None : None HEENT: Chronic vision loss, Chronic hearing loss, Other Psych: None Musculoskeletal: Osteoarthritis Derm: Other Other Past Medical History: Aortic Aneurysm - Past Surgical History Past Surgical History: Yes Cardiovascular: Valve replacement HEENT: Cataracts, Other - Present Medications Home Medications: Ambulatory Orders Medication Instructions Recorded Confirmed Cholecalciferol (Vitamin D3) 1 tab PO DAILY 03/24/16 12/30/20 [Vitamin D3] Multivitamin [Multiple Vitamins] 1 tab PO DAILY 03/24/16 11/10/20 C,E,Zinc,Copper 11/Falpc7r/Lut 1 each PO DAILY 04/16/20 11/10/20 [Ocuvite Adult 50 Plus Softgel] Chlorthalidone 25 mg ORAL DAILY 07/15/20 12/30/20 Losartan [Cozaar] 50 mg PO DAILY 12/30/20 12/30/20 Warfarin Sodium [Jantoven] 5 mg PO DAILY 12/30/20 12/30/20 - Allergies Allergies/Adverse Reactions: Allergies Allergy/AdvReac Type Severity Reaction Status Date / Time No Known Drug Allergies Allergy Verified 12/30/20 00:18 - Social History Does the pt smoke?: No Smoking Status: Never smoker Does the pt drink ETOH?: No Does the pt have substance abuse?: No - Immunizations Immunizations are current?: Yes PD ED PE NORMAL - Vitals Vital signs reviewed: Yes - General General: Alert and oriented X 3, No acute distress, Well developed/nourished - Neck Neck: Supple, no meningeal sign - Cardiac Cardiac: RRR, No murmur, Other (S2 click c/w mechanical valve) - Respiratory Respiratory: No respiratory distress, Clear bilaterally - Abdomen Abdomen: Soft, Non tender - Derm Derm: Normal color, Warm and dry - Extremities Extremities: No edema - Neuro Neuro: Alert and oriented X 3 Results - Vitals Vitals: Oxygen O2 Source Room air PD MEDICAL DECISION MAKING - ED course Complexity details: re-evaluated patient, considered differential, d/w patient ED course: patients chief concern is high blood pressures earlier tonight with generalized headache. he is normotensive (borderline DBP) in ED and headache resolved TROUBLE TRACER. Blood pressures in ED are mostly 130s / 80s, with 112/73 just prior to discharge. no emergent testing indicated at this time. Departure - Departure Disposition: 01 Home, Self Care Clinical Impression: Headache Qualifiers: Headache type: unspecified Headache chronicity pattern: acute headache Intractability: not intractable Qualified Code(s): R51.9 - Headache, unspecified Condition: Good Instructions: ED Cephalgia Unspecified Follow-Up: Nadiya Parnell ARNP [Primary Care Provider] - Discharge Date/Time: 12/30/20 02:10
[2020-12-30 02:03] VITALS: BP 125/78
== END 2020-12-30 02:10 | disposition home or self-care (01) ==
LOC: ED 23:58
DX: R51.9 Headache, unspecified (principal); I10 Essential (primary) hypertension; I48.91 Unspecified atrial fibrillation; Z79.01 Long term (current) use of anticoagulants
CPT/HCPCS: 99281; 99282

== ENCOUNTER 2021-01-01 10:50 | Outpatient (CLI) | payer MEDICARE | END 2021-01-01 10:51 | disposition home or self-care (01) | LOC: LAB.S 10:50 | PROVIDERS: ATTEND Family Medicine | DX: Z95.2 Presence of prosthetic heart valve (principal) | CPT/HCPCS: 36416; 85610 ==

== ENCOUNTER 2021-01-08 09:45 | Outpatient (CLI) | payer MEDICARE | END 2021-01-08 09:46 | disposition home or self-care (01) | LOC: LAB.S 09:45 | PROVIDERS: ATTEND Family Medicine | DX: Z95.2 Presence of prosthetic heart valve (principal) | CPT/HCPCS: 36416; 85610 ==

== ENCOUNTER 2021-01-15 08:00 | Outpatient (CLI) | payer MEDICARE | END 2021-01-15 23:59 | disposition home or self-care (01) | LOC: LAB.S 08:00 | PROVIDERS: ATTEND Family Medicine | DX: Z95.2 Presence of prosthetic heart valve (principal) | CPT/HCPCS: 36416; 85610 ==

== ENCOUNTER 2021-01-22 11:04 | Outpatient (CLI) | payer MEDICARE | END 2021-01-22 11:05 | disposition home or self-care (01) | LOC: LAB.S 11:04 | PROVIDERS: ATTEND Family Medicine | DX: Z95.2 Presence of prosthetic heart valve (principal) | CPT/HCPCS: 36416; 85610 ==

== ENCOUNTER 2021-01-26 12:04 | Outpatient (CLI) | payer MEDICARE | END 2021-01-26 12:05 | disposition home or self-care (01) | LOC: LAB.S 12:04 | PROVIDERS: ATTEND Family Medicine | DX: Z95.2 Presence of prosthetic heart valve (principal) | CPT/HCPCS: 36416; 85610 ==

== ENCOUNTER 2021-02-12 10:45 | Outpatient (CLI) | payer MEDICARE | END 2021-02-12 10:46 | disposition home or self-care (01) | LOC: LAB.S 10:45 | PROVIDERS: ATTEND Family Medicine | DX: Z95.2 Presence of prosthetic heart valve (principal) | CPT/HCPCS: 36416; 85610 ==

== ENCOUNTER 2021-03-06 10:48 | Outpatient (CLI) | payer MEDICARE | END 2021-03-06 10:49 | disposition home or self-care (01) | LOC: LAB.S 10:48 | PROVIDERS: ATTEND Family Medicine | DX: Z95.2 Presence of prosthetic heart valve (principal) | CPT/HCPCS: 36416; 85610 ==

== ENCOUNTER 2021-03-08 08:00 | Outpatient (CLI) | payer MEDICARE | END 2021-03-08 23:59 | disposition home or self-care (01) | LOC: LAB.N 08:00 | PROVIDERS: ATTEND Family Medicine | DX: I48.0 Paroxysmal atrial fibrillation (principal); Z95.2 Presence of prosthetic heart valve; Z79.01 Long term (current) use of anticoagulants ==

== ENCOUNTER 2021-03-26 08:50 | Outpatient (CLI) | payer MEDICARE | END 2021-03-26 08:51 | disposition home or self-care (01) | LOC: LAB.S 08:50 | PROVIDERS: ATTEND Family Medicine | DX: Z95.2 Presence of prosthetic heart valve (principal) | CPT/HCPCS: 36416; 85610 ==

== ENCOUNTER 2021-04-02 11:00 | Outpatient (CLI) | payer MEDICARE | END 2021-04-02 11:01 | disposition home or self-care (01) | LOC: LAB.S 11:00 | PROVIDERS: ATTEND Family Medicine | DX: Z95.2 Presence of prosthetic heart valve (principal) | CPT/HCPCS: 36416; 85610 ==

== ENCOUNTER 2021-04-07 08:00 | Outpatient (CLI) | payer MEDICARE ==
--- NOTE | 2021-04-07 14:29 | XRAY Report ---
PROCEDURE: Chest 2 View X-Ray INDICATIONS: COUGH TECHNIQUE: 2 view(s) of the chest. COMPARISON: 11/10/2020. FINDINGS: Surgical changes and devices: Median sternotomy wires are seen. Lungs and pleura: No pleural effusions or pneumothorax. Lungs are clear. Mediastinum: Tortuous thoracic aorta is noted. Heart size is normal. Bones and chest wall: No suspicious bony abnormalities. Soft tissues appear unremarkable. IMPRESSION: No acute cardiopulmonary pathology. Reviewed by: Emmanuel Butcher MD on 04/07/2021 2:28 PM PST Approved by: Emmanuel Butcher MD on 04/07/2021 2:28 PM PST Station ID: [id number]
[2021-04-07 20:54] LABS: HCT - HEMATOCRIT 38.6 % (42.0-52.0); HGB - HEMOGLOBIN 12.1 g/dL (14.0-18.0); MEAN CORPUSCULAR HEMOGLOBIN 26.1 pg (27.0-31.0); MEAN CORPUSCULAR HGB CONC 31.3 g/dL (32.0-36.0); MEAN CORPUSCULAR VOLUME 83.4 fL (80.0-94.0); MEAN PLATELET VOLUME 10.4 fL (7.4-11.4); RED BLOOD COUNT 4.63 10^6/uL (4.70-6.10); WHITE BLOOD COUNT 5.4 x10^3/uL (4.8-10.8)
[2021-04-07 21:10] LABS: CALCIUM 9.2 mg/dL (8.5-10.3); CREATININE 0.8 mg/dL (0.6-1.2); POTASSIUM 3.3 mmol/L (3.5-5.0)
== END 2021-04-07 23:59 | disposition home or self-care (01) ==
LOC: DI.S 08:00
PROVIDERS: ATTEND Emergency Medicine
DX: R05.9 Cough, unspecified (principal)
CPT/HCPCS: 36415; 80048; 83880; 85027

== ENCOUNTER 2021-04-08 09:30 | Outpatient (CLI) | payer MEDICARE | END 2021-04-08 23:59 | disposition home or self-care (01) | LOC: LAB.S 09:30 | PROVIDERS: ATTEND Emergency Medicine | DX: R05.9 Cough, unspecified (principal); Z20.822 Contact with and (suspected) exposure to COVID-19 ==

== ENCOUNTER 2021-04-16 09:44 | Outpatient (CLI) | payer MEDICARE | END 2021-04-16 09:45 | disposition home or self-care (01) | LOC: LAB.S 09:44 | PROVIDERS: ATTEND Family Medicine | DX: Z95.2 Presence of prosthetic heart valve (principal) | CPT/HCPCS: 36416; 85610 ==

== ENCOUNTER 2021-04-23 08:49 | Outpatient (CLI) | payer MEDICARE | END 2021-04-23 08:50 | disposition home or self-care (01) | LOC: LAB.S 08:49 | PROVIDERS: ATTEND Family Medicine | DX: Z95.2 Presence of prosthetic heart valve (principal) | CPT/HCPCS: 36416; 85610 ==

== ENCOUNTER 2021-04-30 09:49 | Outpatient (CLI) | payer MEDICARE | END 2021-04-30 09:50 | disposition home or self-care (01) | LOC: LAB.S 09:49 | PROVIDERS: ATTEND Family Medicine | DX: Z95.2 Presence of prosthetic heart valve (principal) | CPT/HCPCS: 36416; 85610 ==

== ENCOUNTER 2021-05-03 09:00 | Outpatient (CLI) | payer MEDICARE ==
--- NOTE | 2021-05-03 10:18 | XRAY Report ---
PROCEDURE: Knee 4 View LT INDICATIONS: LEFT TKA F/U TECHNIQUE: 4 views of the left knee(s) were acquired. COMPARISON: 06/04/2020 FINDINGS: Bones: There are stable postsurgical changes from prior left total knee arthroplasty. Stable alignme nt. No evidence for hardware failure. There is persistent mild lucency involving the posterior margin of the tibial component seen on the lateral view only. Persistent ossification superior to the desir la on the lateral view. No acute fractures or dislocations. No suspicious bony lesions. Soft tissues: Persistent nqtzh-xeqzxrwk-wcqyx joint effusion. No suspicious soft tissue calcificatio ns. IMPRESSION: Stable postsurgical changes from left total knee arthroplasty. No evidence for hardware failure. Stable appearance of mild posterior lucency surrounding the left tibial hardware component s een on the lateral view only. Persistent jfmdx-tktodbod-dodtu joint effusion. Reviewed by: Lionel Daily MD on 05/03/2021 10:17 AM PST Approved by: Lionel Daily MD on 05/03/2021 10:17 AM PST Station ID: [id number]
== END 2021-05-03 12:00 ==
LOC: DI.WOS 09:00
PROVIDERS: ATTEND Orthopaedic Surgery
DX: Z96.652 Presence of left artificial knee joint (principal); M25.462 Effusion, left knee

== ENCOUNTER 2021-05-10 09:03 | Outpatient (CLI) | payer MEDICARE | END 2021-05-10 09:04 | disposition home or self-care (01) | LOC: LAB.S 09:03 | PROVIDERS: ATTEND Registered Nurse | DX: Z95.2 Presence of prosthetic heart valve (principal) | CPT/HCPCS: 36416; 85610 ==

== ENCOUNTER 2021-05-14 14:38 | Outpatient (CLI) | payer MEDICARE | END 2021-05-14 14:39 | disposition home or self-care (01) | LOC: LAB.S 14:38 | PROVIDERS: ATTEND Registered Nurse | DX: Z95.2 Presence of prosthetic heart valve (principal) | CPT/HCPCS: 36416; 85610 ==

== ENCOUNTER 2021-05-21 10:40 | Outpatient (CLI) | payer MEDICARE | END 2021-05-21 10:41 | disposition home or self-care (01) | LOC: LAB.S 10:40 | PROVIDERS: ATTEND Registered Nurse | DX: Z95.2 Presence of prosthetic heart valve (principal) | CPT/HCPCS: 36416; 85610 ==

== ENCOUNTER 2021-05-28 08:28 | Outpatient (CLI) | payer MEDICARE | END 2021-05-28 08:29 | disposition home or self-care (01) | LOC: LAB.S 08:28 | PROVIDERS: ATTEND Family Medicine | DX: Z95.2 Presence of prosthetic heart valve (principal) | CPT/HCPCS: 36416; 85610 ==

== ENCOUNTER 2021-06-04 10:19 | Outpatient (CLI) | payer MEDICARE | END 2021-06-04 10:20 | disposition home or self-care (01) | LOC: LAB.S 10:19 | PROVIDERS: ATTEND Registered Nurse | DX: Z95.2 Presence of prosthetic heart valve (principal) | CPT/HCPCS: 36416; 85610 ==

== ENCOUNTER 2021-06-18 10:05 | Outpatient (CLI) | payer MEDICARE | END 2021-06-18 10:06 | disposition home or self-care (01) | LOC: LAB.S 10:05 | PROVIDERS: ATTEND Registered Nurse | DX: Z95.2 Presence of prosthetic heart valve (principal) | CPT/HCPCS: 36416; 85610 ==

== ENCOUNTER 2021-06-25 08:31 | Outpatient (CLI) | payer MEDICARE | END 2021-06-25 08:32 | disposition home or self-care (01) | LOC: LAB.S 08:31 | PROVIDERS: ATTEND Registered Nurse | DX: Z95.2 Presence of prosthetic heart valve (principal) | CPT/HCPCS: 36416; 85610 ==

== ENCOUNTER 2021-07-02 08:55 | Outpatient (CLI) | payer MEDICARE | END 2021-07-02 08:56 | disposition home or self-care (01) | LOC: LAB.S 08:55 | PROVIDERS: ATTEND Registered Nurse | DX: Z95.2 Presence of prosthetic heart valve (principal) | CPT/HCPCS: 36416; 85610 ==

== ENCOUNTER 2021-07-14 10:07 | Outpatient (CLI) | payer MEDICARE | END 2021-07-14 10:08 | disposition home or self-care (01) | LOC: LAB.S 10:07 | PROVIDERS: ATTEND Registered Nurse | DX: Z95.2 Presence of prosthetic heart valve (principal) | CPT/HCPCS: 36416; 85610 ==

== ENCOUNTER 2021-07-23 09:05 | Outpatient (CLI) | payer MEDICARE | END 2021-07-23 09:06 | disposition home or self-care (01) | LOC: LAB.S 09:05 | PROVIDERS: ATTEND Registered Nurse | DX: Z95.2 Presence of prosthetic heart valve (principal) | CPT/HCPCS: 36416; 85610 ==

== ENCOUNTER 2021-08-06 09:14 | Outpatient (CLI) | payer MEDICARE | END 2021-08-06 09:15 | disposition home or self-care (01) | LOC: LAB.S 09:14 | PROVIDERS: ATTEND Registered Nurse | DX: Z95.2 Presence of prosthetic heart valve (principal) | CPT/HCPCS: 36416; 85610 ==

== ENCOUNTER 2021-08-13 09:50 | Outpatient (CLI) | payer MEDICARE | END 2021-08-13 09:51 | disposition home or self-care (01) | LOC: LAB.S 09:50 | PROVIDERS: ATTEND Registered Nurse | DX: Z95.2 Presence of prosthetic heart valve (principal) | CPT/HCPCS: 36416; 85610 ==

== ENCOUNTER 2021-09-10 08:18 | Outpatient (CLI) | payer MEDICARE | END 2021-09-10 08:19 | disposition home or self-care (01) | LOC: LAB.S 08:18 | PROVIDERS: ATTEND Registered Nurse | DX: Z95.2 Presence of prosthetic heart valve (principal) | CPT/HCPCS: 36416; 85610 ==

== ENCOUNTER 2021-11-15 09:14 | Outpatient (CLI) | payer MEDICARE | END 2021-11-15 09:15 | disposition home or self-care (01) | LOC: LAB.S 09:14 | PROVIDERS: ATTEND Registered Nurse | DX: Z95.2 Presence of prosthetic heart valve (principal) | CPT/HCPCS: 36416; 85610 ==

== ENCOUNTER 2021-11-18 09:41 | Outpatient (CLI) | payer MEDICARE | END 2021-11-18 09:42 | disposition home or self-care (01) | LOC: LAB.S 09:41 | PROVIDERS: ATTEND Registered Nurse | DX: Z95.2 Presence of prosthetic heart valve (principal) | CPT/HCPCS: 36416; 85610 ==

== ENCOUNTER 2021-11-23 08:34 | Outpatient (CLI) | payer MEDICARE | END 2021-11-23 08:35 | disposition home or self-care (01) | LOC: LAB.S 08:34 | PROVIDERS: ATTEND Registered Nurse | DX: Z95.2 Presence of prosthetic heart valve (principal) | CPT/HCPCS: 36416; 85610 ==

== ENCOUNTER 2021-11-30 09:31 | Outpatient (CLI) | payer MEDICARE | END 2021-11-30 09:32 | disposition home or self-care (01) | LOC: LAB.S 09:31 | PROVIDERS: ATTEND Registered Nurse | DX: Z95.2 Presence of prosthetic heart valve (principal) | CPT/HCPCS: 36416; 85610 ==

== ENCOUNTER 2021-12-02 09:59 | Outpatient (CLI) | payer MEDICARE ==
[2021-12-02 14:18] LABS: BILIRUBIN,URINE NEGATIVE (NEGATIVE); GLUCOSE, URINE (UA) NEGATIVE (NEGATIVE); KETONES,URINE (UA) NEGATIVE (NEGATIVE); LEUKOCYTE ESTERASE, URINE NEGATIVE (NEGATIVE); NITRITE,URINE NEGATIVE (NEGATIVE); OCCULT BLOOD,URINE NEGATIVE (NEGATIVE); PROTEIN,URINE NEGATIVE (NEGATIVE); UROBILINOGEN,URINE 0.2 (NORMAL) E.U./dL (NORMAL)
[2021-12-02 14:27] LABS: BACTERIA,URINE None Seen /HPF (None Seen); CLARITY,URINE CLEAR (CLEAR); RBC,URINE None Seen /HPF (0-5); SQUAMOUS EPITHELIAL CELL,UR RARE Squamous (<= Few); WBC,URINE 0-3 /HPF (0-3)
[2021-12-02 14:42] LABS: THYROID STIMULATING HORMONE 0.94 uIU/mL (0.34-5.60)
[2021-12-03 08:10] LABS: RPR Non Reactive (Non Reactive)
== END 2021-12-02 10:00 | disposition home or self-care (01) ==
LOC: LAB.S 09:59
PROVIDERS: ATTEND Internal Medicine
DX: R41.3 Other amnesia (principal); R41.82 Altered mental status, unspecified
CPT/HCPCS: 36415; 81001; 82607; 84443; 86592; 87086

== ENCOUNTER 2021-12-17 08:46 | Outpatient (CLI) | payer MEDICARE | END 2021-12-17 08:47 | disposition home or self-care (01) | LOC: LAB.S 08:46 | PROVIDERS: ATTEND Registered Nurse | DX: Z95.2 Presence of prosthetic heart valve (principal) | CPT/HCPCS: 36416; 85610 ==

== ENCOUNTER 2021-12-31 09:02 | Outpatient (CLI) | payer MEDICARE | END 2021-12-31 09:03 | disposition home or self-care (01) | LOC: LAB.S 09:02 | PROVIDERS: ATTEND Registered Nurse | DX: Z95.2 Presence of prosthetic heart valve (principal) | CPT/HCPCS: 36416; 85610 ==

== ENCOUNTER 2022-01-03 11:48 | Outpatient (CLI) | payer MEDICARE ==
--- NOTE | 2022-01-03 15:33 | CT Report ---
PROCEDURE: HEAD WO INDICATIONS: MEMORY LOSS,MENTAL STATUS CHANGE TECHNIQUE: Noncontrast 4.5 mm thick angled axial sections acquired from the foramen magnum to the vertex. For r adiation dose reduction, the following was used: automated exposure control, adjustment of mA and/or kV according to patient size. COMPARISON: Correlation is made with prior head CT angiogram, 07/15/2020 and prior noncontrast head C T, 05/19/2020. FINDINGS: Image quality: Motion artifact is noted. CSF spaces: Basal cisterns are patent. No extra-axial fluid collections. Ventricles are normal in size and shape. Brain: No midline shift. No intracranial masses or hemorrhage. [place]-white matter interface is norm al. Skull and face: Calvarium and visualized facial bones are intact, without suspicious lesions. Sinuses: Visualized sinuses and mastoids are clear. IMPRESSION: Limited study demonstrating no significant intracranial abnormality. Reviewed by: Giuliano Patel MD on 01/03/2022 2:31 PM AKST Approved by: Giuliano Patel MD on 01/03/2022 2:31 PM AK Station ID: [id number]
== END 2022-01-03 11:49 | disposition home or self-care (01) ==
LOC: DI 11:48
PROVIDERS: ATTEND Internal Medicine
DX: R41.3 Other amnesia (principal); R41.82 Altered mental status, unspecified

== ENCOUNTER 2022-01-14 08:03 | Outpatient (CLI) | payer MEDICARE | END 2022-01-14 08:04 | disposition home or self-care (01) | LOC: LAB.S 08:03 | PROVIDERS: ATTEND Registered Nurse | DX: Z95.2 Presence of prosthetic heart valve (principal) | CPT/HCPCS: 36416; 85610 ==

== ENCOUNTER 2022-02-11 10:36 | Outpatient (CLI) | payer MEDICARE | END 2022-02-11 10:37 | disposition home or self-care (01) | LOC: LAB.S 10:36 | PROVIDERS: ATTEND Registered Nurse | DX: Z95.2 Presence of prosthetic heart valve (principal) | CPT/HCPCS: 36416; 85610 ==

== ENCOUNTER 2022-02-25 11:26 | Outpatient (CLI) | payer MEDICARE | END 2022-02-25 11:27 | disposition home or self-care (01) | LOC: LAB.S 11:26 | PROVIDERS: ATTEND Registered Nurse | DX: Z95.2 Presence of prosthetic heart valve (principal) | CPT/HCPCS: 36416; 85610 ==

== ENCOUNTER 2022-03-04 10:34 | Outpatient (CLI) | payer MEDICARE | END 2022-03-04 10:35 | disposition home or self-care (01) | LOC: LAB.S 10:34 | PROVIDERS: ATTEND Registered Nurse | DX: Z95.2 Presence of prosthetic heart valve (principal) | CPT/HCPCS: 36416; 85610 ==

== ENCOUNTER 2022-03-15 10:12 | Outpatient (CLI) | payer MEDICARE | END 2022-03-15 10:13 | disposition home or self-care (01) | LOC: LAB.S 10:12 | PROVIDERS: ATTEND Registered Nurse | DX: Z95.2 Presence of prosthetic heart valve (principal) | CPT/HCPCS: 36416; 85610 ==

== ENCOUNTER 2022-03-21 11:50 | Outpatient (CLI) | payer MEDICARE | END 2022-03-21 11:51 | disposition home or self-care (01) | LOC: LAB.S 11:50 | PROVIDERS: ATTEND Registered Nurse | DX: Z95.2 Presence of prosthetic heart valve (principal) | CPT/HCPCS: 36416; 85610 ==

== ENCOUNTER 2022-04-04 09:33 | Outpatient (CLI) | payer MEDICARE | END 2022-04-04 09:34 | disposition home or self-care (01) | LOC: LAB.S 09:33 | PROVIDERS: ATTEND Registered Nurse | DX: Z95.2 Presence of prosthetic heart valve (principal) | CPT/HCPCS: 36416; 85610 ==

== ENCOUNTER 2022-04-12 10:07 | Outpatient (CLI) | payer MEDICARE | END 2022-04-12 10:08 | disposition home or self-care (01) | LOC: LAB.S 10:07 | PROVIDERS: ATTEND Registered Nurse | DX: Z95.2 Presence of prosthetic heart valve (principal) | CPT/HCPCS: 36416; 85610 ==

== ENCOUNTER 2022-04-15 09:29 | Outpatient (CLI) | payer MEDICARE ==
--- NOTE | 2022-04-15 12:55 | Ultrasound Report ---
PROCEDURE: Abdomen Complete INDICATIONS: ABD PAIN TECHNIQUE: Real-time scanning was performed of the abdominal and retroperitoneal organs, with image documentatio n. COMPARISON: None. FINDINGS: Liver: Measures 15.9 cm. Increased in echogenicity. Portal vein and hepatic veins are patent. Gallbladder: Gallbladder is nondistended. No stones or sludge. No gallbladder wall thickening. No per icholecystic fluid. Negative sonographic Bloom sign. Biliary ducts: Intrahepatic bile ducts are non-dilated. Extrahepatic bile duct caliber measures 6 m m. Normal is 6-7 mm or less in diameter, or 10 mm or less post-cholecystectomy. Pancreas: Visualized portions of the pancreas are sonographically normal. Spleen: Spleen is normal in size and homogeneous in echotexture. Measures 12.4 cm. Kidneys: Kidneys are normal in size and echotexture. Right kidney measures 10 cm long; left kidney measures 11.3 cm long. No hydronephrosis. Left kidney stone measuring is 0.5 cm. No solid masses. Aorta: Visualized aorta is normal in caliber at less than 3 cm. Iliacs: Proximal common iliac arteries are normal in caliber at less than 2.5 cm. IVC: Intrahepatic inferior vena cava is patent. Miscellaneous: No free abdominal fluid. IMPRESSION: 1. No acute cholecystitis. No gallstones. 2. Increased echogenicity of the hepatic parenchyma. This is most commonly seen in hepatic steatosis. Other forms of hepatocellular disease could have a similar appearance. 3. Suspect small left kidney stone. No hydronephrosis. Reviewed by: Abiodun Soto MD on 04/15/2022 12:54 PM PST Approved by: Abiodun Soto MD on 04/15/2022 12:54 PM PST Station ID: [id number]
== END 2022-04-15 09:30 | disposition home or self-care (01) ==
LOC: DI 09:29
PROVIDERS: ATTEND Registered Nurse
DX: R10.31 Right lower quadrant pain (principal)

== ENCOUNTER 2022-04-18 11:33 | Outpatient (CLI) | payer MEDICARE | END 2022-04-18 11:34 | disposition home or self-care (01) | LOC: LAB.S 11:33 | PROVIDERS: ATTEND Registered Nurse | DX: Z95.2 Presence of prosthetic heart valve (principal) | CPT/HCPCS: 36416; 85610 ==

== ENCOUNTER 2022-04-21 07:00 | Outpatient (CLI) | payer MEDICARE | END 2022-04-21 23:59 | disposition home or self-care (01) | LOC: LAB.S 07:00 | PROVIDERS: ATTEND Physician Assistant | DX: L02.212 Cutaneous abscess of back [any part, except buttock and flank] (principal) | CPT/HCPCS: 87070; 87077; 87181; 87205 ==

== ENCOUNTER 2022-04-22 08:55 | Outpatient (CLI) | payer MEDICARE | END 2022-04-22 08:56 | disposition home or self-care (01) | LOC: LAB.S 08:55 | PROVIDERS: ATTEND Registered Nurse | DX: Z95.2 Presence of prosthetic heart valve (principal) | CPT/HCPCS: 36416; 85610 ==

== ENCOUNTER 2022-05-06 09:41 | Outpatient (CLI) | payer MEDICARE | END 2022-05-06 09:42 | disposition home or self-care (01) | LOC: LAB.S 09:41 | PROVIDERS: ATTEND Registered Nurse | DX: Z95.2 Presence of prosthetic heart valve (principal) | CPT/HCPCS: 36416; 85610 ==

== ENCOUNTER 2022-05-13 09:08 | Outpatient (CLI) | payer MEDICARE | END 2022-05-13 09:09 | disposition home or self-care (01) | LOC: LAB.S 09:08 | PROVIDERS: ATTEND Registered Nurse | DX: Z95.2 Presence of prosthetic heart valve (principal) | CPT/HCPCS: 36416; 85610 ==

== ENCOUNTER 2022-05-24 09:08 | Outpatient (CLI) | payer MEDICARE ==
[2022-05-24 14:19] LABS: BASOPHILS # (AUTO) 0.1 10^3/uL (0.0-0.1); BASOPHILS % (AUTO) 1.3 %; EOSINOPHILS # (AUTO) 0.2 10^3/uL (0.0-0.7); EOSINOPHILS % (AUTO) 3.4 %; HCT - HEMATOCRIT 32.2 % (42.0-52.0); HGB - HEMOGLOBIN 9.2 g/dL (14.0-18.0); LYMPHOCYTES % (AUTO) 22.2 %; MEAN CORPUSCULAR HEMOGLOBIN 22.8 pg (27.0-31.0); MEAN CORPUSCULAR HGB CONC 28.6 g/dL (32.0-36.0); MEAN CORPUSCULAR VOLUME 79.9 fL (80.0-94.0); MEAN PLATELET VOLUME 11.2 fL (7.4-11.4); MONOCYTES # (AUTO) 0.4 10^3/uL (0.0-1.0); MONOCYTES % (AUTO) 9.4 %; NEUTROPHILS % (AUTO) 63.5 %; PLT - PLATELET COUNT 267 10^3/uL (130-450); RED BLOOD COUNT 4.03 10^6/uL (4.70-6.10); RED CELL DISTRIBUTION WIDTH 16.6 % (12.0-15.0); WHITE BLOOD COUNT 4.7 x10^3/uL (4.8-10.8)
[2022-05-24 14:36] LABS: SLIDE REVIEW? Indicated
[2022-05-24 15:20] LABS: PLATELET ESTIMATE, MANUAL NORMAL (130-450,000) (NORMAL); PLATELET MORPHOLOGY NORMAL APPEARANCE (NORMAL)
[2022-05-24 15:46] LABS: ALBUMIN/GLOBULIN RATIO 1.4 (1.0-2.2); ALKALINE PHOSPHATASE 44 IU/L (42-121); ALT ALANINE AMINOTRANSFERASE 37 IU/L (10-60); AST ASPARTATE AMINOTRANSFERASE 29 IU/L (10-42); BILIRUBIN,TOTAL 0.3 mg/dL (0.2-1.0); BUN - BLOOD UREA NITROGEN 18 mg/dL (6-20); CALCIUM 8.6 mg/dL (8.5-10.3); CARBON DIOXIDE - CO2 27 mmol/L (21-32); CHLORIDE 107 mmol/L (101-111); CHOL/HDL RATIO 2.1 (<5.0); CHOLESTEROL 131 mg/dL; CREATININE 0.8 mg/dL (0.6-1.2); GFR - MDRD 94 (>89); GLUCOSE 102 mg/dL (70-100); HDL CHOLESTEROL 61 mg/dL; LDL CHOLESTEROL,CALCULATED 57 mg/dL; LDL/HDL RATIO 0.9 (<3.6); SODIUM 137 mmol/L (135-145); TOTAL PROTEIN 6.8 g/dL (6.7-8.2); TRIGLYCERIDES 65 mg/dL; VLDL CHOLESTEROL 13 mg/dL
== END 2022-05-24 09:09 | disposition home or self-care (01) ==
LOC: LAB.S 09:08
PROVIDERS: ATTEND Registered Nurse
DX: I10 Essential (primary) hypertension (principal); Z95.2 Presence of prosthetic heart valve; Z13.220 Encounter for screening for lipoid disorders; Z79.899 Other long term (current) drug therapy
CPT/HCPCS: 36415; 80053; 80061; 83721; 85025; 85610

== ENCOUNTER 2022-06-03 09:57 | Outpatient (CLI) | payer MEDICARE | END 2022-06-03 09:58 | disposition home or self-care (01) | LOC: LAB.S 09:57 | PROVIDERS: ATTEND Registered Nurse | DX: Z95.2 Presence of prosthetic heart valve (principal) | CPT/HCPCS: 36416; 85610 ==

== ENCOUNTER 2022-06-20 11:10 | Outpatient (CLI) | payer MEDICARE | END 2022-06-20 11:11 | disposition home or self-care (01) | LOC: LAB.S 11:10 | PROVIDERS: ATTEND Registered Nurse | DX: Z95.2 Presence of prosthetic heart valve (principal) | CPT/HCPCS: 36416; 85610 ==

== ENCOUNTER 2022-07-01 09:41 | Outpatient (CLI) | payer MEDICARE | END 2022-07-01 09:42 | disposition home or self-care (01) | LOC: LAB.S 09:41 | PROVIDERS: ATTEND Registered Nurse | DX: Z95.2 Presence of prosthetic heart valve (principal) | CPT/HCPCS: 36416; 85610 ==

== ENCOUNTER 2022-07-09 08:00 | Outpatient (CLI) | payer MEDICARE | END 2022-07-09 23:59 | disposition home or self-care (01) | LOC: LAB.S 08:00 | PROVIDERS: ATTEND Physician Assistant | DX: R42 Dizziness and giddiness (principal) | CPT/HCPCS: 82962 ==

== ENCOUNTER 2022-07-15 08:07 | Outpatient (CLI) | payer MEDICARE | END 2022-07-15 08:08 | disposition home or self-care (01) | LOC: LAB.S 08:07 | PROVIDERS: ATTEND Registered Nurse | DX: Z95.2 Presence of prosthetic heart valve (principal) | CPT/HCPCS: 36416; 85610 ==

== ENCOUNTER 2022-07-22 09:53 | Outpatient (CLI) | payer MEDICARE | END 2022-07-22 09:54 | disposition home or self-care (01) | LOC: LAB.S 09:53 | PROVIDERS: ATTEND Registered Nurse | DX: Z95.2 Presence of prosthetic heart valve (principal) | CPT/HCPCS: 36416; 85610 ==

== ENCOUNTER 2022-07-29 09:23 | Outpatient (CLI) | payer MEDICARE | END 2022-07-29 23:59 | disposition home or self-care (01) | LOC: LAB.S 09:23 | PROVIDERS: ATTEND Registered Nurse | DX: Z95.2 Presence of prosthetic heart valve (principal) | CPT/HCPCS: 36416; 85610 ==

== ENCOUNTER 2022-08-05 10:15 | Outpatient (CLI) | payer MEDICARE | END 2022-08-05 10:16 | disposition home or self-care (01) | LOC: LAB.S 10:15 | PROVIDERS: ATTEND Registered Nurse | DX: Z95.2 Presence of prosthetic heart valve (principal) | CPT/HCPCS: 36416; 85610 ==

== ENCOUNTER 2022-08-12 09:28 | Outpatient (CLI) | payer MEDICARE | END 2022-08-12 09:29 | disposition home or self-care (01) | LOC: LAB.S 09:28 | PROVIDERS: ATTEND Registered Nurse | DX: Z95.2 Presence of prosthetic heart valve (principal) | CPT/HCPCS: 36416; 85610 ==

== ENCOUNTER 2022-08-19 08:38 | Outpatient (CLI) | payer MEDICARE | END 2022-08-19 08:39 | disposition home or self-care (01) | LOC: LAB.S 08:38 | PROVIDERS: ATTEND Registered Nurse | DX: Z95.2 Presence of prosthetic heart valve (principal) | CPT/HCPCS: 36416; 85610 ==

== ENCOUNTER 2022-08-26 11:09 | Outpatient (CLI) | payer MEDICARE | END 2022-08-26 11:10 | disposition home or self-care (01) | LOC: LAB.S 11:09 | PROVIDERS: ATTEND Registered Nurse | DX: Z95.2 Presence of prosthetic heart valve (principal) | CPT/HCPCS: 36416; 85610 ==

== ENCOUNTER 2022-09-02 07:56 | Outpatient (CLI) | payer MEDICARE | END 2022-09-02 07:57 | disposition home or self-care (01) | LOC: LAB.S 07:56 | PROVIDERS: ATTEND Registered Nurse | DX: Z95.2 Presence of prosthetic heart valve (principal) | CPT/HCPCS: 36416; 85610 ==

== ENCOUNTER 2022-09-12 08:54 | Outpatient (CLI) | payer MEDICARE | END 2022-09-12 08:55 | disposition home or self-care (01) | LOC: LAB.S 08:54 | PROVIDERS: ATTEND Registered Nurse | DX: Z95.2 Presence of prosthetic heart valve (principal) | CPT/HCPCS: 36416; 85610 ==

== ENCOUNTER 2022-09-23 08:09 | Outpatient (CLI) | payer MEDICARE | END 2022-09-23 08:10 | disposition home or self-care (01) | LOC: LAB.S 08:09 | PROVIDERS: ATTEND Registered Nurse | DX: Z95.2 Presence of prosthetic heart valve (principal) | CPT/HCPCS: 36416; 85610 ==

== ENCOUNTER 2022-09-30 10:03 | Outpatient (CLI) | payer MEDICARE | END 2022-09-30 10:04 | disposition home or self-care (01) | LOC: LAB.S 10:03 | PROVIDERS: ATTEND Registered Nurse | DX: Z95.2 Presence of prosthetic heart valve (principal) | CPT/HCPCS: 36416; 85610 ==

== ENCOUNTER 2022-10-14 07:34 | Outpatient (CLI) | payer MEDICARE | END 2022-10-14 07:35 | disposition home or self-care (01) | LOC: LAB.S 07:34 | PROVIDERS: ATTEND Registered Nurse | DX: Z95.2 Presence of prosthetic heart valve (principal) | CPT/HCPCS: 36416; 85610 ==

== ENCOUNTER 2022-10-21 08:47 | Outpatient (CLI) | payer MEDICARE | END 2022-10-21 08:48 | disposition home or self-care (01) | LOC: LAB.S 08:47 | PROVIDERS: ATTEND Registered Nurse | DX: Z95.2 Presence of prosthetic heart valve (principal) | CPT/HCPCS: 36416; 85610 ==

== ENCOUNTER 2022-11-04 09:15 | Outpatient (CLI) | payer MEDICARE | END 2022-11-04 09:16 | disposition home or self-care (01) | LOC: LAB.S 09:15 | PROVIDERS: ATTEND Registered Nurse | DX: Z95.2 Presence of prosthetic heart valve (principal) | CPT/HCPCS: 36416; 85610 ==

== ENCOUNTER 2022-11-04 13:11 | Emergency (ER) | payer MEDICARE ==
--- NOTE | 2022-11-04 13:51 | ED Physician Documentation ---
PD HPI HEAD INJURY - Stated complaint Stated Complaint: GLF - Chief complaint Chief Complaint: Trauma Hd/Nk - History obtained from History obtained from: Patient, Family - Additional information Additional information: The patient comes to the emergency department with chief complaint of head injury this morning. He states he was turning around in his bathroom when he suddenly lost his balance and ended up falling and hitting his head against the edge of the bathtub. He states he did not lose consciousness and actually felt pretty fine afterward, but was already going to the [facility] for another reason. He states that when he got there, he told them about the fall and because he is on Coumadin, they told him he needed to come here and have imaging. The patient denies any headache. No neck pain. He states that on the way here, both shoulders felt "heavy" and that he felt the heaviness go down both arms. He states this was fairly brief and is resolved now. He denies any shortness of breath, chest pain, or nausea at any time. The patient denies any focal neurologic deficits. No visual changes since the head injury. No other complaints at this time. PD PAST MEDICAL HISTORY - Past Medical History Cardiovascular: Hypertension, Atrial fibrillation, Arrhythmia, Valve disorder, Other Respiratory: Sleep apnea, CPAP use Endocrine/Autoimmune: None GI: None : None HEENT: Chronic vision loss, Chronic hearing loss, Other Psych: None Musculoskeletal: Osteoarthritis Derm: Other - Past Surgical History Past Surgical History: Yes Cardiovascular: Valve replacement HEENT: Cataracts, Other - Present Medications Home Medications: Ambulatory Orders Medication Instructions Recorded Confirmed Cholecalciferol (Vitamin D3) 1 tab PO DAILY 03/24/16 12/30/20 [Vitamin D3] Multivitamin [Multiple Vitamins] 1 tab PO DAILY 03/24/16 11/10/20 C,E,Zinc,Copper 11/Ravsh4b/Lut 1 each PO DAILY 04/16/20 11/10/20 [Ocuvite Adult 50 Plus Softgel] Chlorthalidone 25 mg ORAL DAILY 07/15/20 12/30/20 Losartan [Cozaar] 50 mg PO DAILY 12/30/20 12/30/20 Warfarin Sodium [Jantoven] 5 mg PO DAILY 12/30/20 12/30/20 - Allergies Allergies/Adverse Reactions: Allergies Allergy/AdvReac Type Severity Reaction Status Date / Time No Known Drug Allergies Allergy Verified 11/04/22 14:44 - Social History Does the pt smoke?: No Smoking Status: Never smoker Does the pt drink ETOH?: No Does the pt have substance abuse?: No - Immunizations Immunizations are current?: Yes PD ED PE NORMAL - Vitals Vital signs reviewed: Yes - General General: Alert and oriented X 3, No acute distress, Well developed/nourished - HEENT HEENT: Atraumatic, PERRL, EOMI, Moist mucous membranes - Neck Neck: Supple, no meningeal sign, No bony TTP - Cardiac Cardiac: RRR, No murmur - Respiratory Respiratory: No respiratory distress, Clear bilaterally - Abdomen Abdomen: Soft, Non tender, Non distended - Back Back: No spinal TTP - Derm Derm: Normal color, Warm and dry, No rash - Extremities Extremities: No deformity, No edema - Neuro Neuro: Alert and oriented X 3, 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, No motor deficit, No sensory deficit, Normal speech - Psych Psych: Normal mood, Normal affect Results - Vitals Vitals: Vital Signs - 24 hr 11/04/22 13:15 Temperature 36.5 C Heart Rate 61 Respiratory 16 Rate Blood Pressure 117/65 O2 Saturation 99 Oxygen O2 Source Room air - Rads (name of study) CT head no contrast Relevant Findings:: Final report received, See rad report (Negative for acute findings) PD Medical Decision Making - ED course Complexity details: reviewed results, re-evaluated patient, considered differential, d/w patient, d/w family ED course: The patient was well-appearing in the emergency department and neurologically intact. He was worked up with CT scan of the head. The CT scan of the head was negative. Mason the patient was stable for discharge home. We have discussed the usual indications for return. Departure - Departure Disposition: 01 Home, Self Care Clinical Impression: Closed head injury Qualifiers: Encounter type: initial encounter Qualified Code(s): S09.90XA - Unspecified injury of head, initial encounter Condition: Stable Instructions: ED Head Injury Closed Comments: Your CT scan looks great. There is no evidence of any broken bones or any bleeding in your brain. You may continue your activities and medications as usual. Please follow-up with your primary doctor as needed. Forms: PCP List
--- NOTE | 2022-11-04 14:41 | CT Report ---
PROCEDURE: HEAD WO INDICATIONS: head injury on coumadin TECHNIQUE: Noncontrast 4.5 mm thick angled axial sections acquired from the foramen magnum to the vertex. For r adiation dose reduction, the following was used: automated exposure control, adjustment of mA and/or kV according to patient size. COMPARISON: None. FINDINGS: Image quality: Excellent. The ventricular system and cortical sulci demonstrate atrophy, consistent for patient's stated age. There are areas of hypodensity in the periventricular and subcortical white matter. There is no acut e intra or extra-axial fluid collection. No acute hemorrhage, mass lesion or midline shift. Brainst em is unremarkable. Globes are symmetrical. Sinuses are aerated. Osseous structures are intact. IMPRESSION: 1. No acute intracranial process. 2. Mild to moderate atrophy and chronic microvascular ischemic changes. Reviewed by: Toya Hanson MD on 11/04/2022 2:40 PM PDT Approved by: Toya Hanson MD on 11/04/2022 2:40 PM PDT Station ID: [id number]
[2022-11-04 15:06] VITALS: BP 129/82; O2SAT 100
== END 2022-11-04 14:57 | disposition home or self-care (01) ==
LOC: ED 13:11
DX: S09.90XA Unspecified injury of head, initial encounter (principal); W18.39XA Other fall on same level, initial encounter; Y93.89 Activity, other specified; Y92.002 Bathroom of unspecified non-institutional (private) residence as the place of occurrence of the external cause; Z79.01 Long term (current) use of anticoagulants; Z95.2 Presence of prosthetic heart valve
CPT/HCPCS: 36415; 36416; 85610; 99283; 99284

== ENCOUNTER 2022-11-11 09:23 | Outpatient (CLI) | payer MEDICARE | END 2022-11-11 09:24 | disposition home or self-care (01) | LOC: LAB.S 09:23 | PROVIDERS: ATTEND Registered Nurse | DX: Z95.2 Presence of prosthetic heart valve (principal) | CPT/HCPCS: 36416; 85610 ==

== ENCOUNTER 2022-12-19 09:57 | Outpatient (CLI) | payer MEDICARE | END 2022-12-19 09:58 | disposition home or self-care (01) | LOC: LAB.S 09:57 | PROVIDERS: ATTEND Registered Nurse | DX: Z95.2 Presence of prosthetic heart valve (principal) | CPT/HCPCS: 36416; 85610 ==

== ENCOUNTER 2022-12-23 10:31 | Outpatient (CLI) | payer MEDICARE | END 2022-12-23 10:32 | disposition home or self-care (01) | LOC: LAB.S 10:31 | PROVIDERS: ATTEND Registered Nurse | DX: Z95.2 Presence of prosthetic heart valve (principal) | CPT/HCPCS: 36416; 85610 ==

== ENCOUNTER 2022-12-30 08:35 | Outpatient (CLI) | payer MEDICARE | END 2022-12-30 08:36 | disposition home or self-care (01) | LOC: LAB.S 08:35 | PROVIDERS: ATTEND Registered Nurse | DX: Z95.2 Presence of prosthetic heart valve (principal) | CPT/HCPCS: 36416; 85610 ==

== ENCOUNTER 2023-01-06 08:50 | Outpatient (CLI) | payer MEDICARE | END 2023-01-06 08:51 | disposition home or self-care (01) | LOC: LAB.S 08:50 | PROVIDERS: ATTEND Registered Nurse | DX: Z95.2 Presence of prosthetic heart valve (principal) | CPT/HCPCS: 36416; 85610 ==

== ENCOUNTER 2023-01-09 08:46 | Outpatient (CLI) | payer MEDICARE ==
--- NOTE | 2023-01-09 21:03 | SLEEP CARE CONSULTATION ---
Information from patient questionnaire entered by Felipa Goodrich. I have reviewed and concur with the information entered by Felipa Goodrich. This document represents the service I personally performed and the decisions made by me, Brinda Adler MD, [facility]. History of Present Illness Service Date and Time: 01/09/2023 0846 Reason for follow up: annual (LAST SEEN 09/2021) Equipment type: CPAP (RESMED) Mask style: Full face HPI additional information: IMPRESSION: 1. Obstructive Sleep Apnea-Hypopnea Syndrome, severe (AHI was 43.2 in 2005) with the patient continuing to do well on nasal CPAP therapy. He has excellent compliance and significant clinical benefits. The current pressure appears effective and comfortable. Overall, he is very satisfied with treatment and plans to continue with it long-term. Because the CPAP is now older than the useful life of 5 years, I will order the patient a new one and make it an autoCPAP set between 4 and 6 cmH2O. PLAN: 1. Prescription made for a new autoCPAP, heated humidifier, and related supplies through [employer]. 2. Return in one year for follow up or earlier if there is any problem with the treatment. CPAP Compliance Data - Data Reviewed with Patient Average duration of nightly device use: 6HRS 33MINS Compliance rate %: 72 (01/09/2022-01/08/2023) Current pressure setting (cmH2O): 8-FULLTIME Average residual AHI: 0.5 Subjective Current [place] Sleepiness Scale score: 10 (01/09/23) Allergies and Home Medications Drug allergies reviewed: Yes Home medication list reviewed: Yes Allergy and home medication list: Allergies No Known Drug Allergies Allergy (Verified 01/09/23 07:47) Review of Systems Review of systems same as previous: Yes Physical Exam Vital signs obtained and entered by: FELIPA Burrows MA Blood Pressure: 124/72 (LEFT ARM) Cuff size: regular Heart Rate: 68 O2 Saturation: 96 Height: 5 ft 3 in Weight: 169 lb 12.8 oz Body Mass Index: 30.0 BMI Classification: Obese Impression and Plan IMPRESSION: 1. Obstructive Sleep Apnea-Hypopnea Syndrome, severe (AHI was 43.2 in 2005) with the patient continuing to do well on nasal CPAP therapy. He has excellent compliance and significant clinical benefits. The current pressure appears effective and comfortable. Overall, he is very satisfied with treatment and plans to continue with it long-term. Because the CPAP is now older than the useful life of 5 years, I will order the patient a new one and make it an autoCPAP set between 4 and 6 cmH2O. PLAN: 1. Prescription made for a new autoCPAP, heated humidifier, and related supplies through [employer]. 2. Return in one year for follow up or earlier if there is any problem with the treatment. Prescriptions: Auto CPAP Follow up with Sleep Care in: 1 year Visit Type: In Office Time Spent with Patient (minutes): 15 Provider Statement: I spent 100% of the Face to Face Visit with the patient with greater than 50% spent counseling the patient and coordination of care.
[2023-01-09 21:09] VITALS: BP 124/72; O2SAT 96
== END 2023-01-09 08:47 | disposition home or self-care (01) ==
LOC: SC 08:46
PROVIDERS: ATTEND Internal Medicine Pulmonary Disease
DX: G47.33 Obstructive sleep apnea (adult) (pediatric) (principal); E66.9 Obesity, unspecified; Z68.30 Body mass index [BMI] 30.0-30.9, adult
CPT/HCPCS: 99212; G0463

== ENCOUNTER 2023-01-20 10:00 | Outpatient (CLI) | payer MEDICARE | END 2023-01-20 10:01 | disposition home or self-care (01) | LOC: LAB.S 10:00 | PROVIDERS: ATTEND Registered Nurse | DX: Z95.2 Presence of prosthetic heart valve (principal) | CPT/HCPCS: 36416; 85610 ==

== ENCOUNTER 2023-02-03 10:02 | Outpatient (CLI) | payer MEDICARE | END 2023-02-03 10:03 | disposition home or self-care (01) | LOC: LAB.S 10:02 | PROVIDERS: ATTEND Registered Nurse | DX: Z95.2 Presence of prosthetic heart valve (principal) | CPT/HCPCS: 36416; 85610 ==

== ENCOUNTER 2023-02-17 12:37 | Outpatient (CLI) | payer MEDICARE | END 2023-02-17 12:38 | disposition home or self-care (01) | LOC: LAB.S 12:37 | PROVIDERS: ATTEND Registered Nurse | DX: Z09 Encounter for follow-up examination after completed treatment for conditions other than malignant neoplasm (principal); Z95.2 Presence of prosthetic heart valve | CPT/HCPCS: 36416; 85610 ==

== ENCOUNTER 2023-03-06 09:45 | Outpatient (CLI) | payer MEDICARE | END 2023-03-06 09:46 | disposition home or self-care (01) | LOC: LAB.S 09:45 | PROVIDERS: ATTEND Registered Nurse | DX: Z95.2 Presence of prosthetic heart valve (principal) | CPT/HCPCS: 36416; 85610 ==

== ENCOUNTER 2023-04-07 12:27 | Outpatient (CLI) | payer MEDICARE | END 2023-04-07 12:28 | disposition home or self-care (01) | LOC: LAB.S 12:27 | PROVIDERS: ATTEND Registered Nurse | DX: Z09 Encounter for follow-up examination after completed treatment for conditions other than malignant neoplasm (principal); Z95.2 Presence of prosthetic heart valve | CPT/HCPCS: 36416; 85610 ==

== ENCOUNTER 2023-04-10 08:37 | Outpatient (CLI) | payer MEDICARE | END 2023-04-10 08:38 | disposition home or self-care (01) | LOC: LAB.S 08:37 | PROVIDERS: ATTEND Registered Nurse | DX: Z09 Encounter for follow-up examination after completed treatment for conditions other than malignant neoplasm (principal); Z95.2 Presence of prosthetic heart valve | CPT/HCPCS: 36416; 85610 ==

== ENCOUNTER 2023-04-13 10:20 | Outpatient (CLI) | payer MEDICARE | END 2023-04-13 10:21 | disposition home or self-care (01) | LOC: LAB.S 10:20 | PROVIDERS: ATTEND Registered Nurse | DX: Z09 Encounter for follow-up examination after completed treatment for conditions other than malignant neoplasm (principal); Z95.2 Presence of prosthetic heart valve | CPT/HCPCS: 36416; 85610 ==

== ENCOUNTER 2023-04-17 14:56 | Outpatient (CLI) | payer MEDICARE | END 2023-04-17 23:59 | disposition short-term general hospital (02) | LOC: EMS 14:56 | DX: R41.82 Altered mental status, unspecified (principal); R50.9 Fever, unspecified; R47.81 Slurred speech; R32 Unspecified urinary incontinence; G81.91 Hemiplegia, unspecified affecting right dominant side | CPT/HCPCS: A0425; A0427 ==